=== PATIENT | female | born 1940 | race Caucasian/White ===

== ENCOUNTER 2022-01-20 14:08 | Inpatient (IN) | payer OTHER, MEDICARE ==
--- OUTSIDE RECORDS SUMMARY | 2022-01-20 14:11 | XMS REPORT | Continuity of Care Document ---
:1940 Author Organization [facility] Address [address] [place] [address] Care Team Providers Name Role Phone ALO Attending Clinician Unavailable KEYANA Attending Clinician Unavailable ADELINA Attending Clinician Unavailable ANDRES Attending Clinician Unavailable Problems This patient has no known problems. Allergies, Adverse Reactions, Alerts This patient has no known allergies or adverse reactions. Medications This patient has no known medications. Procedures This patient has no known procedures. Encounters Start End Encounter Admission Attending Care Care Encounter Source Date/Time Date/Time Type Type Clinicians Facility Department ID 2022-01-01 2022-01-01 Outpatient [facility] [id number] [place] 00:00:00 00:00:00 DENISE [address] 2021-11-21 2021-11-21 [facility] [id number] [place] 00:00:00 00:00:00 DENISE [address] 2021-10-25 2021-10-25 [facility] [id number] [place] 00:00:00 00:00:00 DENISE [address] 2021-09-06 2021-09-06 [facility] [id number] [place] 00:00:00 00:00:00 LISA [address] 2021-08-17 2021-08-17 [facility] [id number] [place] 00:00:00 00:00:00 LISA [address] 2021-08-14 2021-08-14 [facility] [id number] [place] 00:00:00 00:00:00 LISA [address] 2021-08-11 2021-08-11 [facility] [id number] [place] 00:00:00 00:00:00 LISA [address] 2021-08-09 2021-08-09 Outpatient WEINER, [facility] [id number] [place] 00:00:00 00:00:00 LISA [address] 2021-08-02 2021-08-02 Outpatient WEINER, [facility] [id number] [place] 00:00:00 00:00:00 LISA [address] 2021-07-31 2021-07-31 Outpatient WEINER, [facility] [id number] [place] 00:00:00 00:00:00 LISA [address] 2021-07-11 2021-07-11 Outpatient WEINER, [facility] [id number] [place] 00:00:00 00:00:00 LISA [address] 2021-07-06 2021-07-06 Outpatient WEINER, [facility] [id number] [place] 00:00:00 00:00:00 LISA [address] 2021-07-06 2021-07-06 Outpatient WEINER, [facility] [id number] [place] 00:00:00 00:00:00 LISA [address] 2021-07-04 2021-07-04 Outpatient WEINER, [facility] [id number] [place] 00:00:00 00:00:00 LISA [address] 2021-06-29 2021-06-29 Outpatient ALO, [facility] [id number] [place] 00:00:00 00:00:00 DENISE [address] 2021-05-24 2021-05-24 Outpatient [facility] [id number] [place] 00:00:00 00:00:[address] 2020-12-28 2020-12-28 Outpatient ALO, [facility] [id number] [place] 00:00:00 00:00:00 DENISE [address] 2020-09-09 2020-09-09 Outpatient SAHU, DIONNE [facility] [id number] [place] 00:00:00 00:00:[address] 2020-06-29 2020-06-29 Outpatient ALO, [facility] [id number] [place] 00:00:00 00:00:00 DENISE [address] 2020-06-29 2020-06-29 Outpatient ALO [facility] [id number] [place] 00:00:00 00:00:00 DENISE [address] 2019-12-15 2019-12-15 Outpatient ALO [facility] [id number] [place] 00:00:00 00:00:00 DENISE [address] 2019-11-13 2019-11-13 Outpatient ANDRES [facility] [id number] [place] 00:00:00 00:00:00 WILLEM [address] 2019-11-13 2019-11-13 Outpatient ANDRES [facility] [id number] [place] 00:00:00 00:00:00 WILLEM [address] 2019-08-20 2019-08-20 Outpatient DIONNE SAHU [facility] [id number] [place] 00:00:00 00:00:[address] 2019-08-20 2019-08-20 Outpatient DIONNE SAHU [facility] [id number] [place] 00:00:00 00:00:[address] 2019-06-11 2019-06-11 Outpatient ALO [facility] [id number] [place] 00:00:00 00:00:00 DENISE [address] Results This patient has no known results.
[2022-01-20 15:03] LABS: Absolute Lymphocytes (CBC) 1.6 K/uL (0.7-4.9); Hematocrit 38.6 % (36.0-45.0); Lymphocytes % 19.3 % (15.3-44.8); Protime INR 0.98; RBC Red Blood Cell Count 4.38 M/uL (3.86-4.86)
[2022-01-20] MEDS ORDERED: NA CHLORIDE 0.9% 1,000 ML ONE (15:18)
[2022-01-20] MEDS ORDERED: ONDANSETRON 4 MG/2 ML VIAL ONE (15:18)
[2022-01-20] MEDS ORDERED: MECLIZINE HCL 12.5 MG TAB ONE (15:18)
[2022-01-20 15:22] LABS: Albumin 4.2 g/dL (3.4-5.0); Bilirubin Direct 0.2 mg/dL (0-0.2); Bilirubin Total 0.8 mg/dL (0.2-1.0); Magnesium 1.8 mg/dL (1.8-2.4); Potassium 4.5 mmol/L (3.5-5.1); Protein, Total 7.9 g/dL (6.4-8.2); Troponin High Sensitivity 23.7 pg/mL (<58.9)
[2022-01-20 15:25] LABS: Blood Morphology Comment NOT SEEN (NOT SEEN); Platelet Estimate ADEQ; White Blood Cell Scan OK (OK)
--- NOTE | 2022-01-20 15:57 | RAD REPORT ---
EXAM DESCRIPTION: CT - Head Brain Wo Cont - 01/20/2022 3:42 pm CLINICAL HISTORY: Head trauma, minor COMPARISON: No comparisons TECHNIQUE: Axial 5 mm thick images of the head were obtained without IV contrast. All CT scans are performed using dose optimization technique as appropriate and may include automated exposure control or mA/KV adjustment according to patient size. FINDINGS: No intracranial hemorrhage, mass, edema or shift of mid-line structures. No cortical based infarction seen. No cortical edema or sulcal effacement. Mild to moderate atrophy changes are presen t with ventricles in proportion to the amount of volume loss. Chronic ischemic change in the cerebral white matter is mild for age. Arterial tree calcifications are present. No abnormal extra-axial flui d collections. Mastoid air cells and visualized portions of the paranasal sinuses are clear. No acute bony findings. IMPRESSION: Negative non-contrast CT head examination for acute finding. Mild to moderate atrophy present with ventricles in proportion. Chronic ischemic changes are mild.
--- NOTE | 2022-01-20 16:57 | RAD REPORT ---
EXAM DESCRIPTION: RAD - Pelvis - 01/20/2022 4:12 pm CLINICAL HISTORY: BLUNT TRAUMA COMPARISON: PELVIS dated 03/29/2015; Hip Left 2 View dated 01/20/2022 TECHNIQUE: AP imaging of the pelvis was obtained. FINDINGS: Lower lumbar degenerative changes are present. There are prominent L5-S1 facet joint degen erative changes. SI joint degenerative changes mild. No acute sacral ala finding. These lumbosacral f indings are stable from comparison. No fracture of the bony pelvis. No acute hip joint finding. Bony hypertrophy is seen adjacent to each greater trochanter. No AVN or focal femoral head abnormality. Arterial tree calcifications are prese nt. IMPRESSION: No fracture or acute pelvis finding.
--- NOTE | 2022-01-20 16:59 | RAD REPORT ---
EXAM DESCRIPTION: RAD - Hip Left 2 View - 01/20/2022 4:12 pm CLINICAL HISTORY: PAIN COMPARISON: Hip Left 2 View dated 03/29/2015 FINDINGS: AP and frogleg views of the left hip were obtained. There is no fracture or dislocation. No acute or destructive bony process seen. Degenerative spurrin g changes are seen at the greater trochanter similar to comparison. Arterial calcifications are prese nt. No periarticular abnormality seen. IMPRESSION: Left hip joint degenerative changes are present as detailed. No acute findings seen. Hip findings are similar to the 2015 study.
--- NOTE | 2022-01-20 16:59 | RAD REPORT ---
EXAM DESCRIPTION: RAD - Chest Single View - 01/20/2022 4:12 pm CLINICAL HISTORY: CONGESTION COMPARISON: None available TECHNIQUE: AP portable chest image was obtained 01/20/2022 4:12 pm . FINDINGS: Lung volumes are low. No peripheral mass or consolidation. Heart and vasculature are linette l. No measurable pleural effusion and no pneumothorax. No acute bony abnormality seen. No acute aorti c findings suspected. IMPRESSION: No acute cardiopulmonary process.
--- NOTE | 2022-01-20 17:06 | ER ---
Nurse's Notes [facility] Name: Darlyn Nicole Age: 81 yrs Sex: Female : 1940 Arrival Date: 01/20/2022 Time: 14:11 Bed 15 Private MD: Diagnosis: Hypo-osmolality and hyponatremia Presentation: 01/20 14:30 Chief complaint: Patient states: Dizziness, N/V that began approximately 1 week ago. Pt ss reports she fell from standing on Saturday and then today rolled out of bed. Did not injure herself, but is concerned that the dizziness may be causing her frequent falls. Coronavirus screen: Client denies travel out of the [place] in the last 14 days. Ebola Screen: Patient denies exposure to infectious person. Patient denies travel to an Ebola-affected area in the 21 days before illness onset. Initial Sepsis Screen: Does the patient meet any 2 criteria? No. Patient's initial sepsis screen is negative. Does the patient have a suspected source of infection? No. Patient's initial sepsis screen is negative. Risk Assessment: Do you want to hurt yourself or someone else? Patient reports no desire to harm self or others. Onset of symptoms was January 13, 2022. 14:30 Method Of Arrival: Wheelchair ss 14:30 Acuity: JOSEFINA 3 ss Historical: - Allergies: 14:33 Amoxicillin; ss 14:59 Macrobid; vg1 14:59 Metoprolol Tartrate; vg1 14:59 rosuvastatin; vg1 - Home Meds: 14:59 amlodipine oral [Active]; atorvastatin oral [Active]; Desmopressin Acetate Nasal vg1 [Active]; gabapentin oral [Active]; Lisinopril Oral [Active]; meloxicam oral [Active]; Myrbetriq oral [Active]; Omeprazole Oral [Active]; solifenacin oral [Active]; Triamterene-Hydrochlorothiazid Oral [Active]; - PMHx: 14:59 Restless Leg Syndrome; Syncope; CAD; Hypercholesterolemia; Depressive disorder; vg1 Osteoarthritis; Osteopenia; Sleep apnea; - PSHx: 14:59 CABG; vg1 - Immunization history:: Client reports receiving the 2nd dose of the Covid vaccine. - Social history:: Smoking status: Patient denies any tobacco usage or history of. - Family history:: not pertinent. Screenin:45 Abuse screen: Denies threats or abuse. Denies injuries from another. Nutritional awad screening: No deficits noted. Tuberculosis screening: No symptoms or risk factors identified. Fall Risk None identified. Assessment: 14:44 Pain:. awad 14:44 General: Appears in no apparent distress. Behavior is calm, cooperative. Neuro: No awad deficits noted. Level of Consciousness is awake, alert, obeys commands. Cardiovascular: Reports fatigue, nausea, syncope. GI: Reports. 14:45 GI: Reports nausea, vomiting. awad 14:57 Reassessment: Pt reports pain in Left leg; stated more towards left buttocks; reports vg1 dizziness when standing and 'feels better when laying down'. Respiratory: Airway is patent Respiratory effort is even, unlabored. : No signs and/or symptoms were reported regarding the genitourinary system. EENT: No signs and/or symptoms were reported regarding the EENT system. Derm: Skin is intact, is healthy with good turgor. Musculoskeletal: Circulation, motion, and sensation intact. 16:30 Reassessment: Patient appears in no apparent distress at this time. Patient and/or vg1 family updated on plan of care and expected duration. Pain level reassessed. Patient is alert, oriented x 3, equal unlabored respirations, skin warm/dry/pink. Patient states feeling better. 17:06 Reassessment: Purewick catheter placed on pt on high suction. vg1 17:30 Reassessment: Patient appears in no apparent distress at this time. Patient and/or vg1 family updated on plan of care and expected duration. Pain level reassessed. Patient is alert, oriented x 3, equal unlabored respirations, skin warm/dry/pink. Patient denies pain at this time. Patient states feeling better. Vital Signs: 14:30 BP 116 / 55; Pulse 80; Resp 16; Temp 97.8(TE); Pulse Ox 100% on R/A; Weight 74.84 kg; ss Height 5 ft. 5 in. (165.10 cm); Pain 0/10; 15:05 BP 117 / 65 Supine; tp1 15:05 BP 112 / 58 Sitting; tp1 15:05 BP 105 / 61 Standing; tp1 16:00 BP 123 / 58; Pulse 75; Resp 16; Pulse Ox 100% on R/A; vg1 17:00 BP 133 / 77; Pulse 85; Resp 18; Pulse Ox 100% on R/A; vg1 14:30 Body Mass Index 27.46 (74.84 kg, 165.10 cm) ED Course: 14:11 Patient arrived in ED. mr 14:33 Triage completed. ss 14:33 Arm band placed on right wrist. ss 14:37 Shani Andrew, RN is Primary Nurse. vg1 14:41 Eyal Wick MD is Attending Physician. ma2 14:45 Patient has correct armband on for positive identification. Bed in low position. awad 14:45 No provider procedures requiring assistance completed. awad 15:44 Head Brain Wo Cont In Process Unspecified. EDMS 16:14 XRAY Chest (1 view) In Process Unspecified. EDMS 16:14 XRAY Hip LEFT 2 view In Process Unspecified. EDMS 16:14 XRAY Pelvis In Process Unspecified. EDMS 17:05 Joshua Zarate is Hospitalizing Provider. ma2 Administered Medications: 15:17 Drug: NS 0.9% 1000 ml Route: IV; Rate: 1 bolus; Site: left forearm; vg1 17:57 Follow up: IV Status: Completed infusion; IV Intake: 1000ml vg1 15:18 Drug: Zofran (Ondansetron) 4 mg Route: IVP; Site: left forearm; vg1 16:31 Follow up: Response: No adverse reaction; No change in condition vg1 15:22 Drug: Meclizine 50 mg Route: PO; vg1 16:31 Follow up: Response: No adverse reaction; Marked relief of symptoms vg1 Medication: 14:45 VIS not applicable for this client. awad Intake: 17:57 IV: 1000ml; Total: 1000ml. vg1 Outcome: 17:05 Decision to Hospitalize by Provider. ma2 21:30 Admitted to ICU accompanied by nurse, via stretcher, room ICU7, with oxygen, on ll1 monitor, with chart, Report called to Claire Simmons RN 21:30 Patient left the ED. ll1 Signatures: Dispatcher [employer] [facility] Carole FletcherAudra RN RN Eyal Wick MD MD ma2 Shani Andrew RN RN 1 Jackelin Jose RN RN kings1 Morenita Mckoy tp1 Au-Stager, Joyce, RN RN awad
--- NOTE | 2022-01-20 17:06 | EDPHYS ---
Physician Documentation [facility] Name: Darlyn Nicole Age: 81 yrs Sex: Female : 1940 Arrival Date: 01/20/2022 Time: 14:11 Bed 15 Private MD: ED Physician Eyal Wick HPI: 01/20 15:14 This 81 yrs old Female presents to ER via Wheelchair with complaints of Fall Injury, ma2 Dizziness. 15:14 Onset: The symptoms/episode began/occurred gradually, 1 day(s) ago. Severity of ma2 symptoms: in the emergency department the symptoms are unchanged. 51-year-old female presents with lightheadedness and dizziness has been intermittent for the last 3 days patient stated that she felt yesterday hit the left buttock, patient said that she is lightheaded and unable to walk as she is afraid that she is going to fall patient has nausea no vomiting. Had similar symptoms in the past denies vertigo. Historical: - Allergies: 14:33 Amoxicillin; ss 14:59 Macrobid; vg1 14:59 Metoprolol Tartrate; vg1 14:59 rosuvastatin; vg1 - Home Meds: 14:59 amlodipine oral [Active]; atorvastatin oral [Active]; Desmopressin Acetate Nasal vg1 [Active]; gabapentin oral [Active]; Lisinopril Oral [Active]; meloxicam oral [Active]; Myrbetriq oral [Active]; Omeprazole Oral [Active]; solifenacin oral [Active]; Triamterene-Hydrochlorothiazid Oral [Active]; - PMHx: 14:59 Restless Leg Syndrome; Syncope; CAD; Hypercholesterolemia; Depressive disorder; vg1 Osteoarthritis; Osteopenia; Sleep apnea; - PSHx: 14:59 CABG; vg1 - Immunization history:: Client reports receiving the 2nd dose of the Covid vaccine. - Social history:: Smoking status: Patient denies any tobacco usage or history of. - Family history:: not pertinent. ROS: 15:14 Constitutional: Negative for fever, chills, and weight loss. ma2 15:14 All other systems are negative. Exam: 15:14 Constitutional: This is a well developed, well nourished patient who is awake, alert, ma2 and in no acute distress. Head/Face: Normocephalic, atraumatic. Eyes: Pupils equal round and reactive to light, extra-ocular motions intact. Lids and lashes normal. Conjunctiva and sclera are non-icteric and not injected. Cornea within normal limits. Periorbital areas with no swelling, redness, or edema. ENT: Nares patent. No nasal discharge, no septal abnormalities noted. Tympanic membranes are normal and external auditory canals are clear. Oropharynx with no redness, swelling, or masses, exudates, or evidence of obstruction, uvula midline. Mucous membranes moist. Neck: Trachea midline, no thyromegaly or masses palpated, and no cervical lymphadenopathy. Supple, full range of motion without nuchal rigidity, or vertebral point tenderness. No Meningismus. Chest/axilla: Normal chest wall appearance and motion. Nontender with no deformity. No lesions are appreciated. Cardiovascular: Regular rate and rhythm with a normal S1 and S2. No gallops, murmurs, or rubs. Normal PMI, no JVD. No pulse deficits. Respiratory: Lungs have equal breath sounds bilaterally, clear to auscultation and percussion. No rales, rhonchi or wheezes noted. No increased work of breathing, no retractions or nasal flaring. Abdomen/GI: Soft, non-tender, with normal bowel sounds. No distension or tympany. No guarding or rebound. No evidence of tenderness throughout. Back: No spinal tenderness. No costovertebral tenderness. Full range of motion. Skin: Warm, dry with normal turgor. Normal color with no rashes, no lesions, and no evidence of cellulitis. MS/ Extremity: Pulses equal, no cyanosis. Neurovascular intact. Full, normal range of motion. Neuro: Awake and alert, GCS 15, oriented to person, place, time, and situation. Cranial nerves II-XII grossly intact. Motor strength 5/5 in all extremities. Sensory grossly intact. Cerebellar exam normal. Normal gait. Vital Signs: 14:30 BP 116 / 55; Pulse 80; Resp 16; Temp 97.8(TE); Pulse Ox 100% on R/A; Weight 74.84 kg; ss Height 5 ft. 5 in. (165.10 cm); Pain 0/10; 15:05 BP 117 / 65 Supine; tp1 15:05 BP 112 / 58 Sitting; tp1 15:05 BP 105 / 61 Standing; tp1 16:00 BP 123 / 58; Pulse 75; Resp 16; Pulse Ox 100% on R/A; vg1 17:00 BP 133 / 77; Pulse 85; Resp 18; Pulse Ox 100% on R/A; vg1 14:30 Body Mass Index 27.46 (74.84 kg, 165.10 cm) ss MDM: 14:44 Patient medically screened. ri2 17:03 Differential diagnosis: abrasion, multiple trauma, sprain, strain. Data reviewed: vital ri2 signs, nurses notes. Counseling: I had a detailed discussion with the patient and/or guardian regarding: the historical points, exam findings, and any diagnostic results supporting the discharge/admit diagnosis, the presence of at least one elevated blood pressure reading (>120/80) during this emergency department visit, the need for outpatient follow up. Response to treatment: the patient's symptoms have markedly improved after treatment. 17:04 ED course: . ri2 01/20 14:44 Order name: Basic Metabolic Panel; Complete Time: 17:00 [facility] 01/20 14:44 Order name: CBC with Diff; Complete Time: 17:00 [facility] 01/20 14:44 Order name: LFT's; Complete Time: 17:00 [facility] 01/20 14:44 Order name: Magnesium; Complete Time: 17:00 [facility] 01/20 14:44 Order name: NT PRO-BNP; Complete Time: 17:00 [facility] 01/20 14:44 Order name: PT-INR; Complete Time: 17:00 [facility] 01/20 14:44 Order name: CT Head Brain wo Cont ri2 01/20 14:44 Order name: Troponin HS; Complete Time: 17:00 [facility] 01/20 14:44 Order name: XRAY Chest (1 view); Complete Time: 17:02 [facility] 01/20 14:48 Order name: Head Brain Wo Cont; Complete Time: 17:00 [facility] 01/20 15:26 Order name: CBC Smear Scan; Complete Time: 17:00 [facility] 01/20 18:03 Order name: Urine Dipstick-Ancillary; Complete Time: 18:13 [facility] 01/20 18:56 Order name: SARS-COV-2 RT PCR (Document "Date of Onset" if Symptomatic) [facility] 01/20 20:44 Order name: SARS-COV-2 RT PCR [facility] 01/20 14:44 Order name: EKG; Complete Time: 14:45 [facility] 01/20 14:44 Order name: Cardiac monitoring; Complete Time: 15:09 [facility] 01/20 14:44 Order name: EKG - Nurse/Tech; Complete Time: 15:09 [facility] 01/20 14:44 Order name: IV Saline Lock; Complete Time: 15:09 [facility] 01/20 14:44 Order name: Labs collected and sent; Complete Time: 15:09 [facility] 01/20 14:44 Order name: O2 Per Protocol; Complete Time: 15:09 [facility] 01/20 14:44 Order name: O2 Sat Monitoring; Complete Time: 15: [facility] 01/20 14:44 Order name: Urine Dipstick-Ancillary (obtain specimen); Complete Time: 18:54 [facility] 01/20 15:11 Order name: XRAY Hip LEFT 2 view; Complete Time: 17:00 [facility] 01/20 15:11 Order name: XRAY Pelvis; Complete Time: 17:00 ma2 Administered Medications: 15:17 Drug: NS 0.9% 1000 ml Route: IV; Rate: 1 bolus; Site: left forearm; vg1 17:57 Follow up: IV Status: Completed infusion; IV Intake: 1000ml vg1 15:18 Drug: Zofran (Ondansetron) 4 mg Route: IVP; Site: left forearm; vg1 16:31 Follow up: Response: No adverse reaction; No change in condition vg1 15:22 Drug: Meclizine 50 mg Route: PO; vg1 16:31 Follow up: Response: No adverse reaction; Marked relief of symptoms vg1 Disposition Summary: 01/20/22 17:05 Hospitalization Ordered Hospitalization Status: Inpatient Admission ma2 Provider: Joshua Zarate maAntonio Condition: Stable ma2 Problem: new ma2 Symptoms: are unchanged ma2 Bed/Room Type: Standard ri2 Location: Intensive Care Unit(01/20/22 20:47) ll1 Room Assignment: 7-(01/20/22 20:47) 1 Diagnosis - Hypo-osmolality and hyponatremia ma2 Forms: - Medication Reconciliation Form ma2 - SBAR form ma2 Signatures: Dispatcher [employer] [facility] Audra Sim RN RN ss Eyal Wick MD MD ma2 Shani Andrew RN RN 1 Jackelin Jose RN RN ll1 Naila Hernandez PA PA sb3 Corrections: (The following items were deleted from the chart) 20:47 17:05 Telemetry/MedSurg (Inpatient) [place] [id number] 20:47 17:05 [place] [id number]
[2022-01-20 18:03] LABS: Urine Blood Negative (Negative); Urine Glucose Negative (Negative); Urine Protein Negative (Negative); Urine Specific Gravity 1.015 (1.005-1.030)
--- NOTE | 2022-01-20 18:20 | P.HP ---
Certification for Inpatient Patient admitted to: Inpatient With expected LOS: >2 Midnights Practitioner: I am a practitioner with admitting privileges, knowledge of patient current condition, hospital course, and medical plan of care. Services: Services provided to patient in accordance with Admission requirements found in Title 42 Section 412.3 of the Code of Federal Regulations Patient History Date of Service: 01/20/22 Reason for admission: Nausea and vomiting History of Present Illness: 81-year-old woman with a history of urinary incontinence, hypertension, was brought from assisted living to the emergency department because of nausea and vomiting. Per report patient fell on her buttocks yesterday. Imaging done in emergency department showed no fracture. Patient reported vomiting a couple of times followed by dry heaving. She states that she has not been able to eat for couple of days. Blood work showed severe hyponatremia with sodium level 111. Family reports patient is confused. She is on desmopressin for polyuria. Patient diagnosed with desmopressin induced hyponatremia. She is admitted to the ICU for close monitoring and further management. Allergies amoxicillin Allergy (Unverified 03/29/15 02:58) Unknown - Past Medical/Surgical History Diabetic: No -: Hypertension -: Restless leg syndrome -: History of syncope -: Coronary artery disease -: Depression -: Urge incontinence -: Osteoarthritis -: Sleep apnea -: Vitamin D deficiency -: Hypercholesterolemia -: CABG - Family History Mother -: Stroke - Social History Smoking Status: Never smoker Alcohol use: No Place of Residence: Home Review of Systems Other: Except as documented, all other systems reviewed and negative. Physical Examination - Physical Exam General: In no apparent distress, Oriented x3 HEENT: PERRLA, Mucous membr. moist/pink, EOMI, Sclerae nonicteric Neck: Supple, JVD not distended Respiratory: Clear to auscultation bilaterally, Normal air movement Cardiovascular: No edema, Regular rate/rhythm, Normal S1 S2 Capillary refill: <2 Seconds Gastrointestinal: Normal bowel sounds, Soft and benign, Non-distended, No tenderness Musculoskeletal: No swelling, No tenderness Integumentary: No rashes, No erythema, No cyanosis Neurological: Normal speech, Normal strength at 5/5 x4 extr, Cranial nerves 3-12 intact Lymphatics: No axilla or inguinal lymphadenopathy - Studies Laboratory Data (last 24 hrs) 01/20/22 14:45: PT 10.8, INR 0.98 01/20/22 14:45: WBC 8.1, Hgb 13.1, Hct 38.6, Plt Count 138 L 01/20/22 14:45: Sodium 111 L*, Potassium 4.5, BUN 23 H, Creatinine 1.24, Glucose 119 H, Magnesium 1.8, Total Bilirubin 0.8, AST 54 H, ALT 46, Alkaline Phosphatase 82 Assessment and Plan - Problems (Diagnosis) (1) Hyponatremia Current Visit: Yes Status: Acute (2) Metabolic encephalopathy Current Visit: Yes Status: Acute (3) Dehydration Current Visit: Yes Status: Acute (4) History of depression Current Visit: Yes Status: Acute - Plan Patient has desmopressin induced hyponatremia. She is admitted to the ICU for close monitoring due to high risk of sodium overcorrection after discontinuing desmopressin. Monitor BMP every 6 hours. Patient will be given intermittent IV normal saline or D5 water depending on the rate of correction. Nephrology consulted. Discontinue desmopressin and all SSRI/NSRI. Check TSH and free T4 and lipid profile Neurochecks. Diet as tolerated. PT consult. - Advance Directives Does patient have a Living Will: No Does patient have a Durable POA for Healthcare: No
[2022-01-20 22:26] LABS: Potassium 3.8 mmol/L (3.5-5.1)
[2022-01-20] MEDS ORDERED: D5W 1,000 ML IV SCH (23:26)
[2022-01-20] MEDS ORDERED: ACETAMINOPHEN 500 MG TAB PO PRN (23:26)
[2022-01-20] MEDS ORDERED: ONDANSETRON 4 MG/2 ML VIAL IV PRN (23:26)
[2022-01-20] MEDS ORDERED: D5W 500 ML IV SCH ×2 (23:26→23:34)
[2022-01-21 04:41] LABS: Lymphocytes % 24.5 % (15.3-44.8); MPV 7.7 fL (7.6-11.3); RBC Red Blood Cell Count 3.69 M/uL (3.86-4.86)
[2022-01-21 05:09] LABS: Magnesium 1.8 mg/dL (1.8-2.4); Phosphorus 3.1 mg/dL (2.5-4.9); Potassium 3.6 mmol/L (3.5-5.1); Thyroid Stimulating Hormone 0.439 uIU/mL (0.360-3.740)
--- NOTE | 2022-01-21 10:01 | P.PN ---
Subjective Date of Service: 01/21/22 Chief Complaint: Nausea and vomiting Patient denies any complaint today. Her sodium level has improved to 115. It went up to 121 and she was given D5 water to reduce overcorrection. Physical Examination - Vital Signs Temperature: 97.2 F Blood Pressure: 120/61 Pulse: 72 Respirations: 12 Pulse Ox (%): 100 - Physical Exam General: Alert, In no apparent distress, Oriented x3 HEENT: Mucous membr. moist/pink, EOMI, Sclerae nonicteric Neck: Supple, JVD not distended Respiratory: Clear to auscultation bilaterally, Normal air movement Cardiovascular: No edema, Regular rate/rhythm, Normal S1 S2 Gastrointestinal: Normal bowel sounds, Soft and benign, Non-distended, No tenderness Musculoskeletal: No swelling, No tenderness Integumentary: No rashes Neurological: Normal strength at 5/5 x4 extr, Cranial nerves 3-12 intact - Studies Laboratory Data (last 24 hrs) 01/20/22 14:45: PT 10.8, INR 0.98 01/20/22 14:45: WBC 8.1, Hgb 13.1, Hct 38.6, Plt Count 138 L 01/20/22 14:45: Sodium 111 L*, Potassium 4.5, BUN 23 H, Creatinine 1.24, Glucose 119 H, Magnesium 1.8, Total Bilirubin 0.8, AST 54 H, ALT 46, Alkaline Phosphatase 82 Assessment And Plan - Current Problems (Diagnosis) (1) Hyponatremia Current Visit: Yes Status: Acute (2) Metabolic encephalopathy Current Visit: Yes Status: Acute (3) Dehydration Current Visit: Yes Status: Acute (4) History of depression Current Visit: Yes Status: Acute - Plan Patient has desmopressin induced hyponatremia. She is admitted to the ICU for close monitoring due to high risk of sodium overcorrection after discontinuing desmopressin. Nephrology is following and assisting with management Intermittent IV normal saline or D5 water depending on the rate of correction. Continue to monitor BMP every 6 hours. Desmopressin discontinued. All SSRI/NSRI on hold. TSH within normal limits. Neurochecks. Diet as tolerated. PT to evaluate.
[2022-01-21] MEDS: ENOXAPARIN 40 MG/0.4 ML SQ SCH (10:19)
[2022-01-21 12:09] LABS: Potassium 3.8 mmol/L (3.5-5.1)
[2022-01-21] MEDS ORDERED: D5W 1,000 ML IV SCH (13:00)
[2022-01-21] MEDS ORDERED: D5W 500 ML IV SCH (13:00)
--- NOTE | 2022-01-21 13:21 | P.CNS ---
Date of Consult: 01/21/22 Reason for Consult: hyponatremia Chief Complaint: Nausea and vomiting History of Present Illness: An 81-year-old woman with a history of urinary incontinence on Decompression, hypertension on triamterene/HCTZ , CAD S/p CABG and Depression on SSRI was brought from assisted living to the emergency department because of nausea and vomiting and dizziness . pt was feeling dizzy for the last few days , fell to the ground , denied LOC or head trauma, in ER Na 111, pt was AAOX3 , previous records from 2014 showed na 129, pt denied excessive fluid intake , she is on decompressin for urinary incontinence General: Awake, NAD HEENT: Atraumatic, Normocephalic Neck: Supple, no elevated JVD Respiratory: Other CTAB. No rales or wheezes Cardiovascular: No rubs, No murmurs Gastrointestinal: Soft and benign, Non-distended Musculoskeletal: No clubbing Integumentary: No warmth Neurological: Normal tone, Sensation intact Lymphatics: No axilla or inguinal lymphadenopathy Urinary: Other (no bladder distention) A/P # Dry to Euvolemic hyponatremia likely multifactroial due to desmopressin +/- HCTZ +/- SSRI target sodium 123 by tomorrow's noon today over corrected , will start D5W liberalize fluid intake cont to hold DDVAP, HCTZ and SSRI encourage to increase fluid and solid food intake will order Cortison , uric acid level and urine lytes #nausea vomiting and fall possibly due to hyponatremia #Hx of urinary incontinence cont molina for now for strict I/o hold desmopressin #HTN Bp borderline cont to hold BP meds Total time spent 65 minutes including documentation, reviewing labs , placing orders and discussing plan of care with medical staff and pt Allergies amoxicillin Allergy (Unverified 03/29/15 02:58) Unknown Home Medications: Amlodipine [Norvasc*] 10 mg PO DAILY 01/21/22 Atorvastatin Calcium [Lipitor] 40 mg PO DAILY 01/21/22 Desmopressin Acetate [Ddavp] 0.2 mg PO DAILY 01/21/22 Desvenlafaxine [Desvenlafaxine ER] 50 mg PO DAILY 01/21/22 Folic Acid/Vit B Complex and C [Folbee Plus Tablet] 5 mg PO DAILY 01/21/22 Gabapentin [Gralise] 600 mg PO DAILY 01/21/22 Lisinopril [Zestril] 40 mg PO BID 01/21/22 Meloxicam [Mobic*] 7.5 mg PO DAILY 01/21/22 Mirabegron [Myrbetriq] 25 mg PO DAILY 01/21/22 Omeprazole 20 mg PO DAILY 01/21/22 Rotigotine [Neupro] 6 mg TOP DAILY 01/21/22 Solifenacin [Vesicare*] 10 mg PO DAILY 01/21/22 Triamterene/Hydrochlorothiazid [Triamterene-Hctz 37.5-25 mg Tb] 37.5 mg PO DAILY 01/21/22 - Past Medical/Surgical History Diabetic: No -: Hypertension -: Restless leg syndrome -: History of syncope -: Coronary artery disease -: Depression -: Urge incontinence -: Osteoarthritis -: Sleep apnea -: Vitamin D deficiency -: Hypercholesterolemia -: CABG - Family History Mother History Unknown: Yes Medical History: Stroke - Social History Alcohol use: No CD- Drugs: No Caffeine use: Yes Place of Residence: Home Physical Examination Temp Pulse Resp BP Pulse Ox 97.2 F 72 12 120/61 100 01/21/22 10:01 01/21/22 10:01 01/21/22 10:01 01/21/22 10:01 01/21/22 10:01 Laboratory Data (last 24 hrs) 01/20/22 14:45: PT 10.8, INR 0.98 01/20/22 14:45: WBC 8.1, Hgb 13.1, Hct 38.6, Plt Count 138 L 01/20/22 14:45: Sodium 111 L*, Potassium 4.5, BUN 23 H, Creatinine 1.24, Glucose 119 H, Magnesium 1.8, Total Bilirubin 0.8, AST 54 H, ALT 46, Alkaline Phosphatase 82
[2022-01-21 17:45] LABS: UR SODIUM 32 mmol/L (27-287)
[2022-01-21 17:46] LABS: UR POTASSIUM < 6.0 mmol/L (20-40)
[2022-01-21 18:51] LABS: Potassium 4.1 mmol/L (3.5-5.1)
[2022-01-22 00:07] LABS: Potassium 4.7 mmol/L (3.5-5.1)
[2022-01-22] MEDS ORDERED: D5W 500 ML IV SCH (02:00)
[2022-01-22] MEDS: D5W 1,000 ML IV SCH ×2 (02:00→09:05)
[2022-01-22 06:24] LABS: Potassium 4.2 mmol/L (3.5-5.1)
[2022-01-22 07:46] LABS: Magnesium 1.9 mg/dL (1.8-2.4); Phosphorus 3.2 mg/dL (2.5-4.9)
[2022-01-22] MEDS ORDERED: DEXTROSE 10%-WATER 500 ML IV ONE (08:15)
[2022-01-22] MEDS: ENOXAPARIN 40 MG/0.4 ML SQ SCH (08:22)
--- NOTE | 2022-01-22 10:52 | P.PN ---
Subjective Date of Service: 01/22/22 Chief Complaint: Nausea and vomiting Patient has no new complaint and desires to go home. Sodium level has improved to 125 and patient is currently receiving IV D5 water. Physical Examination - Vital Signs Temperature: 97.2 F Blood Pressure: 131/58 Pulse: 99 Respirations: 15 Pulse Ox (%): 95 - Physical Exam General: Alert, In no apparent distress, Oriented x3 HEENT: Mucous membr. moist/pink Neck: JVD not distended Respiratory: Clear to auscultation bilaterally, Normal air movement Cardiovascular: No edema, Regular rate/rhythm, Normal S1 S2 Gastrointestinal: Normal bowel sounds, Soft and benign, Non-distended, No tenderness Musculoskeletal: No swelling, No tenderness Integumentary: No rashes, No erythema, No cyanosis Neurological: Normal strength at 5/5 x4 extr, Cranial nerves 3-12 intact Assessment And Plan - Current Problems (Diagnosis) (1) Hyponatremia Current Visit: Yes Status: Acute (2) Metabolic encephalopathy Current Visit: Yes Status: Acute (3) Dehydration Current Visit: Yes Status: Acute (4) History of depression Current Visit: Yes Status: Acute (5) Orthostatic hypotension Current Visit: Yes Status: Acute - Plan Patient has desmopressin induced hyponatremia. Acute encephalopathy resolved. Patient mental status is currently at baseline. Sodium level up to 125. Nephrology is following and assisting with management Intermittent IV normal saline or D5 water as needed depending on the rate of correction. Continue to monitor BMP every 6 hours. Desmopressin discontinued. All SSRI/NSRI on hold. TSH within normal limits. Diet as tolerated. Seen by PT, patient noted to have orthostatic hypotension. Orthostatic precautions. Continue PT.
[2022-01-22 11:26] LABS: Potassium 3.7 mmol/L (3.5-5.1)
--- NOTE | 2022-01-22 11:28 | EKG ---
Test Date: 2022-01-20 Test Time: 14:39:19 Bird Trapper: ABIMAEL MEASUREMENT RESULTS: Intervals: Rate: 80 KS: 266 QRSD: 108 QT: 376 QTc: 433 [place]: P: KS: 266 QRS: 64 T: 131 INTERPRETIVE STATEMENTS: Sinus rhythm with 1st degree AV block RSR' or QR pattern in V1 suggests right ventricular conduction delay Anterolateral infarct, age undetermined Abnormal ECG Compared to ECG 01/20/2022 14:38:54 No significant changes Electronically Signed On 01-22-22 11:23:49 CDT by Aj Marquez
--- NOTE | 2022-01-22 11:28 | EKG ---
Test Date: 2022-01-20 Test Time: 14:38:54 Driver Utility Worker: ABIMAEL MEASUREMENT RESULTS: Intervals: Rate: 81 PA: 254 QRSD: 108 QT: 386 QTc: 448 [place]: P: PA: 254 QRS: 61 T: 140 INTERPRETIVE STATEMENTS: Sinus rhythm with 1st degree AV block RSR' or QR pattern in V1 suggests right ventricular conduction delay Lateral infarct, age undetermined Abnormal ECG Compared to ECG 01/25/1995 09:36:00 First degree AV block now present RSR' in V1 or V2 now present Myocardial infarct finding now present Electronically Signed On 01-22-22 11:23:50 CDT by Aj Marquez
--- NOTE | 2022-01-22 19:35 | P.PN ---
Date of Service: 01/23/22 Subjective: Altered mentation, agitated and confused overnight. Given 1 dose of 0.5 mg Ativan with slight improvement. Required second dose this morning. Remains confused but less agitated, not trying to get out of bed anymore. Significant difference compared to yesterday. Concern for withdrawal symptoms from her psych/Parkinson medications. Need to rule out potential UTI as well, UA ordered ROS: 10 point RoS as noted above, otherwise negative Physical Exam General: confused, AOx1 HEENT: Mucous membr. moist/pink Respiratory: Clear to auscultation bilaterally, Normal air movement Cardiovascular: No edema, Regular rate/rhythm Gastrointestinal: soft, nontender, nondistended Musculoskeletal: No swelling, No tenderness Neurological: moves all extremities, no focal defecits Problem List Hyponatremia Fall Acute metabolic encephalopathy secondary to hyponatremia vs med withdrawal Orthostatic hypotension Dehydration / Euvolemia h/o depression on SSRI h/o CAD/ s/p CABG most likely desmopressin induced hyponatremia, possibly further complicated by HCTZ / SSRI - all held on admission Initial acute encephalopathy resolved. She was back to her baseline on 01/22, however evening of 01/22 - 01/23 patient became more altered / agitated possibly due to withdrawal from SSRI/neupro patch. restart 01/23 possibly due to UTI, patient unable to give accurate history at this time. UA ordered Sodium level improved, plateau'd Nephrology is following and assisting with management to avoid over-correction TSH within normal limits. Diet as tolerated. Seen by PT, patient noted to have orthostatic hypotension. Orthostatic precautions. Continue PT. VTE: lovenox Code: full Dispo: from assisted living, anticipate dc ~1-2 days
[2022-01-22] MEDS: ATORVASTATIN 40 MG TAB PO SCH (20:32)
[2022-01-22] MEDS: ENSURE ENLIVE 237 ML CAN PO SCH (20:32)
[2022-01-22] MEDS ORDERED: MELATONIN 5 MG TABLET PO PRN (21:58)
[2022-01-23 01:00] LABS: Potassium 4.3 mmol/L (3.5-5.1)
[2022-01-23] MEDS: D5W 1,000 ML IV SCH ×3 (01:34→12:36)
[2022-01-23] MEDS ORDERED: LORazepam 2 MG/ML VIAL IV ONE ×2 (04:55→08:00)
[2022-01-23] MEDS ORDERED: LORazepam 2 MG/ML VIAL ONE (05:03)
[2022-01-23 08:45] LABS: Potassium 4.2 mmol/L (3.5-5.1)
[2022-01-23] MEDS ORDERED: HOME MED 1 EA UNK (Omeprazole [Omeprazole] 20 MG Capsule.Dr) PO SCH (09:00)
[2022-01-23] MEDS: SOLIFENACIN SUCCIN 5 MG TAB PO SCH (09:00)
[2022-01-23] MEDS: GABAPENTIN 600 MG PO SCH (09:00)
[2022-01-23] MEDS: ENSURE ENLIVE 237 ML CAN PO SCH ×2 (09:00→21:00)
[2022-01-23] MEDS: FOLBIC 1 TAB PO SCH (09:00)
[2022-01-23] MEDS: DESVENLAFAXINE SUCCINATE 50 MG ER TAB PO SCH (09:00)
[2022-01-23] MEDS: PANTOPRAZOLE 40MG TABLET PO SCH (09:00)
--- NOTE | 2022-01-23 10:13 | PN ---
Thanks Date of Progress Note: 01/22/2022 Chief Complaint: Hyponatremia, hypoosmolar. Subjective: The patient was admitted to the hospital because of nausea and vomiting. She was found to have severe hyponatremia. ER workup showed sodium of 111. The patient was alert and oriented x3. Previous records from 2015 show sodium level of 129. The patient denies excessive fluid intake, although she was treated with desmopressin for urinary incontinence. She is a assisted resident. She was brought from the assisted to the hospital by ambulance and she has history of urinary incontinence, on desmopressin; hypertension, on triamterene/HCTZ. She has also history of depression and she was treated SSRI. The patient was admitted to ICU. She is on D5W to adjust treatment of hyponatremia to prevent overly rapid correction. The patient was found to have euvolemic hyponatremia likely due to desmopressin associated with HCTZ effect, sodium was 123 yesterday. The patient primarily was overcorrected and then was started on D5W. Plan is to continue to adjust Iv fluids,evaluate electrolytes and adjust treatment according to lab results, the patient was to have cortisol level checked uric acid as well as urine electrolytes. Review of Systems: Denies PND or orthopnea. Objective: Lungs: Clear to auscultation bilaterally. Heart: S1, S2. Abdomen: Soft, benign. Extremities: No edema. Impression And Plan: 1. Hyponatremia, multifactorial. Continue D5W. Monitor electrolytes. 2. Nausea, vomiting, and status post fall likely secondary to hyponatremia which was severe on admission, plan is to continue D5W to prevent overly rapid correction of hyponatremia. 3. History of urinary incontinence. Desmopressin is on hold. Plan is to continue Camacho catheter. 4. Hypertension, borderline. Continue to hold blood pressure medication and monitor blood pressure. EB/MODCassius Voice ID: [id number] Report ID: [id number]
[2022-01-23] MEDS: ENOXAPARIN 30 MG/0.3 ML SQ SCH (11:07)
[2022-01-23] MEDS ORDERED: NA CHLORIDE 0.9% 1,000 ML IV SCH (13:00)
[2022-01-23 13:38] LABS: Potassium 4.7 mmol/L (3.5-5.1)
[2022-01-23] MEDS: ROTIGOTINE TOP SCH (14:59)
[2022-01-23 15:44] LABS: UR PROTEIN 13.6 mg/dL (<11.9); Urine Protein/Creatinine Ratio 0.49 ratio (<0.15)
[2022-01-23 15:52] LABS: Urine Appearance CLOUDY (Clear); Urine Color YELLOW (Yellow); Urine Specific Gravity <=1.005 (1.005-1.030)
[2022-01-23 15:55] LABS: Urine Bilirubin NEGATIVE (Negative); Urine Blood TRACE (Negative); Urine Glucose NEGATIVE (Negative); Urine Microscopic Reflex ORDER UMIC; Urine Protein NEGATIVE (Negative); Urine Urobilinogen 0.2 mg/dL (0.2-1.0); Urine pH 5.5 (5.0-7.0)
[2022-01-23 15:56] LABS: Urine Bacteria >50 /HPF (<20); Urine RBC <5 /HPF (NONE SEEN)
--- NOTE | 2022-01-23 19:07 | PN ---
Date of Progress Note: 01/23/2022 Subjective: The patient was admitted with hyponatremia. The patient had overcorrection. For that r [place], the patient was started on D5. Currently, sodium over the last 24 hour has been plateaued. Objective: Vital Signs: Blood pressure 133/63, pulse of 100, afebrile. The patient had good urine output. Chest: Clear to auscultation. Heart: S1 and S2, regular. Abdomen: Soft, nontender. Extremities: No edema. Neuro: Alert. No focality. Laboratory Data: WBC 8, H and H of 11.2/33. Sodium 125, potassium 4.2, bicarb 24, BUN 23, creatinin e 1.2, GFR 45, calcium 9.3. Assessment And Plan: 1.Acute kidney injury, secondary to prerenal plateaued, nonoliguric, looked to me normal volume. We will continue to monitor the patient. 2.Hyponatremia, secondary to syndrome of inappropriate antidiuretic hormone, currently plateaued. I am going to go ahead and change IV fluid to normal saline, and we will continue to monitor the patie nt. We will repeat chemistry and uric acid and urine electrolyte, and we will follow up the patient. 3.Hypertension, controlled optimal. Continue current treatment. 4.Altered mental status as by primary. BEA/HERNÁN Voice ID: [id number] Report ID: [id number]
--- NOTE | 2022-01-23 19:22 | RAD REPORT ---
EXAM DESCRIPTION: US - Renal Ultrasound-Complete - 01/23/2022 7:13 pm CLINICAL HISTORY: [facility] COMPARISON: CT ABD PELVIS W CONTRAST dated 03/29/2015 FINDINGS: The right kidney measures grossly 9 x 4 x 4 cm. The left kidney measures grossly 10 x 5 x 3.5 cm. Cortical thickness is normal. Both kidneys show a slight increase in cortical echogenicity c ould be medical renal disease or body habitus artifact. Fullness of each renal pelvis is noted. Patie nt has a history of extra renal pelves. Acute obstructive hydronephrosis is not suspected. No gross bladder abnormality seen. IMPRESSION: No obstructive hydronephrosis suspected. Patient has a history of extrarenal pelves vari ant. Increased echogenicity of the cortical tissue could be medical renal disease, body habitus artifact o r a combination.
[2022-01-23 20:38] LABS: Potassium 4.1 mmol/L (3.5-5.1)
[2022-01-23] MEDS: ATORVASTATIN 40 MG TAB PO SCH (20:59)
[2022-01-23] MEDS: CEFTRIAXONE 1,000 MG in NA CHLORIDE 0.9% 50 ML IVPB SCH (23:28)
[2022-01-24 05:01] LABS: Absolute Lymphocytes (CBC) 1.7 K/uL (0.7-4.9); Hematocrit 35.7 % (36.0-45.0); Lymphocytes % 19.2 % (15.3-44.8); MPV 8.1 fL (7.6-11.3); RBC Red Blood Cell Count 4.02 M/uL (3.86-4.86)
[2022-01-24 05:21] LABS: Albumin 3.4 g/dL (3.4-5.0); Phosphorus 4.5 mg/dL (2.5-4.9); Thyroid Stimulating Hormone 0.26 uIU/mL (0.360-3.740); Uric Acid 6.3 mg/dL (2.6-6.0)
--- NOTE | 2022-01-24 07:16 | P.PN ---
Date of Service: 01/24/22 Subjective: more awake/alert this morning still with some confusion does not recall last 2-3 days denies pain, no nausea ROS: 10 point ROS as noted above, otherwise negative Physical Exam General: confused, AOx1, calm HEENT: Mucous membr. moist/pink Respiratory: Clear to auscultation bilaterally, Normal air movement Cardiovascular: No edema, Regular rate/rhythm Gastrointestinal: soft, nontender, nondistended Musculoskeletal: No swelling, No tenderness Neurological: moves all extremities, no focal defecits Problem List Hyponatremia, acute on chronic Fall Acute metabolic encephalopathy secondary to hyponatremia vs med withdrawal Orthostatic hypotension Dehydration / Euvolemia h/o depression on SSRI h/o CAD/ s/p CABG most likely desmopressin induced hyponatremia, possibly further complicated by HCTZ / SSRI - all held on admission Initial acute encephalopathy resolved. She was back to her baseline on 01/22, however evening of 01/22 - 01/23 patient became more altered / agitated suspect due to withdrawal from SSRI/neupro patch. restarted 01/23 and now improving UA on 01/23 concern for UTI, rocephin started; given timing of improvement, encephalopathy felt due to held meds and not from uti f/u cultures Sodium level improving, Nephrology is following and assisting with management TSH within normal limits. Diet as tolerated. Seen by PT, patient noted to have orthostatic hypotension. recheck tomorrow, once stable to participate / following commands Orthostatic precautions. Continue PT. VTE: lovenox Code: full Dispo: from assisted living, anticipate dc ~1-2 days
[2022-01-24] MEDS: FOLBIC 1 TAB PO SCH (08:48)
[2022-01-24] MEDS: ENSURE ENLIVE 237 ML CAN PO SCH ×2 (08:48→20:47)
[2022-01-24] MEDS: PANTOPRAZOLE 40MG TABLET PO SCH (08:49)
[2022-01-24] MEDS: SOLIFENACIN SUCCIN 5 MG TAB PO SCH (08:49)
[2022-01-24] MEDS: ENOXAPARIN 30 MG/0.3 ML SQ SCH (08:49)
[2022-01-24] MEDS: DESVENLAFAXINE SUCCINATE 50 MG ER TAB PO SCH (08:49)
[2022-01-24] MEDS: GABAPENTIN 600 MG PO SCH (08:50)
[2022-01-24] MEDS: NA CHLORIDE 0.9% 1,000 ML IV SCH (11:00)
--- NOTE | 2022-01-24 17:16 | PN ---
Date of Progress Note: 01/24/2022 Subjective: The patient was admitted with acute kidney injury. The patient has acute kidney injury on chronic kidney disease. The patient had hyponatremia. Physical Examination: Vital Signs: When I saw the patient; blood pressure 107/61, pulse of 73, afebrile. Chest: Clear to auscultation. Heart: S1, S2. Regular. Abdomen: Soft, nontender. Extremity: Radicular rash on both lower thighs. No tenderness. No edema. Neuro: Alert. No focality. Laboratory Data: Sodium 130, potassium 4, bicarb 24, BUN 24, creatinine , uric acid 6.3, c alcium 9, phosphorus 4.5, magnesium of 2. TSH less than 0.2. Cortisol is 21. Urinalysis was positi ve for infection. Urine sodium of 17. Assessment And Plan: 1.Hyponatremia secondary to depletional, continued to recover. I am going to continue normal saline and we will follow up. 2.Hypertension, controlled, optimal. 3.Acute kidney injury secondary to prerenal, dehydration on chronic kidney disease, resolved. BEA/HERNÁN Voice ID: [id number] Report ID: [id number]
[2022-01-24] MEDS: CEFTRIAXONE 1,000 MG in NA CHLORIDE 0.9% 50 ML IVPB SCH (17:33)
[2022-01-24] MEDS: ROTIGOTINE TOP SCH (17:33)
[2022-01-24] MEDS: ATORVASTATIN 40 MG TAB PO SCH (20:47)
[2022-01-25] MEDS: NA CHLORIDE 0.9% 1,000 ML IV SCH ×2 (00:20→01:40)
[2022-01-25 06:12] LABS: Hematocrit 33.5 % (36.0-45.0); MPV 8.1 fL (7.6-11.3); RBC Red Blood Cell Count 3.68 M/uL (3.86-4.86)
[2022-01-25 06:29] LABS: Albumin 3.1 g/dL (3.4-5.0); Magnesium 2.1 mg/dL (1.8-2.4)
[2022-01-25] MEDS: GABAPENTIN 600 MG PO SCH (09:00)
[2022-01-25] MEDS: ENSURE ENLIVE 237 ML CAN PO SCH ×2 (10:45→20:18)
[2022-01-25] MEDS: SOLIFENACIN SUCCIN 5 MG TAB PO SCH (10:45)
[2022-01-25] MEDS: FOLBIC 1 TAB PO SCH (10:46)
[2022-01-25] MEDS: ENOXAPARIN 30 MG/0.3 ML SQ SCH (10:46)
[2022-01-25] MEDS: DESVENLAFAXINE SUCCINATE 50 MG ER TAB PO SCH (10:46)
[2022-01-25] MEDS: PANTOPRAZOLE 40MG TABLET PO SCH (10:46)
--- NOTE | 2022-01-25 12:28 | PN ---
Date of Progress Note: 01/25/2022 Subjective: The patient was admitted with hyponatremia, UTI. The patient's hyponatremia was seconda ry to depletional. The patient was started on treatment. Sodium gradually normalized. Physical Examination: Vital Signs: When I saw the patient; blood pressure 115/53, pulse of 76, afebrile. Chest: Clear to auscultation. Heart: S1, S2. Regular. Systolic murmur. Abdomen: Soft, nontender. Extremities: No edema. Neurologic: Alert. No focality. More oriented today, not confused. Laboratory Data: Sodium 132, potassium 4, bicarb 25, BUN 39, creatinine 1.3, GFR of 38, calcium 8.8, phosphorus 4, magnesium 2.1, albumin 3.1. Corrected calcium is 9.6. Current Medications: The patient on include; 1.Ceftriaxone. 2.Lovenox. 3.Atorvastatin. 4. . 5.Normal saline 75 per hour. Assessment And Plan: 1.Acute kidney injury secondary to prerenal, on chronic kidney disease, continued to improve, curren tly plateaued. We will continue to monitor. Looked to me normal volume. I am going to go ahead and discontinue IV fluid. 2.Hyponatremia to depletional, recovered, resolved fluid. 3.Hypertension, controlled, optimal. Continue current treatment. 4.Urinary tract infection secondary to Escherichia coli, Enterococcus faecalis. The patient was started on ceftriaxone. Upon discharge, the patient can be on ampicillin. We will follow up with primary. LEONIE Voice ID: [id number] Report ID: [id number]
[2022-01-25] MEDS: ROTIGOTINE TOP SCH (16:14)
[2022-01-25] MEDS ORDERED: VANCOMYCIN 1 GM in NA CHLORIDE 0.9% 250 ML IVPB SCH (17:00)
[2022-01-25] MEDS: CEFEPIME 1 GM in NA CHLORIDE 0.9% 100 ML IV SCH (17:35)
--- NOTE | 2022-01-25 18:33 | P.PN ---
Date of Service: 01/25/22 Subjective: more awake/alert this morning improving does not recall last 2-3 days still with some confusion denies pain/dysuria ROS: 10 point ROS as noted above, otherwise negative Physical Exam General: confused, AOx1, calm HEENT: Mucous membr. moist/pink Respiratory: Clear to auscultation bilaterally, Normal air movement Cardiovascular: No edema, Regular rate/rhythm Gastrointestinal: soft, nontender, nondistended Neurological: moves all extremities, no focal defecits Problem List Hyponatremia, acute on chronic Fall Acute metabolic encephalopathy secondary to hyponatremia vs med withdrawal UTI Orthostatic hypotension Dehydration / Euvolemia h/o depression on SSRI h/o CAD/ s/p CABG most likely desmopressin induced hyponatremia, possibly further complicated by HCTZ / SSRI - all held on admission Initial acute encephalopathy resolved. She was back to her baseline on 01/22, however evening of 01/22 - 01/23 patient became more altered / agitated suspect due to withdrawal from SSRI/neupro patch. restarted 01/23 and now improving UA on 01/23 concern for UTI, rocephin started; given timing of improvement, encephalopathy felt due to held meds and not from uti culture growing e.coli and enterococcus, pt with penicillin allergy - options limited and started vanc & cefepime on 01/25; will need ~3-5 days Sodium level improving, Nephrology is following and assisting with management TSH within normal limits. Diet as tolerated. Seen by PT, patient noted to have orthostatic hypotension. now improved Orthostatic precautions. Continue PT. VTE: lovenox Code: full Dispo: from assisted living, will need IV antibiotics, ongoing PT, and monitoring. may be appropriate for rehab, anticipate dc ~1 day
[2022-01-25] MEDS: ATORVASTATIN 40 MG TAB PO SCH (20:18)
--- NOTE | 2022-01-25 20:58 | CON ---
History Of Present Illness: The patient is an 81-year-old female who was brought in with altered men kristine status and low sodium. Her urine culture is growing E coli and Enterococcus faecalis with some r esistant pattern. The patient is currently getting Rocephin. The patient is somewhat awake, but not completely alert. Most of the history was obtained through hospitalist and medical records. Past Medical History: Hypercholesterolemia, gastroesophageal reflux disease. Medications: Rocephin. See MAR for other medications. Allergies: AMOXIL. Social History: Nonsmoker, nondrinker. Family History: Noncontributory. Review of Systems: Unable to obtain at this time. Physical Examination: General: This is an 81-year-old female, lying in bed, not in any acute cardiopulmonary distress, shania ewhat confused. Vital Signs: Temperature 97, pulse 95, respirations 16, blood pressure 111/51. HEENT: Unremarkable. Neck: Supple. Lungs: Basal crackles. Heart: S1, S2. Regular. Abdomen: Soft, nontender. Bowel sounds present. Extremities: No edema. Laboratory Data: Shows sodium 132 from 09/12, potassium 4, chloride 99, bicarb 25, BUN 39, creatinin e 1.38, glucose is 97. Hematology shows WBC 10.2, hemoglobin 11.9, platelets 239. Micro shows urine cultures growing E coli and Enterococcus faecalis. Assessment And Plan: Altered mental status in an 81-year-old female, most likely secondary to hypona tremia and possible urinary tract infection and urosepsis, currently on Rocephin. We will recommend to change the patient to vancomycin and meropenem to give empiric coverage. Continue supportive care and monitor for any signs of infection. We will follow the patient closely. Thank you, Dr. See, for consult. NF/MODL Voice ID: [id number] Report ID: [id number]
[2022-01-25] MEDS ORDERED: VANCOMYCIN 1.5 GM in NA CHLORIDE 0.9% 500 ML IVPB SCH (21:00)
[2022-01-26 00:20] VITALS: BMI 23.3
[2022-01-26 01:37] VITALS: O2SAT 92
[2022-01-26 06:21] LABS: Albumin 2.7 g/dL (3.4-5.0); Magnesium 1.7 mg/dL (1.8-2.4); Phosphorus 2.7 mg/dL (2.5-4.9); Potassium 4.2 mmol/L (3.5-5.1)
--- NOTE | 2022-01-26 07:18 | P.PN ---
Date of Service: 01/26/22 Subjective: ROS: 10 point ROS as noted above, otherwise negative Physical Exam General: confused, AOx1, calm HEENT: Mucous membr. moist/pink Respiratory: Clear to auscultation bilaterally, Normal air movement Cardiovascular: No edema, Regular rate/rhythm Gastrointestinal: soft, nontender, nondistended Neurological: moves all extremities, no focal defecits Problem List Hyponatremia, acute on chronic Fall Acute metabolic encephalopathy secondary to hyponatremia vs med withdrawal UTI Orthostatic hypotension Dehydration / Euvolemia h/o depression on SSRI h/o CAD/ s/p CABG most likely desmopressin induced hyponatremia, possibly further complicated by HCTZ / SSRI - all held on admission Initial acute encephalopathy resolved. She was back to her baseline on 01/22, however evening of 01/22 - 01/23 patient became more altered / agitated suspect due to withdrawal from SSRI/neupro patch. restarted 01/23 and now improving UA on 01/23 concern for UTI, rocephin started; given timing of improvement, ence phalopathy felt due to held meds and not from uti culture growing e.coli and enterococcus, pt with penicillin allergy - options limited and started vanc & cefepime on 01/25; will need ~3-5 days Sodium level improving, Nephrology is following and assisting with management TSH within normal limits. Diet as tolerated. Seen by PT, patient noted to have orthostatic hypotension. now improved Orthostatic precautions. Continue PT. VTE: lovenox Code: full Dispo: from assisted living, will need IV antibiotics, ongoing PT, and monitoring. may be appropriate for rehab, anticipate dc ~1 day
[2022-01-26] MEDS ORDERED: MAGNESIUM SULFATE 1 gm IVPB 1 GM/100 ML BAG IV ONE (07:30)
[2022-01-26] MEDS: ENOXAPARIN 30 MG/0.3 ML SQ SCH (08:04)
[2022-01-26] MEDS: SOLIFENACIN SUCCIN 5 MG TAB PO SCH (08:04)
[2022-01-26] MEDS: PANTOPRAZOLE 40MG TABLET PO SCH (08:04)
[2022-01-26] MEDS: CEFEPIME 1 GM in NA CHLORIDE 0.9% 100 ML IV SCH (08:04)
[2022-01-26] MEDS: FOLBIC 1 TAB PO SCH (08:05)
[2022-01-26] MEDS: DESVENLAFAXINE SUCCINATE 50 MG ER TAB PO SCH (08:05)
[2022-01-26] MEDS: ENSURE ENLIVE 237 ML CAN PO SCH (08:06)
[2022-01-26] MEDS: GABAPENTIN 600 MG PO SCH (08:06)
--- NOTE | 2022-01-26 12:12 | P.CNS ---
Date of Consult: 01/26/22 Chief Complaint: Nausea and vomiting History of Present Illness: Patient is an 81 year old female with a PMH of urinary incontinence, and HTN who was brought to the ED from her assisted living facility secondary to N/V. UA positive for UTI. Urine culture polymicrobial growing e coli, enterococcus, and GBS. ID has been consulted to manage antibiotic regimen. Patient currently denies N/V/D. Allergies amoxicillin Allergy (Unverified 03/29/15 02:58) Unknown Home Medications: Amlodipine [Norvasc*] 10 mg PO DAILY 01/21/22 Atorvastatin Calcium [Lipitor] 40 mg PO DAILY 01/21/22 Desmopressin Acetate [Ddavp] 0.2 mg PO DAILY 01/21/22 Desvenlafaxine [Desvenlafaxine ER] 50 mg PO DAILY 01/21/22 Folic Acid/Vit B Complex and C [Folbee Plus Tablet] 5 mg PO DAILY 01/21/22 Gabapentin [Gralise] 600 mg PO DAILY 01/21/22 Lisinopril [Zestril] 40 mg PO BID 01/21/22 Meloxicam [Mobic*] 7.5 mg PO DAILY 01/21/22 Mirabegron [Myrbetriq] 25 mg PO DAILY 01/21/22 Omeprazole 20 mg PO DAILY 01/21/22 Rotigotine [Neupro] 6 mg TOP DAILY 01/21/22 Solifenacin [Vesicare*] 10 mg PO DAILY 01/21/22 Triamterene/Hydrochlorothiazid [Triamterene-Hctz 37.5-25 mg Tb] 37.5 mg PO DAILY 01/21/22 - Past Medical/Surgical History Diabetic: No -: Hypertension -: Restless leg syndrome -: History of syncope -: Coronary artery disease -: Depression -: Urge incontinence -: Osteoarthritis -: Sleep apnea -: Vitamin D deficiency -: Hypercholesterolemia -: CABG - Family History Mother History Unknown: Yes Medical History: Stroke - Social History Alcohol use: No CD- Drugs: No Caffeine use: Yes Place of Residence: Home Review of Systems 10-point ROS is otherwise unremarkable Physical Examination Temp Pulse Resp BP Pulse Ox 98.7 F 75 16 125/59 L 98 01/26/22 08:00 01/26/22 08:00 01/26/22 08:00 01/26/22 08:00 01/26/22 08:00 General: Alert, In no apparent distress HEENT: Atraumatic, Normocephalic Neck: JVD not distended Respiratory: Clear to auscultation bilaterally Cardiovascular: Regular rate/rhythm Gastrointestinal: Normal bowel sounds, Soft and benign, Non-distended Musculoskeletal: No clubbing, No swelling, No contractures Conclusions/Impression: Antibioitcs: cefepime: 01/24-current vancomycin: 01/25-current Assessment/Plan UTI -continue currently antibiotics -recommend 5 day course Plan of care discussed with Dr. Vee Thank you for consultation.
--- NOTE | 2022-01-26 13:31 | P.PN ---
Subjective Date of Service: 01/26/22 Chief Complaint: Nausea and vomiting Subjective: No new changes Physical Examination - Vital Signs Temperature: 98.1 F Blood Pressure: 151/69 Pulse: 75 Respirations: 16 Pulse Ox (%): 100 - Physical Exam General: In no apparent distress HEENT: Atraumatic, Normocephalic Neck: Supple Respiratory: Other (symmetric chest expansion) Cardiovascular: No rubs, No murmurs Gastrointestinal: Soft and benign, Non-distended Musculoskeletal: No clubbing Integumentary: No warmth Neurological: Normal speech, Normal tone Urinary: Other (no bladder distention) External genitalia: Deferred Rectal: Deferred Assessment And Plan - Plan 1. CODIE secondary to prerenal, on chronic kidney disease, improved. Encouraged liberal po fluid intake. 2. Hyponatremia to depletional, improved. [place] po fluid intake as above. Avoid thiazide permanently. Avoid NSAID. 3. Hypertension. BP rising. Resume amlodipine 10 mg po daily. Resume Lisinopril 40 mg po daily. Avoid thiazide. 4. Urinary tract infection secondary to Escherichia coli, Enterococcus. Abx per primary team. 5. HypoNa. Monitor/replete prn. 6. Dispo. Ok to dc to rehab.
[2022-01-26] MEDS: ROTIGOTINE TOP SCH (15:47)
--- NOTE | 2022-01-26 22:01 | P.DS ---
Admission Date: 01/20/22 Discharge Date: 01/26/22 Disposition: TRANSFER TO INPATIENT REHAB Reason for Admission: Nausea and vomiting Consultations: Nephrology Infectious Disease Procedures: Problem List Hyponatremia, acute on chronic Fall Acute metabolic encephalopathy secondary to hyponatremia vs med withdrawal UTI Orthostatic hypotension Dehydration / Euvolemia h/o depression on SSRI h/o CAD/ s/p CABG Brief History of Present Illness: 81yo F, PMH: urinary incontinence, HTN, brought to ED From assisted living facility due to nausea/vomiting. Per report, patient fell on buttocks yesterday. She was found to have no fractures and with severe hyponatremia of 111. Patient was confused and unable to give accurate history. She is on desmopressin for polyuria. She is admitted to the ICU for close monitoring and further management. Hospital Course: Patient was found to have severe hyponatremia. Suspected secondary to desmopressin and her other medications. These were discontinued on admission. Sodium improved with IV fluids and stopping desmopressin and her HCTZ She had initial improvement, but then became more confused and agitated. This was suspected to be secondary to discontinuation of her pristiq/neurpo patch and she was having some withdrawals. She was also evaluated for possible UTI, and UA was consistent with this p ossibility. Urine culture grew e coli, strep agalactiae, and enterrococcus. Patient has a penicillin allergy which limited antibiotic selection. ID was consulted, agreed with 5 days of IV vancomycin and cefepime. (started on 01/25) Blood pressure improved throughout hospitalization. Ok to restart lisinopril/norvasc on discharge. Recommend against NSAIDs, and using tylenol as needed for pain instead. NSAIDs can also contribute to low sodium. Patient was evaluated by PT and recommended inpatient rehab. She had improvement of her symptoms. Hospital course complicated by urinary retention on 01.24, required straight cath, she was able to void without issue on day of discharge. Vital Signs/Physical Exam: Temp Pulse Resp BP Pulse Ox 98.7 F 86 16 160/78 H 100 01/26/22 16:00 01/26/22 16:00 01/26/22 16:00 01/26/22 16:00 01/26/22 16:00 Physical Exam General: AAOx2, NAD, mild confusion HEENT: Mucous membr. moist/pink Respiratory: Clear to auscultation bilaterally, Normal air movement Cardiovascular: No edema, Regular rate/rhythm Gastrointestinal: soft, nontender, nondistended Neurological: moves all extremities, no focal defecits, generalized weakness Laboratory Data at Discharge: WBC 10.2 K/uL (4.3-10.9) D 01/25/22 05:50 Hgb 11.5 g/dL (12.0-15.0) L 01/25/22 05:50 Hct 33.5 % (36.0-45.0) L 01/25/22 05:50 Plt Count 239 K/uL (152-406) 01/25/22 05:50 PT 10.8 SECONDS (9.5-12.5) 01/20/22 14:45 INR 0.98 01/20/22 14:45 Sodium 135 mmol/L (136-145) L 01/26/22 05:42 Potassium 4.2 mmol/L (3.5-5.1) 01/26/22 05:42 BUN 23 mg/dL (7-18) H 01/26/22 05:42 Creatinine 0.92 mg/dL (0.55-1.3) 01/26/22 05:42 Glucose 102 mg/dL (74-106) 01/26/22 05:42 Uric Acid 6.3 mg/dL (2.6-6.0) H 01/24/22 04:26 Phosphorus 2.7 mg/dL (2.5-4.9) 01/26/22 05:42 Magnesium 1.7 mg/dL (1.8-2.4) L 01/26/22 05:42 Total Bilirubin 0.8 mg/dL (0.2-1.0) 01/20/22 14:45 AST 54 U/L (15-37) H 01/20/22 14:45 ALT 46 U/L (12-78) 01/20/22 14:45 Alkaline Phosphatase 82 U/L (45-117) 01/20/22 14:45 Triglycerides 40 mg/dL (<150) 01/21/22 04:35 Cholesterol 131 mg/dL (<200) 01/21/22 04:35 HDL Cholesterol 58 mg/dL (40-60) 01/21/22 04:35 Cholesterol/HDL Ratio 2.26 01/21/22 04:35 Home Medications: Amlodipine [Norvasc*] 10 mg PO DAILY 01/21/22 Atorvastatin Calcium [Lipitor] 40 mg PO DAILY 01/21/22 Desvenlafaxine [Desvenlafaxine ER] 50 mg PO DAILY 01/21/22 Folic Acid/Vit B Complex and C [Folbee Plus Tablet] 5 mg PO DAILY 01/21/22 Gabapentin [Gralise] 600 mg PO DAILY 01/21/22 Lisinopril [Zestril] 40 mg PO BID 01/21/22 Meloxicam [Mobic*] 7.5 mg PO DAILY 01/21/22 Mirabegron [Myrbetriq] 25 mg PO DAILY 01/21/22 Omeprazole 20 mg PO DAILY 01/21/22 Rotigotine [Neupro] 6 mg TOP DAILY 01/21/22 Solifenacin [Vesicare*] 10 mg PO DAILY 01/21/22 Followup: Unknown,U [Primary Care Provider] - Time spent managing pt's care (in minutes): 45
[2022-01-27 04:25] VITALS: BP 151/69; TEMP 98.1
== END 2022-01-26 18:40 | DRG 641 ==
LOC: ER 14:08 → ERHOLD 17:52 → 3RD-ICU 21:01 → 2ND 01-22 20:45
PROVIDERS: ADMIT Internal Medicine; ATTEND Internal Medicine
DX: E87.1 Hypo-osmolality and hyponatremia (principal); N39.0 Urinary tract infection, site not specified; N17.9 Acute kidney failure, unspecified; E86.0 Dehydration; T38.895A Adverse effect of other hormones and synthetic substitutes, initial encounter; T50.2X5A Adverse effect of carbonic-anhydrase inhibitors, benzothiadiazides and other diuretics, initial encounter; Y92.199 Unspecified place in other specified residential institution as the place of occurrence of the external cause; B96.20 Unspecified Escherichia coli [E. coli] as the cause of diseases classified elsewhere; B95.1 Streptococcus, group B, as the cause of diseases classified elsewhere; B95.2 Enterococcus as the cause of diseases classified elsewhere; R33.9 Retention of urine, unspecified; I12.9 Hypertensive chronic kidney disease with stage 1 through stage 4 chronic kidney disease, or unspecified chronic kidney disease; N18.2 Chronic kidney disease, stage 2 (mild); I25.10 Atherosclerotic heart disease of native coronary artery without angina pectoris; G25.81 Restless legs syndrome; Z95.1 Presence of aortocoronary bypass graft; Z88.0 Allergy status to penicillin; I95.1 Orthostatic hypotension; F32.A Depression, unspecified; E78.00 Pure hypercholesterolemia, unspecified; Z20.822 Contact with and (suspected) exposure to COVID-19
CPT/HCPCS: 36415; 70450; 71045; 72170; 76770; 80048; 80061; 80069; 80076; 81003; 81015; 82533; 82550; 82570; 83735; 83880; 83930; 83935; 84100; 84132; 84145; 84156; 84300; 84439; 84443; 84484; 84550; 85025; 85027; 85610; 87040; 87077; 87086; 87088; 87186; 93005; 96361; 96374; 97110; 97116; 97161; 97530; 99285; J0692; J1650; J2405; J3370; J3475; J7030; J7050; J8597; U0003

== ENCOUNTER 2022-01-26 15:09 | Inpatient (IN) | payer OTHER, MEDICARE ==
--- NOTE | 2022-01-26 17:39 | R.PREADM ---
PRE-ADMISSION SCREENING FORM SCREENING DATE AND TIME 01/26/2022 15:32 (CDT) ANTICIPATED REHAB ADMISSION DATE 01/26/2022 REFERRING FACILITY [facility] REFERRAL DATE AND TIME 01/26/2022 15:32 (CDT) REFERRAL ROOM# 225 ACUTE ADMIT DATE 01/20/2022 Previous Rehabilitation(s): No. 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 Ilir Rojas M.D. MR# [id number] NAME HOSEA RIVERA ADDRESS [address] [place] [address] PHONE [facility] [id number] DATE OF 1940 AGE 81 SSN# [id number] GENDER female MARITAL STATUS PREF. LANGUAGE (IF NON-BAHAMIAN) Syriac ADMIT FROM 02 - [facility] PRE-HOSPITAL LIVING SETTING 01 - Home (private home/apt. board/care, assisted living, [facility]cc, transitional living) HOME TYPE AND DETAILS Type of home: single family house # of levels in the residence: 1 # of steps within the residence: 0 # of steps to enter the residence: 0 PRE-HOSPITAL LIVING WITH Family/Relatives FAMILY SUPPORT Yes PRIMARY FAMILY CONTACT NAME ROSIBEL RIVERA PRIMARY FAMILY CONTACT PHONE PRIMARY FAMILY CONTACT RELATIONSHIP Spouse PHONE PRIMARY FAMILY CONTACT ON ADM.? no IS PRIMARY FAMILY CONTACT AUTH. REP.? no 1ST EMERGENCY CONTACT ROSIBEL RIVERA 1ST CONTACT PHONE 1ST CONTACT RELATIONSHIP Spouse PHONE 1ST CONTACT ON ADM. no IS 1ST CONTACT AUTH. REP.? no PHONE 2ND CONTACT ON ADM.? no PATIENT EMPLOYMENT STATUS Retired (for age) PATIENT EMPLOYER No Employer PAYOR INFORMATION: 1ST PAYOR NAME Medicare 1ST PAYOR PHONE 1ST PAYOR INJURY/ILLNESS DUE TO ACCIDENT? No ANOTHER [employer] RESPONSIBLE? No PRIMARY REHAB/ACUTE DIAGNOSIS: Multi-Organism Urinary Tract Infection with Urosepsis Escherichia Coli Enterococcus Faecalis Streptococcus Agalactiae Group B ONSET DATE 01/21/2022 REHAB IMPAIRMENT CATEGORY (GARRISON): 20 Miscellaneous (Misc) does NOT meet 60% rule PRIMARY DIAGNOSIS-RELATED SURGERIES: N/A INTERVENTIONS: - UTI Patient will need frequent adjustments in treatment and dose monitoring as per physician recommendati ons. Maxipime in sodium Chloride @ 200 mls/hr IV Daily Bag volume 100 mls over 30mins Vancomycin 1 gm in sodium chloride @ 250 mls/hr IVPB Q36H Bag volume: 250mls over 1 hour Monitoring Urinary Output and managing symptoms - HYPERTENSION Blood pressure will be regularly assessed and medications administered as per physician recommendatio ns. - Depression Monitor patient for depression and treat as neccesary Provide regular exercise, which is a proponent to fight depression - CAD Administer Medication as indicated by physician. Vitals will be regularly monitored and symptoms managed. - GERD Monitor symptoms and provide medication as indicated by physician - Hyponatremia Monitor sodium levels and administer IV fluids as inidicated Monitor signs and symptoms and treat as indicated by physician. RISK FOR COMPLICATIONS: - Weakness Regular therapeutic activity and exercise Strengthening exercises to be performed - Skin Breakdown Nursing will assess skin daily using assessment tool and will place on Skin Breakdown Precautions as Indicated per protocol - Nausea Monitoring and management of symptoms via medications as indicated by physician - Falls Educated pt on fall prevention strategies to reduce/eliminate fall risk Patient will be evaluated for Fall Precautions and will be placed on Fall Precautions as indicated pe r protocol. pt is high risk for falls and has experienced falls at home. - DVT Administer anti-coagulants as indicated by physician and monitor for effectiveness. Mobility training and regular exercise - Sepsis pt has has been receiving treatment for current multi-organism UTI. This will require medical monitor ing and medication to ensure infection does not turn systemic. SUMMARY OF ACUTE HOSPITALIZATION: Pt. is a 81 yo Right-handed female. On 01/21/2022 she was admitted to [facility] with diagnosis Multi-Organism Urinary Tract Infection with Urosepsis. Her impairment category is Medically Complex Conditions 17 - Infections (17.1). Pre-morbidly, Pt. was independent/mod-I in Locomotion, Social Cognition, Safety Awareness, Balance, a nd Transfers Control; and she had good Transfers Control, Sphincter Control, Self-Care, Endurance, an d Communication. Currently, she has deficits of Locomotion, Social Cognition, Transfers Control, Balance, Sphincter Co ntrol, Safety Awareness, Self-Care, Communication, and Endurance. Pt. is now referred to [facility] for acute in-patient rehabilitation in order to maximize patient's functional independence in activities of daily living, strength, ROM, and mobi lity. Patient has realistic goal of being discharged at assistance level 7-Ind to reside at Home with Fami ly/Relatives. PAST MEDICAL HISTORY HYPERTENSION RESTLESS LEG SYNDROME HISTORY OF SYNCOPE CORONARY ARTERY DISEASE DEPRESSION URGE INCONTINENCE OSTEOARTHRITIS Osteopenia SLEEP APNEA VITAMIN D DEFICIENCY HYPERCHOLESTEROLEMIA GERD Hypo-osmolality and hyponatremia (E87.1) PAST SURGICAL HISTORY: CABG MEDICATION ALLERGIES: No Known Drug Allergies (NKDA) ENVIRONMENTAL ALLERGIES: - Substance Allergies None Known - Other Allergies None Known CODE STATUS: Full code WEIGHT/HEIGHT/BMI: WEIGHT 132 lbs HEIGHT 5' 5" BMI 22 DIET: - Diet Type Regular - Diet - Solid Texture Regular - Diet - Liquid Texture Regular - Tube Feed N/A SKIN DIAGRAM: on Abdomen; extent - small; stage - NS(Not Stageable). Treatment - . REVIEW OF SYSTEMS: - Gen Alert and awake Lying in bed No apparent distress Oriented to: person, time, and place - Vital Signs Temperature: 98.1 F SBP/DBP: 151/69 Pulse:75 Resp: 16 Vital signs stable, afebrile - CVS RRR VITAL SIGNS Temperature: 98.1 F SBP/DBP: 151/69 Pulse: 75 Resp: 16 Vital signs stable, afebrile MEDICATIONS/TREATMENT: Other- See attached MAR (Medication Administration Record). CURRENT SPHINCTER CONTROL: Pre-hospital bladder status: unspecified # of bladder accidents in the last 7 days prior to screenin Pre-hospital bowel status: unspecified # of bowel accidents in the last 7 days prior to screenin Last Bowel Movement Date: 01/26/2022 CURRENT LOCOMOTION STATUS: distance walked 270 feet with rolling walker DETAILED CURRENT FUNCTIONAL STATUS: - Bladder accident frequency: 7-Ind - No accidents in the past 7 days - Bowel accident frequency: 7-Ind - No accidents in the past 7 days - Walking score based on distance walked: 0(N/A) score based on distance walked: 3(>=150ft) - Wheelchair score based on distance traveled: 0(N/A) QI SCORES: - Self-Care A. Eating 03-Partial/moderate assistance B. Oral hygiene 03-Partial/moderate assistance C. Toileting hygiene 03-Partial/moderate assistance E. Shower/bathe self 03-Partial/moderate assistance F. Upper body dressing 03-Partial/moderate assistance G. Lower body dressing 03-Partial/moderate assistance H. Putting on/taking off footwear 03-Partial/moderate assistance - Mobility A. Roll left and right 03-Partial/moderate assistance B. Sit to lying 03-Partial/moderate assistance C. Lying to sitting on side of bed 03-Partial/moderate assistance D. Sit to stand 02-Substantial/maximal assistance E. Chair/[id number] transfer 03-Partial/moderate assistance F. Toilet transfer 03-Partial/moderate assistance G. Car transfer 88-Not attempted due to medical condition or safety concerns I. Walk 10 feet 03-Partial/moderate assistance J. Walk 50 feet with two turns 03-Partial/moderate assistance K. Walk 150 feet 03-Partial/moderate assistance L. Walking 10 feet on uneven surfaces 88-Not attempted due to medical condition or safety concerns M. 1 step (curb) 88-Not attempted due to medical condition or safety concerns N. 4 steps 88-Not attempted due to medical condition or safety concerns O. 12 steps 88-Not attempted due to medical condition or safety concerns P. Picking up object 88-Not attempted due to medical condition or safety concerns R. Wheel 50 feet with two turns 88-Not attempted due to medical condition or safety concerns S. Wheel 150 feet 88-Not attempted due to medical condition or safety concerns - Bladder and Bowel Bladder continence Bowel continence - Endurance Good - Balance Good - Safety Awareness Good CURRENT FUNC. DEFICITS: Self-Care and Mobility CURRENT / PREVIOUS ASSISTIVE DEVICES: Rolling Walker HISTORY OF FALLS. HAS THE PATIENT HAD TWO OR MORE FALLS IN THE PAST YEAR OR ANY FALL WITH INJURY IN T HE PAST YEAR?: Yes PRIOR SURGERY. DID THE PATIENT HAVE MAJOR SURGERY DURING THE 100 DAYS PRIOR TO ADMISSION?: No THERAPY NOTES FROM ACUTE CARE: Attached. SPECIAL NEEDS: - Safety Concerns Skin breakdown precautions needed due to skin breakdown risk PATIENT NEEDS ACTIVE AND ONGOING THERAPEUTIC INTERVENTION OF MULTIPLE THERAPY DISCIPLINES, INCLUDING: - Dietary and Nutrition Adequate Nutrition. Nutritional Education. Nutritional Supplements. Evaluate and Treat. - Occupational Therapy Cognitive Retraining. Patient needs Occupational Therapy for a daily minimum of 1.5 hours at least 5 out of 7 days, to improve Activities of Daily Living, including: Eating, Grooming, Bathing, Dressing, Toileting, Toilet Transfers, Community Reintegration, Higher functional activities, Adaptive Equipme nt, Splinting, Household Tasks, and Other activities as determined. Visual Perceptual Training. Evalu ate and Treat. ADL Training. Household Tasks. Patient/Family Education. Safety Awareness. - Speech Therapy Cognitive Training. Expressive Language Skills. Memory Strategies. Patient needs Speech Therapy for a daily minimum of 1.5 hours at least 5 out of 7 days, to improve: Swallowing, Cognition, Language Ski lls, and Compensatory Strategies. Receptive Language Skills. Speech Intelligibility Training. Evaluat e and Treat. - Physical Therapy Patient needs Physical Therapy for a daily minimum of 1.5 hours at least 5 out of 7 days, to improve: Mobility, Strengthening, Transfers, Stretching, ROM, Endurance, Ability to manage stairs, Gait, and Balance. Balance Training. Evaluate and Treat. Gait Training. LE Strengthening. Transfer Training. Sa fety Awareness. PATIENT NEEDS CLOSE MEDICAL SUPERVISION BY A REHABILITATION PHYSICIAN FOR: Coordination of Treatment Team Wound Care Medical and Co-Morbidity Management Pain Management DVT Management Bowel and Bladder Management PATIENT REQUIRES 24X7 REHAB NURSING FOR MEDICAL AND FUNCTIONAL MGT. OF THE FOLLOWING DEFICITS: Disease Management Medication Management Patient requires 24x7 Rehabilitation Nursing for: Pain Issues, Identifying and preventing risk factor s, Monitoring and reporting current medical conditions, Assisting with ambulation and transfer, [place] ting with all ADL-s, Teaching patients about disease process and medications, Family teaching, Provid ing safe environment, Bowel and Bladder Issues, Skin Integrity, and Medication Management Patient/Family Education Providing Safe Environment Skin Integrity PATIENT REQUIRES INTENSIVE, COORDINATED INTERDISCIPLINARY APPROACH TO REHAB: Arranging Home Equipment/Services Discharge Planning Family Intervention/Training Patient needs Dietary and Nutrition Services for: Adequate Nutrition, Nutritional Supplements, and Nu tritional Education Patient needs Copyright Expert and/or Case Management for: Discharge Planning, Arranging Home Equipmen t or Services, and Family Interventions Copyright Expert/Case Management PATIENT REHAB POTENTIAL: Yoan RIVERA is able and expected to receive 3 hours of individualized therapy daily on at least 5 of kelli ry 7 days Yoan RIVERA's prognosis for significant practical improvement within a reasonable period of time appears Good Expected level of measurable improvement will be of a practical value to Yoan RIVERA's functional capaci ty or adaptations to impairments Has a viable Discharge Plan Medically appropriate; condition is sufficiently stable to participate in intensive rehab program DISCHARGE PLAN: - Estimated Length of Stay (days) 13. - Consensus on plan Discharge plan has been discussed with primary caregiver. Patient/Family is in agreement with the danika n. Primary caregiver is in agreement with the plan. - Patient/Family Goals Return home independently. - Planned Living Setting Upon Discharge Home, to live with Family/Relatives. Transitional Living. RECOMMENDED CARE LEVEL: IRF RECOMMENDATION DETAILS: Recommended Admission to Comprehensive Rehabilitation Program to Increase Functional [place] SCREENER'S COMPLETENESS CONFIRMATION: - Screening Confirmation The patient data collection on this preadmission screening form is finished PHYSICIANS REVIEW AND ADMISSION DETERMINATION Admit - Based on my review of the Pre-Admission Screening results, in my medical judgment and experie nce, I concur with the findings and recommend admission to [facility], as this patient requires an IRF level of care. SIGNATURE PANEL: Outreach And Education Social Worker - [electronically] signed by Kathy Trent on 01/26/2022 at 16:28 (CDT) Outreach And Education Social Worker - [electronically] signed by Darren Kingston PT on 01/26/2022 at 17:35 (CDT) Physician Reviewer - [electronically] signed by Dr. Ilir Rojas M.D. on 01/26/2022 at 17:38 (CDT )
--- OUTSIDE RECORDS SUMMARY | 2022-01-26 18:52 | XMS REPORT | Continuity of Care Document ---
:1940 Author Organization [facility] Address [address] [place] [address] Care Team Providers Name Role Phone ALO [...] Clinicians Facility Department ID 2022-01-01 2022-01-01 Outpatient [facility] [id number] [place] 00:00:00 00:00:00 DENISE [address] 2021-11-21 2021-11-21 [facility] [id number] [place] 00:00:00 00:00:00 DENISE [address] 2021-10-25 2021-10-25 [facility] [id number] [place] 00:00:00 00:00:00 DENISE [address] 2021-09-06 2021-09-06 [facility] [id number] [place] 00:00:00 00:00:00 LISA [address] 2021-08-17 2021-08-17 [facility] [id number] [place] 00:00:00 00:00:00 LISA [address] 2021-08-14 2021-08-14 [facility] [id number] [place] 00:00:00 00:00:00 LISA [address] 2021-08-11 2021-08-11 [facility] [id number] [place] 00:00:00 00:00:00 LISA [address] 2021-08-09 2021-08-09 Outpatient WEINER, [facility] [id number] [place] 00:00:00 00:00:00 LISA [address] 2021-08-02 2021-08-02 Outpatient WEINER, [facility] [id number] [place] 00:00:00 00:00:00 LISA [address] 2021-07-31 2021-07-31 Outpatient WEINER, [facility] [id number] [place] 00:00:00 00:00:00 LISA [address] 2021-07-11 2021-07-11 Outpatient WEINER, [facility] [id number] [place] 00:00:00 00:00:00 LISA [address] 2021-07-06 2021-07-06 Outpatient WEINER, [facility] [id number] [place] 00:00:00 00:00:00 LISA [address] 2021-07-06 2021-07-06 Outpatient WEINER, [facility] [id number] [place] 00:00:00 00:00:00 LISA [address] 2021-07-04 2021-07-04 Outpatient WEINER, [facility] [id number] [place] 00:00:00 00:00:00 LISA [address] 2021-06-29 2021-06-29 Outpatient ALO, [facility] [id number] [place] 00:00:00 00:00:00 DENISE [address] 2021-05-24 2021-05-24 Outpatient [facility] [id number] [place] 00:00:00 00:00:[address] 2020-12-28 2020-12-28 Outpatient ALO, [facility] [id number] [place] 00:00:00 00:00:00 DENISE [address] 2020-09-09 2020-09-09 Outpatient SAHU, DIONNE [facility] [id number] [place] 00:00:00 00:00:[address] 2020-06-29 2020-06-29 Outpatient LAO, [facility] [id number] [place] 00:00:00 00:00:00 DENISE [address] 2020-06-29 2020-06-29 Outpatient ALO [facility] [id number] [place] 00:00:00 00:00:00 DENISE [address] 2019-12-15 2019-12-15 Outpatient ALO [facility] [id number] [place] 00:00:00 00:00:00 DENISE [address] 2019-11-13 2019-11-13 Outpatient ANDRES [facility] [id number] [place] 00:00:00 00:00:00 WILLEM [address] 2019-11-13 2019-11-13 Outpatient ANDRES [facility] [id number] [place] 00:00:00 00:00:00 WILLEM [address] 2019-08-20 2019-08-20 Outpatient DIONNE SAHU [facility] [id number] [place] 00:00:00 00:00:[address] 2019-08-20 2019-08-20 Outpatient DIONNE SAHU [facility] [id number] [place] 00:00:00 00:00:[address] 2019-06-11 2019-06-11 Outpatient ALO [facility] [id number] [place] 00:00:00 00:00:00 DENISE [address] Results This patient has no known results.
[2022-01-26] MEDS: ATORVASTATIN 40 MG TAB PO SCH (21:52)
[2022-01-26] MEDS: GABAPENTIN 300 MG CAP PO SCH (21:53)
[2022-01-26] MEDS: lisinopriL 20 MG TAB PO SCH (21:53)
[2022-01-27 05:15] VITALS: BMI 28.6
[2022-01-27 05:54] LABS: Absolute Lymphocytes (CBC) 2.3 K/uL (0.7-4.9); Hematocrit 29.7 % (36.0-45.0); MPV 7.5 fL (7.6-11.3); RBC Red Blood Cell Count 3.28 M/uL (3.86-4.86)
[2022-01-27] MEDS: PANTOPRAZOLE 40MG TABLET PO SCH (05:55)
[2022-01-27 06:05] LABS: Urine Appearance Clear (Clear); Urine Bilirubin Negative (Negative); Urine Blood Negative (Negative); Urine Color Yellow (Yellow); Urine Glucose Negative (Negative); Urine Protein Negative (Negative); Urine Urobilinogen 0.2 mg/dL (0.2-1.0); Urine pH 5.5 (5.0-7.0)
[2022-01-27 06:08] LABS: Urine Microscopic Reflex ORDER UMIC
[2022-01-27 06:18] LABS: Albumin 2.8 g/dL (3.4-5.0); Potassium 4.1 mmol/L (3.5-5.1); Prealbumin 10.1 mg/dL (20-40)
[2022-01-27 06:26] LABS: Urine Bacteria 20-50 /HPF (<20); Urine Mucus 2+ /HPF (NONE SEEN); Urine RBC <5 /HPF (NONE SEEN)
[2022-01-27] MEDS: APIXABAN 2.5 MG TABLET PO SCH ×2 (07:22→19:27)
[2022-01-27] MEDS: NEUPRO 6 MG TOP SCH ×2 (08:00→19:50)
[2022-01-27] MEDS: lisinopriL 20 MG TAB PO SCH ×3 (08:00→19:27)
[2022-01-27] MEDS ORDERED: FOLBIC 1 TAB PO SCH (08:00)
[2022-01-27] MEDS: CRANBERRY FRUIT EXTRACT 400 MG CAP PO SCH ×2 (09:11→19:27)
[2022-01-27] MEDS: SOLIFENACIN SUCCIN 5 MG TAB PO SCH (09:12)
[2022-01-27] MEDS: AMLODIPINE 10 MG TAB PO SCH (09:13)
[2022-01-27] MEDS: DESVENLAFAXINE SUCCINATE 50 MG ER TAB PO SCH (10:32)
[2022-01-27] MEDS: MELOXICAM 7.5 MG TAB PO SCH (10:32)
[2022-01-27] MEDS: GABAPENTIN 300 MG CAP PO SCH (19:27)
[2022-01-27] MEDS: ATORVASTATIN 40 MG TAB PO SCH (19:27)
--- NOTE | 2022-01-27 21:54 | R.HP ---
HISTORY AND PHYSICAL FACILITY: [facility] ENCOUNTER DATE AND TIME: 01/26/2022 19:46 (CDT) MR#: [id number] NAME HOSEA RIVERA ADDRESS: [address] [place] [address] CITY: [place] [address]IP [phone] PHONE: DATE OF : 1940 AGE: 81 SSN# [id number] GENDER: Female MARITAL STATUS PRE-HOSPITAL LIVING SETTING 01 - Home (private home/apt. board/care, assisted living, long-term, transitional living) PRE-HOSPITAL LIVING WITH Family/Relatives ENCOUNTER PHYSICIAN: Dr. Ilir Rojas M.D. REFERRING DOCTOR: MIRIAM JOHNSTON MD DATE OF ADMISSION: 01/26/2022 18:49 (CDT) REFERRING FACILITY [facility] HOME TYPE AND DETAILS: Type of home: single family house # of levels in the residence: 1 # of steps within the residence: 0 # of steps to enter the residence: 0 ONSET DATE: 01/21/2022 PRIMARY DIAGNOSIS-RELATED SURGERIES: N/A HISTORY OF PRESENT ILLNESS (HPI): Pt. is a 81 yo Right-handed female. On 01/21/2022 she was admitted to [facility] with diagnosis Multi-Organism Urinary Tract Infection with Urosepsis. Her impairment category is Medically Complex Conditions 17 - Infections (17.1). Pre-morbidly, Pt. was independent/mod-I in Locomotion, Social Cognition, Safety Awareness, Balance, a nd Transfers Control; and she had good Transfers Control, Sphincter Control, Self-Care, Endurance, an d Communication. Currently, she has deficits of Locomotion, Social Cognition, Transfers Control, Balance, Sphincter Co ntrol, Safety Awareness, Self-Care, Communication, and Endurance. Pt. is now referred to [facility] for acute in-patient rehabilitation in order to maximize patient's functional independence in activities of daily living, strength, ROM, and mobi lity. Patient has realistic goal of being discharged at assistance level 7-Ind to reside at Home with Fami ly/Relatives. MEDICATION ALLERGIES: No Known Drug Allergies (NKDA) ENVIRONMENTAL ALLERGIES: - Substance Allergies None Known - Other Allergies None Known PAST MEDICAL HISTORY: HYPERTENSION RESTLESS LEG SYNDROME HISTORY OF SYNCOPE CORONARY ARTERY DISEASE DEPRESSION URGE INCONTINENCE OSTEOARTHRITIS Osteopenia SLEEP APNEA VITAMIN D DEFICIENCY HYPERCHOLESTEROLEMIA GERD Hypo-osmolality and hyponatremia (E87.1) PAST SURGICAL HISTORY: CABG SOCIAL HISTORY: - Home Living Family/Relatives REVIEW OF SYSTEMS: - Gen No Chills Fatigue No Fever - Eyes No Double Vision No itchiness - ENMT No Difficulty Swallowing - CVS No Chest Discomfort No Chest Pain Fatigue No Weight Gain - Resp No Cough No Shortness of Breath - GI Continent No Abdominal Pain No Constipation No Diarrhea - Continent No Kidney Pain No Painful Urination No Urinary Urgency - MSK No Joint Pain Muscle Cramps Stiffness - Skin No Itching No Rash No Suspicious Lesions - Neuro Coordination Difficulty Difficulty with Concentration No Memory Loss No Seizures Weakness - Psych No Anxiety No Depression No HIV Exposure No Persistent Infections No Seasonal Allergies - Endo No Cold/Heat Intolerance No Excessive Hunger No Excessive Thirst No Excessive Urination PHYSICAL EXAM - Gen Alert and awake Lying in bed No apparent distress Oriented to: person, time, and place - Skin No breakdown Normacephalic - Eyes No abnormalities - ENMT No abnormalities - Neck No abnormalities - CVS RRR - Chest No abnormalities - Resp No wheezing - Abd Soft - GI Non distended Deferred - No abnormalities - Ext No significant edema - MSK 4/5 weakness in both lower extremities. - Neuro No focal deficits - Psych No abnormalities VITAL SIGNS Temperature: 98.1 F SBP/DBP: 151/69 Pulse: 72 Resp: 16 NURSING: - Shower allowing shower ACTIVITIES OOB only with supervision QI SCORES: - Self-Care A. Eating 03-Partial/moderate assistance B. Oral hygiene 03-Partial/moderate assistance C. Toileting hygiene 03-Partial/moderate assistance E. Shower/bathe self 03-Partial/moderate assistance F. Upper body dressing 03-Partial/moderate assistance G. Lower body dressing 03-Partial/moderate assistance H. Putting on/taking off footwear 03-Partial/moderate assistance - Mobility A. Roll left and right 03-Partial/moderate assistance B. Sit to lying 03-Partial/moderate assistance C. Lying to sitting on side of bed 03-Partial/moderate assistance D. Sit to stand 02-Substantial/maximal assistance E. Chair/qtw-ul-yhirz transfer 03-Partial/moderate assistance F. Toilet transfer 03-Partial/moderate assistance G. Car transfer 88-Not attempted due to medical condition or safety concerns I. Walk 10 feet 03-Partial/moderate assistance J. Walk 50 feet with two turns 03-Partial/moderate assistance K. Walk 150 feet 03-Partial/moderate assistance L. Walking 10 feet on uneven surfaces 88-Not attempted due to medical condition or safety concerns M. 1 step (curb) 88-Not attempted due to medical condition or safety concerns N. 4 steps 88-Not attempted due to medical condition or safety concerns O. 12 steps 88-Not attempted due to medical condition or safety concerns P. Picking up object 88-Not attempted due to medical condition or safety concerns R. Wheel 50 feet with two turns 88-Not attempted due to medical condition or safety concerns S. Wheel 150 feet 88-Not attempted due to medical condition or safety concerns - Bladder and Bowel Bladder continence Bowel continence - Endurance Good - Balance Good - Safety Awareness Good CURRENT FUNC. DEFICITS: Self-Care and Mobility MEDICATIONS: - Other See attached MAR (Medication Administration Record) ASSESSMENT: Pt. is a 81 yo Right-handed female.On 01/21/2022 she was admitted to [facility] with mara gnosis Multi-Organism Urinary Tract Infection with Urosepsis.Her impairment category is Medically Com plex Conditions 17 - Infections (17.1).Pre-morbidly, Pt. was independent/mod-I in Locomotion, Social Cognition, Safety Awareness, Balance, and Transfers Control; and she had good Transfers Control, Sph incter Control, Self-Care, Endurance, and Communication.Currently, she has deficits of Locomotion, So cial Cognition, Transfers Control, Balance, Sphincter Control, Safety Awareness, Self-Care, Communica tion, and Endurance.Pt. is now referred to [facility] for acute in-patient feng abilitation in order to maximize patient's functional independence in activities of daily living, str ength, ROM, and mobility.- Rehab Goal Patient has realistic goal of being discharged at assistance level 7-Ind to reside at Home with Fami ly/Relatives. - Physical Therapy Inability to transfer - to improve, our physical therapists will perform initial evaluation of pt's s tatus upon admission and devise an individualized program for Bed mobility Need for home safety evaluation - to improve, our physical therapists will perform initial evaluation of pt's status upon admission and devise an individualized program for Home Evaluation Need in caregiver upon discharge - to improve, our physical therapists will perform initial evaluatio n of pt's status upon admission and devise an individualized program for Caregiver Training New precaution - to improve, our physical therapists will perform initial evaluation of pt's status u hernán admission and devise an individualized program for Patient precaution education Edema - to improve, our physical therapists will perform initial evaluation of pt's status upon admi ssion and devise an individualized program for Elevation Training, and Lymphedema Therapy Poor balance - to improve, our physical therapists will perform initial evaluation of pt's status upo n admission and devise an individualized program for Balance Training Poor endurance - to improve, our physical therapists will perform initial evaluation of pt's status u hernán admission and devise an individualized program for Endurance Training Achieving independence - to improve, our physical therapists will perform initial evaluation of pt's status upon admission and devise an individualized program for Community Reintegration Activities - Occupational Therapy ADL deficits - to improve, our occupation therapists will perform initial evaluation of pt's status u hernán admission and devise an individualized program for Bathing, Bed mobility, Community Reintegration , Cooking, Dressing, Eating, Fine Motor Skills, Grooming, Homemaking, Kitchen Mobility, Laundry, Brenda ent Education, Safety Awareness, Splinting - Positioning, Transfers(Toilet, Tub, Shower), and Wheel C hair Management Cognitive deficits - to improve, our occupation therapists will perform initial evaluation of pt's st atus upon admission and devise an individualized program for Cognition - orientation Need for ocular care aide - to improve, our occupation therapists will perform initial evaluation of pt's s tatus upon admission and devise an individualized program for Caregiver Training MEDICAL PLAN: - Diet Type Start Regular - Diet - Liquid Texture Start Regular - Tube Feed Start N/A - Other See attached MAR (Medication Administration Record) - Diet - Solid Texture Regular - Shower shower DISCHARGE PLAN: - Estimated Length of Stay (days) 13. - Consensus on plan Discharge plan has been discussed with primary caregiver. Patient/Family is in agreement with the danika n. Primary caregiver is in agreement with the plan. - Patient/Family Goals Return home independently. - Planned Living Setting Upon Discharge Home, to live with Family/Relatives. Transitional Living. SIGNATURE PANEL: (CDT)
--- NOTE | 2022-01-27 21:56 | PAPE ---
POST ADMISSION PHYSICIAN EVALUATION PATIENT: [facility] MR# [id number] REFERRING DOCTOR MIRIAM JOHNSTON MD EVALUATION DATE AND TIME 01/27/2022 21:54 (CDT) NAME HOSEA RIVERA DATE OF 1940 AGE 81 PHONE N# [id number] GENDER female EVALUATING PHYSICIAN Dr. Ilir Rojas M.D. ADMISSION DIAGNOSIS: Multi-Organism Urinary Tract Infection with Urosepsis Escherichia Coli Enterococcus Faecalis Streptococcus Agalactiae Group B ONSET DATE 01/21/2022 POST-ADMISSION FUNCTIONAL/MEDICAL STATUS: - Bladder Same accident frequency: 7-Ind - No accidents in the past 7 days - Bowel Same accident frequency: 7-Ind - No accidents in the past 7 days - Walking Same score based on distance walked: 0(N/A) Same score based on distance walked: 3(>=150ft) - Wheelchair Same score based on distance traveled: 0(N/A) STATUS CHANGE EVALUATION: No change in Functional or Medical Status is identified compared with Pre-Admission screening. PATIENT NEEDS CLOSE MEDICAL SUPERVISION BY A REHABILITATION PHYSICIAN FOR: Coordination of Treatment Team Wound Care Medical and Co-Morbidity Management Pain Management DVT Management Bowel and Bladder Management PATIENT REQUIRES 24X7 REHAB NURSING FOR MEDICAL AND FUNCTIONAL MGT. OF THE FOLLOWING DEFICITS: Disease Management Medication Management Patient requires 24x7 Rehabilitation Nursing for: Pain Issues, Identifying and preventing risk factor s, Monitoring and reporting current medical conditions, Assisting with ambulation and transfer, [place] ting with all ADL-s, Teaching patients about disease process and medications, Family teaching, Provid ing safe environment, Bowel and Bladder Issues, Skin Integrity, and Medication Management Patient/Family Education Providing Safe Environment Skin Integrity PATIENT REQUIRES INTENSIVE, COORDINATED INTERDISCIPLINARY APPROACH TO REHAB: Arranging Home Equipment/Services Discharge Planning Family Intervention/Training Patient needs Dietary and Nutrition Services for: Adequate Nutrition, Nutritional Supplements, and Nu tritional Education Patient needs Ceramic Design Engineer and/or Case Management for: Discharge Planning, Arranging Home Equipmen t or Services, and Family Interventions Ceramic Design Engineer/Case Management LIST OF IDENTIFIED AND POTENTIAL PROBLEMS: Alteration in leisure activities Bladder, Incontinence Bowel, Incontinence Infection, Actual or Potential Mobility Impaired Pain, Alteration in Comfort Self Care Deficit Skin Integrity, Actual or Potential Urinary Tract Infection (UTI), Actual or Potential RISK FOR COMPLICATIONS - Weakness Regular therapeutic activity and exercise. Strengthening exercises to be performed. - Skin Breakdown Nursing will assess skin daily using assessment tool and will place on Skin Breakdown Precautions as Indicated per protocol. - Nausea Monitoring and management of symptoms via medications as indicated by physician. - Falls Educated pt on fall prevention strategies to reduce/eliminate fall risk. Patient will be evaluated fo r Fall Precautions and will be placed on Fall Precautions as indicated per protocol. pt is high risk for falls and has experienced falls at home. - DVT Administer anti-coagulants as indicated by physician and monitor for effectiveness. Mobility training and regular exercise. - Sepsis pt has has been receiving treatment for current multi-organism UTI. This will require medical monitor ing and medication to ensure infection does not turn systemic. INTERVENTIONS - UTI Patient will need frequent adjustments in treatment and dose monitoring as per physician recommendati ons. Maxipime in sodium Chloride @ 200 mls/hr IV Daily Bag volume 100 mls over 30mins. Vancomycin 1 g m in sodium chloride @ 250 mls/hr IVPB Q36H Bag volume: 250mls over 1 hour. Monitoring Urinary Output and managing symptoms. - HYPERTENSION Blood pressure will be regularly assessed and medications administered as per physician recommendatio ns. - Depression Monitor patient for depression and treat as neccesary. Provide regular exercise, which is a proponent to fight depression. - CAD Administer Medication as indicated by physician. Vitals will be regularly monitored and symptoms alma ged. - GERD Monitor symptoms and provide medication as indicated by physician. - Hyponatremia Monitor sodium levels and administer IV fluids as inidicated. Monitor signs and symptoms and treat as indicated by physician. PATIENT COULD BE AT RISK FOR COMPLICATIONS FROM ADVERSE MEDICAL CONDITIONS DUE TO HIS/HER COMORBIDITI ES AND THE RIGORS OF THE INTENSIVE REHABILLITATION PROGRAM. METHODS OR INTERVENTIONS TO AVOID COMPLIC ATIONS INCLUDE: - Deep Vein Thrombosis (DVT) Prophylaxis therapy for prevention . Sequential Compression Device (SCD). BETHANY Dunn. - Bleeding Assess lab values and manage abnormalities. Nursing to teach precautions for anti-coagulation therapy . Wound to be assessed every shift. - Infection Clinical staff to assess and manage the signs and symptoms of infection including fever, redness, war mth, etc. - Urinary Tract Infection - Falls Patient will be evaluated for Fall Precautions and will be placed on Fall Precautions as indicated pe r protocol. - Skin Breakdown Nursing will assess skin daily using assessment tool and will place on Skin Breakdown Precautions as indicated per protocol. - Pain Clinical staff may employ non-medication methods such as massage, distraction, decrease stimulus, etc . as needed. Clinical staff will assess patient's pain level every shift per protocol to assess and e nsure pain management effectiveness. Medications will be given and the pain level re-assessed. PRELIMINARY PLAN OF CARE: - Physical Therapy Patient needs Physical Therapy for a daily minimum of 1.5 hours at least 5 out of 7 days, to improve: Mobility, Strengthening, Transfers, Stretching, ROM, Endurance, Ability to manage stairs, Gait, and Balance. - Speech Therapy Patient needs Speech Therapy for a daily minimum of 0.5 hours at least 5 out of 7 days, to improve: S wallowing, Cognition, Language Skills, and Compensatory Strategies. - Rehabilitation Nursing Patient requires 24x7 Rehabilitation Nursing for: Pain Issues, Identifying and preventing risk factor s, Monitoring and reporting current medical conditions, Assisting with ambulation and transfer, [place] ting with all ADL-s, Teaching patients about disease process and medications, Family teaching, Provid ing safe environment, Bowel and Bladder Issues, Skin Integrity, and Medication Management. Patient needs Ceramic Design Engineer and/or Case Management for: Discharge Planning, Arranging Home Equipmen t or Services, and Family Interventions. - Dietary and Nutrition Services Patient needs Dietary and Nutrition Services for: Adequate Nutrition, Nutritional Supplements, and Nu tritional Education. - Occupational Therapy Patient needs Occupational Therapy for a daily minimum of 1.5 hours at least 5 out of 7 days, to impr ove Activities of Daily Living, including: Eating, Grooming, Bathing, Dressing, Toileting, Toilet Tra nsfers, Community Reintegration, Higher functional activities, Adaptive Equipment, Splinting, Househo ld Tasks, and Other activities as determined. QI SCORES: - Self-Care A. Eating 03-Partial/moderate assistance B. Oral hygiene 03-Partial/moderate assistance C. Toileting hygiene 03-Partial/moderate assistance E. Shower/bathe self 03-Partial/moderate assistance F. Upper body dressing 03-Partial/moderate assistance G. Lower body dressing 03-Partial/moderate assistance H. Putting on/taking off footwear 03-Partial/moderate assistance - Mobility A. Roll left and right 03-Partial/moderate assistance B. Sit to lying 03-Partial/moderate assistance C. Lying to sitting on side of bed 03-Partial/moderate assistance D. Sit to stand 02-Substantial/maximal assistance E. Chair/mep-nc-ecswa transfer 03-Partial/moderate assistance F. Toilet transfer 03-Partial/moderate assistance G. Car transfer 88-Not attempted due to medical condition or safety concerns I. Walk 10 feet 03-Partial/moderate assistance J. Walk 50 feet with two turns 03-Partial/moderate assistance K. Walk 150 feet 03-Partial/moderate assistance L. Walking 10 feet on uneven surfaces 88-Not attempted due to medical condition or safety concerns M. 1 step (curb) 88-Not attempted due to medical condition or safety concerns N. 4 steps 88-Not attempted due to medical condition or safety concerns O. 12 steps 88-Not attempted due to medical condition or safety concerns P. Picking up object 88-Not attempted due to medical condition or safety concerns R. Wheel 50 feet with two turns 88-Not attempted due to medical condition or safety concerns S. Wheel 150 feet 88-Not attempted due to medical condition or safety concerns - Bladder and Bowel Bladder continence Bowel continence - Endurance Good - Balance Good - Safety Awareness Good POTENTIAL FUNCTIONAL GOALS FOR PATIENT TO ACHIEVE BY DISCHARGE: - Safety Precaution Patient will remain free from falls or injury at time of discharge. - Bed Mobility Patient will perform bed mobility at 4-Yanira level of assistance. - Transfers Patient will complete transfers from bed to chair at 4-Yanira level of assistance. - Mobility Patient will ambulate 150 ft with 4-Yanira level of assistance with RW. PATIENT REHAB POTENTIAL Yoan RIVERA is able and expected to receive 3 hours of individualized therapy daily on at least 5 of kelli ry 7 days Yoan RIVERA's prognosis for significant practical improvement within a reasonable period of time appears Good Expected level of measurable improvement will be of a practical value to Yoan RIVERA's functional capaci ty or adaptations to impairments Has a viable Discharge Plan Medically appropriate; condition is sufficiently stable to participate in intensive rehab program DISCHARGE PLAN: - Estimated Length of Stay (days) 13. - Consensus on plan Discharge plan has been discussed with primary caregiver. Patient/Family is in agreement with the danika n. Primary caregiver is in agreement with the plan. - Patient/Family Goals Return home independently. - Planned Living Setting Upon Discharge Home, to live with Family/Relatives. Transitional Living. CONCLUSION ON REHABILITATION NECESSITY: I have evaluated patient's pre-admission functional status and, comparing it to the patient's post-ad mission functional status now, I conclude that the pre-admission assessment was accurate. Patient's c ondition on admission supports the medical necessity of admission to IR[facility]. It is safe to proceed with patient's therapy program. SIGNATURE PANEL: (CDT)
[2022-01-28] MEDS: PANTOPRAZOLE 40MG TABLET PO SCH (05:24)
[2022-01-28] MEDS: DOCUSATE NA/SENNA CONC 1 TAB PO PRN (05:24)
[2022-01-28] MEDS: CRANBERRY FRUIT EXTRACT 400 MG CAP PO SCH ×2 (07:33→19:38)
[2022-01-28] MEDS: MELOXICAM 7.5 MG TAB PO SCH (07:33)
[2022-01-28] MEDS: DESVENLAFAXINE SUCCINATE 50 MG ER TAB PO SCH (07:33)
[2022-01-28] MEDS: SOLIFENACIN SUCCIN 5 MG TAB PO SCH (07:33)
[2022-01-28] MEDS: APIXABAN 2.5 MG TABLET PO SCH ×2 (07:33→19:39)
[2022-01-28] MEDS: AMLODIPINE 10 MG TAB PO SCH (07:33)
[2022-01-28] MEDS: lisinopriL 20 MG TAB PO SCH ×2 (07:34→19:39)
[2022-01-28] MEDS: NEUPRO 6 MG TOP SCH (09:27)
[2022-01-28] MEDS: FOLBIC 1 TAB PO SCH (09:49)
[2022-01-28] MEDS: MAGNESIUM HYDROXIDE 8% 30 ML PO PRN (16:15)
[2022-01-28] MEDS ORDERED: BISACODYL 10 MG RECTAL SUPP PR ONE (19:19)
[2022-01-28] MEDS: GABAPENTIN 300 MG CAP PO SCH (19:38)
[2022-01-28] MEDS: ATORVASTATIN 40 MG TAB PO SCH (19:38)
[2022-01-29] MEDS: PANTOPRAZOLE 40MG TABLET PO SCH (05:35)
[2022-01-29] MEDS: APIXABAN 2.5 MG TABLET PO SCH ×2 (07:21→21:00)
[2022-01-29] MEDS: SOLIFENACIN SUCCIN 5 MG TAB PO SCH (07:29)
[2022-01-29] MEDS: lisinopriL 20 MG TAB PO SCH ×2 (07:30→21:01)
[2022-01-29] MEDS: MELOXICAM 7.5 MG TAB PO SCH (07:31)
[2022-01-29] MEDS: FOLBIC 1 TAB PO SCH (07:31)
[2022-01-29] MEDS: DESVENLAFAXINE SUCCINATE 50 MG ER TAB PO SCH (07:32)
[2022-01-29] MEDS: AMLODIPINE 10 MG TAB PO SCH (08:00)
[2022-01-29] MEDS: CRANBERRY FRUIT EXTRACT 400 MG CAP PO SCH ×2 (10:09→21:00)
[2022-01-29] MEDS: NEUPRO 6 MG TOP SCH (10:09)
[2022-01-29] MEDS: AMLODIPINE 5 MG TAB PO SCH (10:09)
[2022-01-29] MEDS: GABAPENTIN 300 MG CAP PO SCH (21:01)
[2022-01-29] MEDS: ATORVASTATIN 40 MG TAB PO SCH (21:01)
[2022-01-30] MEDS: PANTOPRAZOLE 40MG TABLET PO SCH (05:25)
[2022-01-30] MEDS: MELOXICAM 7.5 MG TAB PO SCH (07:30)
[2022-01-30] MEDS: CRANBERRY FRUIT EXTRACT 400 MG CAP PO SCH ×2 (07:31→20:07)
[2022-01-30] MEDS: SOLIFENACIN SUCCIN 5 MG TAB PO SCH (07:31)
[2022-01-30] MEDS: FOLBIC 1 TAB PO SCH (07:32)
[2022-01-30] MEDS: DESVENLAFAXINE SUCCINATE 50 MG ER TAB PO SCH (07:32)
[2022-01-30] MEDS: lisinopriL 20 MG TAB PO SCH ×2 (07:32→20:06)
[2022-01-30] MEDS: NEUPRO 6 MG TOP SCH (07:33)
[2022-01-30] MEDS: APIXABAN 2.5 MG TABLET PO SCH ×2 (07:34→20:06)
[2022-01-30] MEDS: AMLODIPINE 5 MG TAB PO SCH (12:29)
--- NOTE | 2022-01-30 18:02 | R.PN ---
PROGRESS NOTES ENCOUNTER DATE AND TIME: 01/30/2022 17:53 (CDT) NAME HOSEA RIVERA DATE OF : 1940 DATE OF ADMISSION: 01/26/2022 18:49 (CDT) Multi-Organism Urinary Tract Infection with UrosepsisEscherichia ColiEnterococcus FaecalisStreptococc us Agalactiae Group BCHIEF COMPLAINT: Debility and multi-organism UTI. SUBJECTIVE: Pt denied any depression. Pt denied any Shortness of Breath. WBC 6.1, Hgb 10.1, prealbumin 10.1, covid -19 test is negative. Ambulated 750' with supervision and a rolling walker. Up and down 15 steps with contact guard assista nce. VITAL SIGNS Temperature: 97.6 F SBP/DBP: 134/64 Pulse: 70 Resp: 16 MEDICATION ALLERGIES: No Known Drug Allergies (NKDA) ENVIRONMENTAL ALLERGIES: - Substance Allergies None Known - Other Allergies None Known NURSING: - Shower allowing shower ACTIVITIES OOB only with supervision THERAPIES: - Dietary and Nutrition Adequate Nutrition. Nutritional Education. Nutritional Supplements. Evaluate and Treat. - Occupational Therapy Cognitive Retraining. Patient needs Occupational Therapy for a daily minimum of 1.5 hours at least 5 out of 7 days, to improve Activities of Daily Living, including: Eating, Grooming, Bathing, Dressing, Toileting, Toilet Transfers, Community Reintegration, Higher functional activities, Adaptive Equipme nt, Splinting, Household Tasks, and Other activities as determined. Visual Perceptual Training. Evalu ate and Treat. ADL Training. Household Tasks. Patient/Family Education. Safety Awareness. - Speech Therapy Cognitive Training. Expressive Language Skills. Memory Strategies. Patient needs Speech Therapy for a daily minimum of 1.5 hours at least 5 out of 7 days, to improve: Swallowing, Cognition, Language Ski lls, and Compensatory Strategies. Receptive Language Skills. Speech Intelligibility Training. Evaluat e and Treat. - Physical Therapy Patient needs Physical Therapy for a daily minimum of 1.5 hours at least 5 out of 7 days, to improve: Mobility, Strengthening, Transfers, Stretching, ROM, Endurance, Ability to manage stairs, Gait, and Balance. Balance Training. Evaluate and Treat. Gait Training. LE Strengthening. Transfer Training. Sa fety Awareness. PHYSICAL EXAM - Gen Alert and awake Lying in bed No apparent distress Oriented to: person, time, and place - Skin No breakdown Normacephalic - Eyes No abnormalities - ENMT No abnormalities - Neck No abnormalities - CVS RRR - Chest No abnormalities - Resp No wheezing - Abd Soft - GI Non distended Deferred - No abnormalities - Ext No significant edema - MSK 4/5 weakness in both lower extremities. - Neuro No focal deficits - Psych No abnormalities ASSESSMENT: Pt. is a 81 yo Right-handed female.On 01/21/2022 she was admitted to [facility] with mara gnosis Multi-Organism Urinary Tract Infection with Urosepsis.Her impairment category is Medically Com plex Conditions 17 - Infections (17.1).Pre-morbidly, Pt. was independent/mod-I in Locomotion, Social Cognition, Safety Awareness, Balance, and Transfers Control; and she had good Transfers Control, Sph incter Control, Self-Care, Endurance, and Communication.Currently, she has deficits of Locomotion, So cial Cognition, Transfers Control, Balance, Sphincter Control, Safety Awareness, Self-Care, Communica tion, and Endurance.Pt. is now referred to [facility] for acute in-patient feng abilitation in order to maximize patient's functional independence in activities of daily living, str ength, ROM, and mobility.- Rehab Goal Patient has realistic goal of being discharged at assistance level 7-Ind to reside at Home with Fami ly/Relatives. MDM/PLAN: - Physical Therapy Inability to transfer - to improve, our physical therapists will perform initial evaluation of pt's status upon admission and devise an individualized program for Bed mobility Need for home safety evaluation - to improve, our physical therapists will perform initial evaluatio n of pt's status upon admission and devise an individualized program for Home Evaluation Need in caregiver upon discharge - to improve, our physical therapists will perform initial evaluati on of pt's status upon admission and devise an individualized program for Caregiver Training New precaution - to improve, our physical therapists will perform initial evaluation of pt's status upon admission and devise an individualized program for Patient precaution education Edema - to improve, our physical therapists will perform initial evaluation of pt's status upon admis ralf and devise an individualized program for Elevation Training, and Lymphedema Therapy Poor balance - to improve, our physical therapists will perform initial evaluation of pt's status up on admission and devise an individualized program for Balance Training Poor endurance - to improve, our physical therapists will perform initial evaluation of pt's status upon admission and devise an individualized program for Endurance Training Achieving independence - to improve, our physical therapists will perform initial evaluation of pt's status upon admission and devise an individualized program for Community Reintegration Activities - Occupational Therapy ADL deficits - to improve, our occupation therapists will perform initial evaluation of pt's status upon admission and devise an individualized program for Bathing, Bed mobility, Community Reintegratio n, Cooking, Dressing, Eating, Fine Motor Skills, Grooming, Homemaking, Kitchen Mobility, Laundry, Pat ient Education, Safety Awareness, Splinting - Positioning, Transfers(Toilet, Tub, Shower), and Wheel Chair Management Cognitive deficits - to improve, our occupation therapists will perform initial evaluation of pt's s tatus upon admission and devise an individualized program for Cognition - orientation Need for pharmacist critical care - to improve, our occupation therapists will perform initial evaluation of pt's status upon admission and devise an individualized program for Caregiver Training - Other See attached MAR (Medication Administration Record) - Diet Type Continue Regular - Diet - Liquid Texture Continue Regular - Tube Feed Continue N/A - Diet - Solid Texture Continue Regular - Shower allowing shower FUNCTIONAL STATUS: UPDATED AT WEEKLY TEAM CONFERENCE - Bladder Same accident frequency: 7-Ind - No accidents in the past 7 days - Bowel Same accident frequency: 7-Ind - No accidents in the past 7 days - Walking Same score based on distance walked: 0(N/A) Same score based on distance walked: 3(>=150ft) - Wheelchair Same score based on distance traveled: 0(N/A) FUNCTIONAL STATUS: - Self-Care A. Eating Duran B. Grooming Duran C. Bathing sup D. Dressing - Upper Duran E. Dressing - Lower Duran F. Toileting Duran - Sphincter Control G. Bladder control sup H. Bowel control Duran - Transfers Control I. Bed/Chair/Wheelchair sup J. Toilet sup K. Tub/Shower Ind - Locomotion L. Walk/Wheelchair (B) Yanira M. Stairs Yanira - Communication N. Comprehension (B) Duran O. Expression (B) Duran - Social Cognition P. Social Interaction Duran Q. Problem Solving Duran R. Memory Ind - Endurance Good - Balance Good - Safety Awareness Good QI SCORES: - Self-Care A. Eating 03-Partial/moderate assistance B. Oral hygiene 03-Partial/moderate assistance C. Toileting hygiene 03-Partial/moderate assistance E. Shower/bathe self 03-Partial/moderate assistance F. Upper body dressing 03-Partial/moderate assistance G. Lower body dressing 03-Partial/moderate assistance H. Putting on/taking off footwear 03-Partial/moderate assistance - Mobility A. Roll left and right 03-Partial/moderate assistance B. Sit to lying 03-Partial/moderate assistance C. Lying to sitting on side of bed 03-Partial/moderate assistance D. Sit to stand 02-Substantial/maximal assistance E. Chair/arz-vo-ehyuc transfer 03-Partial/moderate assistance F. Toilet transfer 03-Partial/moderate assistance G. Car transfer 88-Not attempted due to medical condition or safety concerns I. Walk 10 feet 03-Partial/moderate assistance J. Walk 50 feet with two turns 03-Partial/moderate assistance K. Walk 150 feet 03-Partial/moderate assistance L. Walking 10 feet on uneven surfaces 88-Not attempted due to medical condition or safety concerns M. 1 step (curb) 88-Not attempted due to medical condition or safety concerns N. 4 steps 88-Not attempted due to medical condition or safety concerns O. 12 steps 88-Not attempted due to medical condition or safety concerns P. Picking up object 88-Not attempted due to medical condition or safety concerns R. Wheel 50 feet with two turns 88-Not attempted due to medical condition or safety concerns S. Wheel 150 feet 88-Not attempted due to medical condition or safety concerns - Bladder and Bowel Bladder continence Bowel continence - Endurance Good - Balance Good - Safety Awareness Good CURRENT FUNC. DEFICITS: Self-Care and Mobility SIGNATURE PANEL: (CDT)
[2022-01-30] MEDS: ATORVASTATIN 40 MG TAB PO SCH (20:06)
[2022-01-30] MEDS: GABAPENTIN 300 MG CAP PO SCH (20:06)
[2022-01-31] MEDS: PANTOPRAZOLE 40MG TABLET PO SCH (06:31)
[2022-01-31] MEDS: DESVENLAFAXINE SUCCINATE 50 MG ER TAB PO SCH (07:32)
[2022-01-31] MEDS: FOLBIC 1 TAB PO SCH (07:32)
[2022-01-31] MEDS: MELOXICAM 7.5 MG TAB PO SCH (07:33)
[2022-01-31] MEDS: lisinopriL 20 MG TAB PO SCH ×2 (07:33→19:41)
[2022-01-31] MEDS: APIXABAN 2.5 MG TABLET PO SCH ×2 (07:33→19:41)
[2022-01-31] MEDS: CRANBERRY FRUIT EXTRACT 400 MG CAP PO SCH ×2 (07:33→19:41)
[2022-01-31] MEDS: AMLODIPINE 5 MG TAB PO SCH (07:33)
[2022-01-31] MEDS: SOLIFENACIN SUCCIN 5 MG TAB PO SCH (07:33)
[2022-01-31] MEDS: NEUPRO 6 MG TOP SCH (10:16)
--- NOTE | 2022-01-31 16:45 | R.PN ---
PROGRESS NOTES ENCOUNTER DATE AND TIME: 01/31/2022 16:40 (CDT) NAME HOSEA RIVERA DATE OF : 1940 DATE OF ADMISSION: 01/26/2022 18:49 (CDT) Multi-Organism Urinary Tract Infection with UrosepsisEscherichia ColiEnterococcus FaecalisStreptococc us Agalactiae Group BCHIEF COMPLAINT: Debility and multi-organism UTI. SUBJECTIVE: Pt denied any depression. Pt denied any Shortness of Breath. WBC 6.1, Hgb 10.1, prealbumin 10.1, covid -19 test is negative. Ambulated 1500' with modified independence using a rolling walker. Up and down 15 steps with contact guard assistance. Self-propelled wheelchair 500' with modified independence VITAL SIGNS Temperature: 97.8 F SBP/DBP: 161/66 Pulse: 70 Resp: 16 MEDICATION ALLERGIES: No Known Drug Allergies (NKDA) ENVIRONMENTAL ALLERGIES: - Substance Allergies None Known - Other Allergies None Known NURSING: - Shower allowing shower ACTIVITIES OOB only with supervision THERAPIES: - Dietary and Nutrition Adequate Nutrition. Nutritional Education. Nutritional Supplements. Evaluate and Treat. - Occupational Therapy Cognitive Retraining. Patient needs Occupational Therapy for a daily minimum of 1.5 hours at least 5 out of 7 days, to improve Activities of Daily Living, including: Eating, Grooming, Bathing, Dressing, Toileting, Toilet Transfers, Community Reintegration, Higher functional activities, Adaptive Equipme nt, Splinting, Household Tasks, and Other activities as determined. Visual Perceptual Training. Evalu ate and Treat. ADL Training. Household Tasks. Patient/Family Education. Safety Awareness. - Speech Therapy Cognitive Training. Expressive Language Skills. Memory Strategies. Patient needs Speech Therapy for a daily minimum of 1.5 hours at least 5 out of 7 days, to improve: Swallowing, Cognition, Language Ski lls, and Compensatory Strategies. Receptive Language Skills. Speech Intelligibility Training. Evaluat e and Treat. - Physical Therapy Patient needs Physical Therapy for a daily minimum of 1.5 hours at least 5 out of 7 days, to improve: Mobility, Strengthening, Transfers, Stretching, ROM, Endurance, Ability to manage stairs, Gait, and Balance. Balance Training. Evaluate and Treat. Gait Training. LE Strengthening. Transfer Training. Sa fety Awareness. PHYSICAL EXAM - Gen Alert and awake Lying in bed No apparent distress Oriented to: person, time, and place - Skin No breakdown Normacephalic - Eyes No abnormalities - ENMT No abnormalities - Neck No abnormalities - CVS RRR - Chest No abnormalities - Resp No wheezing - Abd Soft - GI Non distended Deferred - No abnormalities - Ext No significant edema - MSK 4/5 weakness in both lower extremities. - Neuro No focal deficits - Psych No abnormalities ASSESSMENT: Pt. is a 81 yo Right-handed female.On 01/21/2022 she was admitted to [facility] with mara gnosis Multi-Organism Urinary Tract Infection with Urosepsis.Her impairment category is Medically Com plex Conditions 17 - Infections (17.1).Pre-morbidly, Pt. was independent/mod-I in Locomotion, Social Cognition, Safety Awareness, Balance, and Transfers Control; and she had good Transfers Control, Sph incter Control, Self-Care, Endurance, and Communication.Currently, she has deficits of Locomotion, So cial Cognition, Transfers Control, Balance, Sphincter Control, Safety Awareness, Self-Care, Communica tion, and Endurance.Pt. is now referred to [facility] for acute in-patient feng abilitation in order to maximize patient's functional independence in activities of daily living, str ength, ROM, and mobility.- Rehab Goal Patient has realistic goal of being discharged at assistance level 7-Ind to reside at Home with Fami ly/Relatives. MDM/PLAN: - Physical Therapy Inability to transfer - to improve, our physical therapists will perform initial evaluation of pt's status upon admission and devise an individualized program for Bed mobility Need for home safety evaluation - to improve, our physical therapists will perform initial evaluatio n of pt's status upon admission and devise an individualized program for Home Evaluation Need in caregiver upon discharge - to improve, our physical therapists will perform initial evaluati on of pt's status upon admission and devise an individualized program for Caregiver Training New precaution - to improve, our physical therapists will perform initial evaluation of pt's status upon admission and devise an individualized program for Patient precaution education Edema - to improve, our physical therapists will perform initial evaluation of pt's status upon admi ssion and devise an individualized program for Elevation Training, and Lymphedema Therapy Poor balance - to improve, our physical therapists will perform initial evaluation of pt's status up on admission and devise an individualized program for Balance Training Poor endurance - to improve, our physical therapists will perform initial evaluation of pt's status upon admission and devise an individualized program for Endurance Training Achieving independence - to improve, our physical therapists will perform initial evaluation of pt's status upon admission and devise an individualized program for Community Reintegration Activities - Occupational Therapy ADL deficits - to improve, our occupation therapists will perform initial evaluation of pt's status upon admission and devise an individualized program for Bathing, Bed mobility, Community Reintegratio n, Cooking, Dressing, Eating, Fine Motor Skills, Grooming, Homemaking, Kitchen Mobility, Laundry, Pat ient Education, Safety Awareness, Splinting - Positioning, Transfers(Toilet, Tub, Shower), and Wheel Chair Management Cognitive deficits - to improve, our occupation therapists will perform initial evaluation of pt's s tatus upon admission and devise an individualized program for Cognition - orientation Need for customer care specialist - to improve, our occupation therapists will perform initial evaluation of pt's status upon admission and devise an individualized program for Caregiver Training - Other See attached MAR (Medication Administration Record) - Diet Type Continue Regular - Diet - Liquid Texture Continue Regular - Tube Feed Continue N/A - Diet - Solid Texture Continue Regular - Shower allowing shower FUNCTIONAL STATUS: UPDATED AT WEEKLY TEAM CONFERENCE - Bladder Same accident frequency: 7-Ind - No accidents in the past 7 days - Bowel Same accident frequency: 7-Ind - No accidents in the past 7 days - Walking Same score based on distance walked: 0(N/A) Same score based on distance walked: 3(>=150ft) - Wheelchair Same score based on distance traveled: 0(N/A) FUNCTIONAL STATUS: - Self-Care A. Eating Duran B. Grooming Duran C. Bathing sup D. Dressing - Upper Duran E. Dressing - Lower Duran F. Toileting Duran - Sphincter Control G. Bladder control sup H. Bowel control Duran - Transfers Control I. Bed/Chair/Wheelchair sup J. Toilet sup K. Tub/Shower Ind - Locomotion L. Walk/Wheelchair (B) Yanira M. Stairs Yanira - Communication N. Comprehension (B) Duran O. Expression (B) Duran - Social Cognition P. Social Interaction Duran Q. Problem Solving Duran R. Memory Ind - Endurance Good - Balance Good - Safety Awareness Good QI SCORES: - Self-Care A. Eating 03-Partial/moderate assistance B. Oral hygiene 03-Partial/moderate assistance C. Toileting hygiene 03-Partial/moderate assistance E. Shower/bathe self 03-Partial/moderate assistance F. Upper body dressing 03-Partial/moderate assistance G. Lower body dressing 03-Partial/moderate assistance H. Putting on/taking off footwear 03-Partial/moderate assistance - Mobility A. Roll left and right 03-Partial/moderate assistance B. Sit to lying 03-Partial/moderate assistance C. Lying to sitting on side of bed 03-Partial/moderate assistance D. Sit to stand 02-Substantial/maximal assistance E. Chair/[id number]-[id number] transfer 03-Partial/moderate assistance F. Toilet transfer 03-Partial/moderate assistance G. Car transfer 88-Not attempted due to medical condition or safety concerns I. Walk 10 feet 03-Partial/moderate assistance J. Walk 50 feet with two turns 03-Partial/moderate assistance K. Walk 150 feet 03-Partial/moderate assistance L. Walking 10 feet on uneven surfaces 88-Not attempted due to medical condition or safety concerns M. 1 step (curb) 88-Not attempted due to medical condition or safety concerns N. 4 steps 88-Not attempted due to medical condition or safety concerns O. 12 steps 88-Not attempted due to medical condition or safety concerns P. Picking up object 88-Not attempted due to medical condition or safety concerns R. Wheel 50 feet with two turns 88-Not attempted due to medical condition or safety concerns S. Wheel 150 feet 88-Not attempted due to medical condition or safety concerns - Bladder and Bowel Bladder continence Bowel continence - Endurance Good - Balance Good - Safety Awareness Good CURRENT FUNC. DEFICITS: Self-Care and Mobility SIGNATURE PANEL: (CDT)
[2022-01-31] MEDS: GABAPENTIN 300 MG CAP PO SCH (19:40)
[2022-01-31] MEDS: DOCUSATE NA/SENNA CONC 1 TAB PO PRN (19:41)
[2022-01-31] MEDS: ATORVASTATIN 40 MG TAB PO SCH (19:41)
[2022-01-31] MEDS: ENSURE HIGH PROTEIN 237 ML CAN PO SCH (19:41)
[2022-02-01 04:48] LABS: Absolute Lymphocytes (CBC) 2.6 K/uL (0.7-4.9); Hematocrit 30.3 % (36.0-45.0); Lymphocytes % 45.1 % (15.3-44.8); MPV 7.3 fL (7.6-11.3); RBC Red Blood Cell Count 3.33 M/uL (3.86-4.86)
[2022-02-01 05:10] LABS: Albumin 2.9 g/dL (3.4-5.0); Potassium 4.1 mmol/L (3.5-5.1); Prealbumin 14.9 mg/dL (20-40)
[2022-02-01 05:33] LABS: Blood Morphology Comment NOT SEEN (NOT SEEN); Platelet Estimate ADEQ
[2022-02-01] MEDS: PANTOPRAZOLE 40MG TABLET PO SCH (07:00)
[2022-02-01] MEDS: FOLBIC 1 TAB PO SCH (07:22)
[2022-02-01] MEDS: SOLIFENACIN SUCCIN 5 MG TAB PO SCH (07:22)
[2022-02-01] MEDS: DESVENLAFAXINE SUCCINATE 50 MG ER TAB PO SCH (07:22)
[2022-02-01] MEDS: MELOXICAM 7.5 MG TAB PO SCH (07:22)
[2022-02-01] MEDS: NEUPRO 6 MG TOP SCH (07:22)
[2022-02-01] MEDS: FERROUS SULFATE 325 MG TAB PO SCH (07:23)
[2022-02-01] MEDS: CRANBERRY FRUIT EXTRACT 400 MG CAP PO SCH ×2 (07:23→19:44)
[2022-02-01] MEDS: APIXABAN 2.5 MG TABLET PO SCH ×2 (07:23→20:00)
[2022-02-01] MEDS: lisinopriL 20 MG TAB PO SCH ×2 (07:23→19:44)
[2022-02-01] MEDS: ENSURE HIGH PROTEIN 237 ML CAN PO SCH ×2 (07:24→19:45)
[2022-02-01] MEDS: AMLODIPINE 5 MG TAB PO SCH (07:25)
[2022-02-01] MEDS ORDERED: FORMULATION-R RECTAL 57GM PR PRN (16:37)
--- NOTE | 2022-02-01 18:30 | R.PN ---
PROGRESS NOTES ENCOUNTER DATE AND TIME: 02/01/2022 18:26 (CDT) NAME HOSEA RIVERA DATE OF : 1940 DATE OF ADMISSION: 01/26/2022 18:49 (CDT) Multi-Organism Urinary Tract Infection with UrosepsisEscherichia ColiEnterococcus FaecalisStreptococc us Agalactiae Group BCHIEF COMPLAINT: Debility and multi-organism UTI. SUBJECTIVE: Pt denied any depression. Pt denied any Shortness of Breath. WBC 5.8, Hgb 10.1, prealbumin 14.9, covid -19 test is negative. Ambulated 1500' with modified independence using a rolling walker. Up and down 15 steps with contact guard assistance. Self-propelled wheelchair 500' with modified independence VITAL SIGNS Temperature: 98.3 F SBP/DBP: 146/67 Pulse: 67 Resp: 16 MEDICATION ALLERGIES: No Known Drug Allergies (NKDA) ENVIRONMENTAL ALLERGIES: - Substance Allergies None Known - Other Allergies None Known NURSING: - Shower allowing shower ACTIVITIES OOB only with supervision THERAPIES: - Dietary and Nutrition Adequate Nutrition. Nutritional Education. Nutritional Supplements. Evaluate and Treat. - Occupational Therapy Cognitive Retraining. Patient needs Occupational Therapy for a daily minimum of 1.5 hours at least 5 out of 7 days, to improve Activities of Daily Living, including: Eating, Grooming, Bathing, Dressing, Toileting, Toilet Transfers, Community Reintegration, Higher functional activities, Adaptive Equipme nt, Splinting, Household Tasks, and Other activities as determined. Visual Perceptual Training. Evalu ate and Treat. ADL Training. Household Tasks. Patient/Family Education. Safety Awareness. - Speech Therapy Cognitive Training. Expressive Language Skills. Memory Strategies. Patient needs Speech Therapy for a daily minimum of 1.5 hours at least 5 out of 7 days, to improve: Swallowing, Cognition, Language Ski lls, and Compensatory Strategies. Receptive Language Skills. Speech Intelligibility Training. Evaluat e and Treat. - Physical Therapy Patient needs Physical Therapy for a daily minimum of 1.5 hours at least 5 out of 7 days, to improve: Mobility, Strengthening, Transfers, Stretching, ROM, Endurance, Ability to manage stairs, Gait, and Balance. Balance Training. Evaluate and Treat. Gait Training. LE Strengthening. Transfer Training. Sa fety Awareness. PHYSICAL EXAM - Gen Alert and awake Lying in bed No apparent distress Oriented to: person, time, and place - Skin No breakdown Normacephalic - Eyes No abnormalities - ENMT No abnormalities - Neck No abnormalities - CVS RRR - Chest No abnormalities - Resp No wheezing - Abd Soft - GI Non distended Deferred - No abnormalities - Ext No significant edema - MSK 4/5 weakness in both lower extremities. - Neuro No focal deficits - Psych No abnormalities ASSESSMENT: Pt. is a 81 yo Right-handed female.On 01/21/2022 she was admitted to [facility] with mara gnosis Multi-Organism Urinary Tract Infection with Urosepsis.Her impairment category is Medically Com plex Conditions 17 - Infections (17.1).Pre-morbidly, Pt. was independent/mod-I in Locomotion, Social Cognition, Safety Awareness, Balance, and Transfers Control; and she had good Transfers Control, Sph incter Control, Self-Care, Endurance, and Communication.Currently, she has deficits of Locomotion, So cial Cognition, Transfers Control, Balance, Sphincter Control, Safety Awareness, Self-Care, Communica tion, and Endurance.Pt. is now referred to [facility] for acute in-patient feng abilitation in order to maximize patient's functional independence in activities of daily living, str ength, ROM, and mobility.- Rehab Goal Patient has realistic goal of being discharged at assistance level 7-Ind to reside at Home with Fami ly/Relatives. MDM/PLAN: - Physical Therapy Inability to transfer - to improve, our physical therapists will perform initial evaluation of pt's status upon admission and devise an individualized program for Bed mobility Need for home safety evaluation - to improve, our physical therapists will perform initial evaluatio n of pt's status upon admission and devise an individualized program for Home Evaluation Need in caregiver upon discharge - to improve, our physical therapists will perform initial evaluati on of pt's status upon admission and devise an individualized program for Caregiver Training New precaution - to improve, our physical therapists will perform initial evaluation of pt's status upon admission and devise an individualized program for Patient precaution education Edema - to improve, our physical therapists will perform initial evaluation of pt's status upon admi ssion and devise an individualized program for Elevation Training, and Lymphedema Therapy Poor balance - to improve, our physical therapists will perform initial evaluation of pt's status up on admission and devise an individualized program for Balance Training Poor endurance - to improve, our physical therapists will perform initial evaluation of pt's status upon admission and devise an individualized program for Endurance Training Achieving independence - to improve, our physical therapists will perform initial evaluation of pt's status upon admission and devise an individualized program for Community Reintegration Activities - Occupational Therapy ADL deficits - to improve, our occupation therapists will perform initial evaluation of pt's status upon admission and devise an individualized program for Bathing, Bed mobility, Community Reintegratio n, Cooking, Dressing, Eating, Fine Motor Skills, Grooming, Homemaking, Kitchen Mobility, Laundry, Pat ient Education, Safety Awareness, Splinting - Positioning, Transfers(Toilet, Tub, Shower), and Wheel Chair Management Cognitive deficits - to improve, our occupation therapists will perform initial evaluation of pt's s tatus upon admission and devise an individualized program for Cognition - orientation Need for director career - to improve, our occupation therapists will perform initial evaluation of pt's status upon admission and devise an individualized program for Caregiver Training - Other See attached MAR (Medication Administration Record) - Diet Type Continue Regular - Diet - Liquid Texture Continue Regular - Tube Feed Continue N/A - Diet - Solid Texture Continue Regular - Shower allowing shower FUNCTIONAL STATUS: UPDATED AT WEEKLY TEAM CONFERENCE - Bladder Same accident frequency: 7-Ind - No accidents in the past 7 days - Bowel Same accident frequency: 7-Ind - No accidents in the past 7 days - Walking Same score based on distance walked: 0(N/A) Same score based on distance walked: 3(>=150ft) - Wheelchair Same score based on distance traveled: 0(N/A) FUNCTIONAL STATUS: - Self-Care A. Eating Duran B. Grooming Duran C. Bathing sup D. Dressing - Upper Duran E. Dressing - Lower Duran F. Toileting Duran - Sphincter Control G. Bladder control sup H. Bowel control Duran - Transfers Control I. Bed/Chair/Wheelchair sup J. Toilet sup K. Tub/Shower Ind - Locomotion L. Walk/Wheelchair (B) Yanira M. Stairs Yanira - Communication N. Comprehension (B) Duran O. Expression (B) Duran - Social Cognition P. Social Interaction Duran Q. Problem Solving Duran R. Memory Ind - Endurance Good - Balance Good - Safety Awareness Good QI SCORES: - Self-Care A. Eating 03-Partial/moderate assistance B. Oral hygiene 03-Partial/moderate assistance C. Toileting hygiene 03-Partial/moderate assistance E. Shower/bathe self 03-Partial/moderate assistance F. Upper body dressing 03-Partial/moderate assistance G. Lower body dressing 03-Partial/moderate assistance H. Putting on/taking off footwear 03-Partial/moderate assistance - Mobility A. Roll left and right 03-Partial/moderate assistance B. Sit to lying 03-Partial/moderate assistance C. Lying to sitting on side of bed 03-Partial/moderate assistance D. Sit to stand 02-Substantial/maximal assistance E. Chair/[id number] transfer 03-Partial/moderate assistance F. Toilet transfer 03-Partial/moderate assistance G. Car transfer 88-Not attempted due to medical condition or safety concerns I. Walk 10 feet 03-Partial/moderate assistance J. Walk 50 feet with two turns 03-Partial/moderate assistance K. Walk 150 feet 03-Partial/moderate assistance L. Walking 10 feet on uneven surfaces 88-Not attempted due to medical condition or safety concerns M. 1 step (curb) 88-Not attempted due to medical condition or safety concerns N. 4 steps 88-Not attempted due to medical condition or safety concerns O. 12 steps 88-Not attempted due to medical condition or safety concerns P. Picking up object 88-Not attempted due to medical condition or safety concerns R. Wheel 50 feet with two turns 88-Not attempted due to medical condition or safety concerns S. Wheel 150 feet 88-Not attempted due to medical condition or safety concerns - Bladder and Bowel Bladder continence Bowel continence - Endurance Good - Balance Good - Safety Awareness Good CURRENT FUNC. DEFICITS: Self-Care and Mobility SIGNATURE PANEL: (CDT)
[2022-02-01] MEDS: ATORVASTATIN 40 MG TAB PO SCH (19:44)
[2022-02-01] MEDS: GABAPENTIN 300 MG CAP PO SCH (19:44)
[2022-02-01] MEDS: DOCUSATE NA/SENNA CONC 1 TAB PO PRN (19:44)
[2022-02-02] MEDS: PANTOPRAZOLE 40MG TABLET PO SCH (06:32)
[2022-02-02] MEDS: FERROUS SULFATE 325 MG TAB PO SCH (07:50)
[2022-02-02] MEDS: SOLIFENACIN SUCCIN 5 MG TAB PO SCH (07:50)
[2022-02-02] MEDS: FOLBIC 1 TAB PO SCH (07:50)
[2022-02-02] MEDS: DESVENLAFAXINE SUCCINATE 50 MG ER TAB PO SCH (07:50)
[2022-02-02] MEDS: ENSURE HIGH PROTEIN 237 ML CAN PO SCH ×2 (07:50→20:46)
[2022-02-02] MEDS: MELOXICAM 7.5 MG TAB PO SCH (07:50)
[2022-02-02] MEDS: AMLODIPINE 5 MG TAB PO SCH (07:51)
[2022-02-02] MEDS: lisinopriL 20 MG TAB PO SCH ×2 (07:51→20:46)
[2022-02-02] MEDS: CRANBERRY FRUIT EXTRACT 400 MG CAP PO SCH ×2 (07:51→20:46)
[2022-02-02] MEDS: APIXABAN 2.5 MG TABLET PO SCH ×2 (07:51→20:46)
[2022-02-02] MEDS: NEUPRO 6 MG TOP SCH (07:53)
--- NOTE | 2022-02-02 09:39 | P.RH.PN ---
Estimated Length of Stay: 9 Expected Discharge Date: 02/04/22 Discharge Disposition Plan: Home Family Support: Yes Machine Helper Goal: Mobility, Transfers, Self Care Vital Signs: Last Vital Signs Temp 97.3 F 02/02/22 07:51 Pulse 74 02/02/22 07:51 Resp 17 02/02/22 07:51 BP 124/57 L 02/02/22 07:51 Pulse Ox 97 02/02/22 07:51 Laboratory: Laboratory Last Values WBC 5.8 K/uL (4.3-10.9) 02/01/22 04:06 RBC 3.33 M/uL (3.86-4.86) L 02/01/22 04:06 Hgb 10.1 g/dL (12.0-15.0) L 02/01/22 04:06 Hct 30.3 % (36.0-45.0) L 02/01/22 04:06 MCV 91.1 fL (80-100) 02/01/22 04:06 MCH 30.4 pg (27.0-35.0) 02/01/22 04:06 MCHC 33.4 g/dL (32.0-36.0) 02/01/22 04:06 RDW 13.4 % (12.1-15.2) 02/01/22 04:06 Plt Count 293 K/uL (152-406) D 02/01/22 04:06 MPV 7.3 fL (7.6-11.3) L 02/01/22 04:06 Neutrophils % 34.5 % (41.7-73.7) L 02/01/22 04:06 Lymphocytes % 45.1 % (15.3-44.8) H 02/01/22 04:06 Monocytes % 12.0 % (3.3-12.3) 02/01/22 04:06 Eosinophils % 7.5 % (0-4.4) H 02/01/22 04:06 Basophils % 0.9 % (0-1.3) 02/01/22 04:06 Absolute Neutrophils 2.0 K/uL (1.8-8.0) 02/01/22 04:06 Segmented Neutrophils 22 % (40-80) L 02/01/22 04:06 Absolute Lymphocytes 2.6 K/uL (0.7-4.9) 02/01/22 04:06 Lymphocytes 65 % (15-42) H 02/01/22 04:06 Monocytes 6 % (0-10) 02/01/22 04:06 Absolute Monocytes 0.7 K/uL (0.1-1.3) 02/01/22 04:06 Eosinophils 4 % (0-3) H 02/01/22 04:06 Absolute Eosinophils 0.4 K/uL (0-0.5) 02/01/22 04:06 Basophils 1 % (0-1) 02/01/22 04:06 Absolute Basophils 0.1 K/uL (0-0.5) 02/01/22 04:06 Reactive Lymphocytes 2 % 02/01/22 04:06 Platelet Estimate Adeq 02/01/22 04:06 Morphology Comment Not seen (NOT SEEN) 02/01/22 04:06 Sodium 139 mmol/L (136-145) 02/01/22 04:06 Potassium 4.1 mmol/L (3.5-5.1) 02/01/22 04:06 Chloride 109 mmol/L (98-107) H 02/01/22 04:06 Carbon Dioxide 28 mmol/L (21-32) 02/01/22 04:06 Anion Gap 6.1 mEq/L (5.0-15.0) 02/01/22 04:06 BUN 21 mg/dL (7-18) H 02/01/22 04:06 Creatinine 0.97 mg/dL (0.55-1.3) 02/01/22 04:06 Est GFR (CKD-EPI) 58 ml/min (=/>90) L 02/01/22 04:06 Glucose 98 mg/dL (74-106) 02/01/22 04:06 Calcium 8.9 mg/dL (8.5-10.1) 02/01/22 04:06 Magnesium 2.0 mg/dL (1.8-2.4) 02/01/22 04:06 Albumin 2.9 g/dL (3.4-5.0) L 02/01/22 04:06 Prealbumin 14.9 mg/dL (20-40) L 02/01/22 04:06 Urine Color Yellow (Yellow) 01/27/22 06:02 Urine Appearance Clear (Clear) 01/27/22 06:02 Urine pH 5.5 (5.0-7.0) 01/27/22 06:02 Ur Specific Dennis 1.010 (1.005-1.030) 01/27/22 06:02 Glucose (UA)(Auto) Negative (Negative) 01/27/22 06:02 Urine Ketones Negative (Negative) 01/27/22 06:02 Urine Blood Negative (Negative) 01/27/22 06:02 Urine Nitrite Negative (Negative) 01/27/22 06:02 Urine Bilirubin Negative (Negative) 01/27/22 06:02 Urine Urobilinogen 0.2 mg/dL (0.2-1.0) 01/27/22 06:02 Ur Leukocyte Esterase Negative (Negative) 01/27/22 06:02 Urine RBC <5 /HPF (NONE SEEN) 01/27/22 06:02 Urine WBC <5 /HPF (<5) 01/27/22 06:02 Ur Squamous Epith Cells 5-10 /HPF (NONE SEEN) H 01/27/22 06:02 Ur Urothelial Cells Cancelled 01/27/22 05:05 Calcium Oxalate Crystal Cancelled 01/27/22 05:05 Uric Acid Crystals Cancelled 01/27/22 05:05 Triple Phos Crystals Cancelled 01/27/22 05:05 Other Crystals Cancelled 01/27/22 05:05 Amorphous Sediment Cancelled 01/27/22 05:05 Glitter Cells Cancelled 01/27/22 05:05 Urine Bacteria 20-50 /HPF (<20) H 01/27/22 06:02 Hyaline Casts Cancelled 01/27/22 05:05 Fine Granular Casts Cancelled 01/27/22 05:05 Coarse Granular Casts Cancelled 01/27/22 05:05 Waxy Casts Cancelled 01/27/22 05:05 RBC Casts Cancelled 01/27/22 05:05 WBC Casts Cancelled 01/27/22 05:05 Urine Mucus 2+ /HPF (NONE SEEN) 01/27/22 06:02 Urine Other Cancelled 01/27/22 05:05 Urine Trichomonas Cancelled 01/27/22 05:05 Urine Yeast Cancelled 01/27/22 05:05 Ur Yeast w Hyphae Cancelled 01/27/22 05:05 Urine Yeast (Budding) Cancelled 01/27/22 05:05 Urine Sperm Cancelled 01/27/22 05:05 Urine Culture Reflexed Not needed 01/27/22 06:02 Urine Total Volume Cancelled 01/27/22 05:05 Urine Total Protein Negative (Negative) 01/27/22 06:02 SARS-CoV-2 Rap RNA(RT-PCR) Negative (NEGATIVE) 01/27/22 05:10 Weight: 172 lb Wound Present: No Closed Surgical Incision Present: No Negative Pressure Wound Therapy Present: No Physician Update: Labs were reviewed. Bed mobility is Mod I. Transfers mod I. 750' walking with Mod I. Up and down 15 steps with contact guard required. Independent with most of ADLs. Transfers are standby assistance. Summary: Patient's care plan and retirement goals have been reviewed and revised as necessary. Please see the Rehabilitation Signature page for all necessary signatures.
[2022-02-02] MEDS: MAGNESIUM HYDROXIDE 8% 30 ML PO PRN (15:31)
[2022-02-02] MEDS: GABAPENTIN 300 MG CAP PO SCH (20:46)
[2022-02-02] MEDS: ATORVASTATIN 40 MG TAB PO SCH (20:46)
[2022-02-02] MEDS: DOCUSATE NA/SENNA CONC 1 TAB PO PRN (20:47)
[2022-02-02] MEDS ORDERED: MELATONIN 3 MG TABLET PO PRN (22:25)
[2022-02-03] MEDS: PANTOPRAZOLE 40MG TABLET PO SCH (07:25)
[2022-02-03] MEDS: FOLBIC 1 TAB PO SCH (08:12)
[2022-02-03] MEDS: CRANBERRY FRUIT EXTRACT 400 MG CAP PO SCH ×2 (08:12→19:35)
[2022-02-03] MEDS: ENSURE HIGH PROTEIN 237 ML CAN PO SCH ×2 (08:12→19:36)
[2022-02-03] MEDS: lisinopriL 20 MG TAB PO SCH ×2 (08:14→19:36)
[2022-02-03] MEDS: SOLIFENACIN SUCCIN 5 MG TAB PO SCH (08:14)
[2022-02-03] MEDS: FERROUS SULFATE 325 MG TAB PO SCH (08:15)
[2022-02-03] MEDS: AMLODIPINE 5 MG TAB PO SCH (08:15)
[2022-02-03] MEDS: DESVENLAFAXINE SUCCINATE 50 MG ER TAB PO SCH (08:16)
[2022-02-03] MEDS: APIXABAN 2.5 MG TABLET PO SCH ×2 (08:17→19:35)
[2022-02-03] MEDS: MELOXICAM 7.5 MG TAB PO SCH (08:18)
[2022-02-03] MEDS: NEUPRO 6 MG TOP SCH (08:18)
[2022-02-03] MEDS: ATORVASTATIN 40 MG TAB PO SCH (19:36)
[2022-02-03] MEDS: GABAPENTIN 300 MG CAP PO SCH (19:37)
[2022-02-04] MEDS: PANTOPRAZOLE 40MG TABLET PO SCH (07:04)
[2022-02-04 07:28] VITALS: BP 146/70; TEMP 98.6
[2022-02-04] MEDS: APIXABAN 2.5 MG TABLET PO SCH (08:31)
[2022-02-04] MEDS: lisinopriL 20 MG TAB PO SCH (08:32)
[2022-02-04] MEDS: AMLODIPINE 5 MG TAB PO SCH (08:32)
[2022-02-04] MEDS: MELOXICAM 7.5 MG TAB PO SCH (08:33)
[2022-02-04] MEDS: DESVENLAFAXINE SUCCINATE 50 MG ER TAB PO SCH (08:33)
[2022-02-04] MEDS: FERROUS SULFATE 325 MG TAB PO SCH (08:33)
[2022-02-04] MEDS: FOLBIC 1 TAB PO SCH (08:34)
[2022-02-04] MEDS: NEUPRO 6 MG TOP SCH (08:34)
[2022-02-04] MEDS: ENSURE HIGH PROTEIN 237 ML CAN PO SCH (08:34)
[2022-02-04] MEDS: CRANBERRY FRUIT EXTRACT 400 MG CAP PO SCH (08:34)
[2022-02-04] MEDS: SOLIFENACIN SUCCIN 5 MG TAB PO SCH (08:34)
== END 2022-02-04 14:00 | disposition home or self-care (01) | DRG 948 ==
LOC: 5TH 18:49
PROVIDERS: ADMIT Psychiatry & Neurology Neurology with Special Qualifications in Child Neurology; ATTEND Psychiatry & Neurology Neurology with Special Qualifications in Child Neurology
DX: R53.81 Other malaise (principal); Z87.440 Personal history of urinary (tract) infections; I10 Essential (primary) hypertension; G25.81 Restless legs syndrome; I25.10 Atherosclerotic heart disease of native coronary artery without angina pectoris; F32.A Depression, unspecified; M19.90 Unspecified osteoarthritis, unspecified site; G47.30 Sleep apnea, unspecified; K21.9 Gastro-esophageal reflux disease without esophagitis; Z95.1 Presence of aortocoronary bypass graft; Z20.822 Contact with and (suspected) exposure to COVID-19
CPT/HCPCS: 36415; 80048; 81003; 81015; 82040; 83735; 84134; 85025; 87086; 87088; 97110; 97112; 97116; 97161; 97530; U0003

== ENCOUNTER 2022-03-01 13:14 | Emergency (ER) | payer OTHER, MEDICARE ==
--- NOTE | 2022-03-01 14:09 | RAD REPORT ---
EXAM DESCRIPTION: CT - [id number] - 03/01/2022 1:54 pm CLINICAL HISTORY: Trauma, head and neck injury. head injury COMPARISON: Chest Single View dated 01/20/2022; Pelvis dated 01/20/2022; Head Brain Wo Cont dated 01/20 TECHNIQUE: Axial 5 mm thick images of the head were obtained. Axial 2 mm thick images of the cervical spine were obtained with sagittal and coronal reconstruction images generated and reviewed. All CT scans are performed using dose optimization technique as appropriate and may include automated exposure control or mA/KV adjustment according to patient size. FINDINGS: CT HEAD WITHOUT CONTRAST: No acute hemorrhage, hydrocephalus or extra-axial collection is identified.Moderate generalized brain atrophy is present with mild periventricular and deep white matter chronic microvascular ischemic ch anges.No areas of brain edema or midline shift. Mild fluid is seen in the sphenoid sinus. The paranasal sinuses and mastoids otherwise clear.The calv arium is intact. CT CERVICAL SPINE WITHOUT CONTRAST: There is discontinuity of the C1 ring along the anterior arch as well as right posterior arch which l ikely represent fractures.Moderate spondylosis is present throughout the cervical spine.No prevertebr al soft tissues swelling is identified. Mild atherosclerosis of both carotid arteries. IMPRESSION: No acute intracranial findings. Fracture the C1 arch is noted anteriorly and along the right as detailed. The findings were discussed with Dr Salazar on 03/01/2022 at 2:05 p.m. by telephone.
[2022-03-01 14:43] LABS: Absolute Lymphocytes (CBC) 2.6 K/uL (0.7-4.9); Hematocrit 34.3 % (36.0-45.0); Lymphocytes % 33.7 % (15.3-44.8); MPV 8.6 fL (7.6-11.3); RBC Red Blood Cell Count 3.77 M/uL (3.86-4.86)
[2022-03-01 15:00] LABS: Potassium 4.3 mmol/L (3.5-5.1)
--- NOTE | 2022-03-01 15:15 | ER ---
Nurse's Notes [facility] Name: Darlyn Nicole Age: 82 yrs Sex: Female : 1940 Arrival Date: 03/01/2022 Time: 13:39 Bed 13 Private MD: Diagnosis: Fall on same level from slipping, tripping and stumbling without subsequent striking against object;Unspecified injury of head, initial encounter;Fracture of C1 arch Presentation: 03/01 13:48 Chief complaint: Patient states: Walking out of the back door in the garage and tripped ww and fell. Small laceration on frontal regional of the scalp and small abrasion on left eye. Patient denies any LOC. Admits to soreness on left side where she fell. Able to perform passive ROM. Coronavirus screen: Client denies travel out of the [place] in the last 14 days. Ebola Screen: Patient denies travel to an Ebola-affected area in the 21 days before illness onset. Initial Sepsis Screen: Does the patient meet any 2 criteria? No. Patient's initial sepsis screen is negative. Does the patient have a suspected source of infection? No. Patient's initial sepsis screen is negative. Risk Assessment: Do you want to hurt yourself or someone else? Patient reports no desire to harm self or others. Onset of symptoms was March 01, 2022. 13:48 Method Of Arrival: EMS: [facility] 13:48 Acuity: JOSEFINA 3 ww Triage Assessment: 13:53 General: Appears in no apparent distress. Behavior is cooperative. Pain: Complains of ww pain in face, left arm and left leg. EENT: Neuro: Mccullough Agitation-Sedation Scale (RASS): 0 - Alert and Calm Level of Consciousness is awake, alert, obeys commands, Oriented to person, place, time, situation, Placement Officer are equal bilaterally Moves all extremities. Speech is normal, Pupils are PERRLA. Cardiovascular: Capillary refill < 3 seconds Patient's skin is warm and dry. Chest pain is denied. Respiratory: Airway is patent Respiratory effort is even, unlabored, Respiratory pattern is regular, symmetrical. GI: No signs and/or symptoms were reported involving the gastrointestinal system. : No signs and/or symptoms were reported regarding the genitourinary system. Derm: Skin is fragile, is thin, small laceration to top of the forehead/scalp and small abrasion on left eyebrow and small abrasion on left george. Musculoskeletal: Circulation, motion, and sensation intact. Range of motion: intact in all extremities. Historical: - Allergies: 13:53 Amoxicillin; ww 13:53 Macrobid; ww 13:53 Metoprolol Tartrate; ww 13:53 rosuvastatin; ww - PMHx: 13:53 CAD; syncope; restless leg syndrome; Osteopenia; osteoarthritis; Hypercholesterolemia; ww depressive disorder; Sleep Apnea; - PSHx: 13:53 CABG; ww - Social history:: Smoking status: Patient denies any tobacco usage or history of. Screenin:56 Abuse screen: Denies threats or abuse. Denies injuries from another. Nutritional ww screening: No deficits noted. Tuberculosis screening: No symptoms or risk factors identified. Fall Risk Fall in past 12 months (25 points). No secondary diagnosis (0 pts). No IV (0 pts). Ambulatory Aid- None/Bed Rest/Nurse Assist (0 pts). Gait- Normal/Bed Rest/Wheelchair (0 pts) Mental Status- Oriented to own ability (0 pts). Total Forrester Fall Scale indicates Low Risk Score (25-44 pts). Fall prevention measures have been instituted. Side Rails Up X 2 Placed close to Nursing Station 1:1 attendant Assigned to Pt. Frequent Obs/Assesments occuring Family Present and informed to notify staff if they need to leave bedside As available Patient and Family Educated on Fall Prevention Program and strategies. Assessment: 13:56 Reassessment: Patient appears in no apparent distress at this time. No changes from ww previously documented assessment. Patient and/or family updated on plan of care and expected duration. Pain level reassessed. Patient is alert, oriented x 3, equal unlabored respirations, skin warm/dry/pink. see triage assessment. 14:20 Reassessment: Patient appears in no apparent distress at this time. No changes from ww previously documented assessment. Patient and/or family updated on plan of care and expected duration. Pain level reassessed. C-Collar applied. Family at bedside. 15:35 Reassessment: Patient appears in no apparent distress at this time. No changes from ww previously documented assessment. Patient and/or family updated on plan of care and expected duration. Pain level reassessed. Patient is alert, oriented x 3, equal unlabored respirations, skin warm/dry/pink. 15:58 Neuro: Level of Consciousness is awake, alert, obeys commands, Oriented to person, ww place, time, situation, Placement Officer are equal bilaterally Moves all extremities. Speech is normal, Intact. 16:08 Reassessment: Report given to [facility]. ww Vital Signs: 13:48 BP 163 / 65; Pulse 74; Resp 16; Temp 97.8; Pulse Ox 100% ; Weight 61.23 kg; Height 5 ww ft. 5 in. (165.10 cm); Pain 4/10; 14:00 BP 164 / 60; Pulse 67; Resp 18; Pulse Ox 100% on R/A; ww 13:48 Body Mass Index 22.46 (61.23 kg, 165.10 cm) ww ED Course: 13:39 Patient arrived in ED. ww 13:42 [facility]. kb 13:42 Rinku Salazar MD is Attending Physician. kb 13:48 Nimisha Rushing RN is Primary Nurse. ww 13:53 Triage completed. ww 13:56 CT Head C Spine In Process Unspecified. EDMS 13:56 Arm band placed on. ww 13:56 Patient has correct armband on for positive identification. Bed in low position. Call ww light in reach. Side rails up X2. 14:21 initiated a transfer with Suzanne Andrews Rn from the [facility]. 14:30 Inserted saline lock: 20 gauge in left antecubital area, using aseptic technique. Blood zm collected. 14:31 Basic Metabolic Panel Sent. zm 14:31 CBC with Diff Sent. zm 14:31 COVID-19 SARS RT PCR (Document "Date of Onset" if Symptomatic) Sent. zm 15:01 administrative approval given by Suzanne Andrews Rn/ patient has been accepted to [facility] ER. Dr. Hal Lozoya has accepted the patient in transfer without conference with provider/ report to be called to [phone]/. 16:20 No provider procedures requiring assistance completed. Patient transferred, IV remains ww in place. Administered Medications: 15:25 Drug: morphine 2 mg Route: IVP; Infused Over: 4 mins; Site: left antecubital; ww 15:33 Drug: Zofran (Ondansetron) 4 mg Route: IVP; Site: left antecubital; ww Outcome: 15:14 ER care complete, transfer ordered by MD. gonzalez 16:20 Transferred by ground EMS to [facility]. ww 16:20 Condition: stable 16:20 Instructed on the need for transfer. 16:21 Patient left the ED. ww Signatures: Dispatcher [employer] EDJess Pierson, Libby Uribe Whitney, RN RN Aminata Blankenship
--- NOTE | 2022-03-01 15:15 | EDPHYS ---
Physician Documentation [facility] Name: Darlyn Nicole Age: 82 yrs Sex: Female : 1940 Arrival Date: 03/01/2022 Time: 13:39 Bed 13 Private MD: ED Physician Rinku Salazar HPI: 03/01 15:20 This 82 yrs old Female presents to ER via EMS with complaints of fall, laceration to kb head. 15:20 Details of fall: The patient fell from an upright position, while walking. Onset: The kb symptoms/episode began/occurred just prior to arrival. Associated injuries: The patient sustained injury to the head, laceration, neck injury, pain, "very little", left george, abrasion. Severity of symptoms: At their worst the symptoms were mild, in the emergency department the symptoms are unchanged. The patient has not experienced similar symptoms in the past. The patient has not recently seen a physician. 15:21 Pt tripped and fell when walking in the garage. Hit head causing laceration to top of kb head. Denies loc, dizziness, headache. . Historical: - Allergies: 13:53 Amoxicillin; ww 13:53 Macrobid; ww 13:53 Metoprolol Tartrate; ww 13:53 rosuvastatin; ww - PMHx: 13:53 CAD; syncope; restless leg syndrome; Osteopenia; osteoarthritis; Hypercholesterolemia; ww depressive disorder; Sleep Apnea; - PSHx: 13:53 CABG; ww - Social history:: Smoking status: Patient denies any tobacco usage or history of. ROS: 15:17 Constitutional: Negative for fever, chills, and weight loss. kb 15:17 Neck: Positive for pain at rest. 15:17 Skin: Positive for laceration(s), of the top of head. 15:17 All other systems are negative. Exam: 15:19 Constitutional: This is a well developed, well nourished patient who is awake, alert, kb and in no acute distress. Head/Face: Normocephalic, atraumatic. ENT: Moist Mucous membranes Chest/axilla: Normal chest wall appearance and motion. Cardiovascular: Regular rate and rhythm with a normal S1 and S2. No gallops, murmurs, or rubs. No pulse deficits. Respiratory: Respirations even and unlabored. No increased work of breathing. Talking in full sentences Abdomen/GI: Soft, non-tender. No distention Back: No spinal tenderness. No costovertebral tenderness. Full range of motion. MS/ Extremity: Pulses equal, no cyanosis. Neurovascular intact. Full, normal range of motion. Neuro: Awake and alert, GCS 15, oriented to person, place, time, and situation. Moves all extremities. Normal gait. Psych: Awake, alert, with orientation to person, place and time. Behavior, mood, and affect are within normal limits. 15:19 Neck: External neck: is normal, C-spine: C-collar placed in ED, vertebral tenderness, that is mild, diffusely. 15:19 Skin: injury, abrasion(s), small abrasion noted, of the left george, laceration(s), the wound is approximately 0.25 cm(s), of the top of head, that can be described as clean, no foreign body, linear, without bleeding. Vital Signs: 13:48 BP 163 / 65; Pulse 74; Resp 16; Temp 97.8; Pulse Ox 100% ; Weight 61.23 kg; Height 5 ww ft. 5 in. (165.10 cm); Pain 4/10; 14:00 BP 164 / 60; Pulse 67; Resp 18; Pulse Ox 100% on R/A; ww 13:48 Body Mass Index 22.46 (61.23 kg, 165.10 cm) ww MDM: 13:43 Patient medically screened. kb 15:17 Data reviewed: vital signs, nurses notes. Data interpreted: Pulse oximetry: on room air kb is 100 %. Interpretation: normal. Counseling: I had a detailed discussion with the patient and/or guardian regarding: the historical points, exam findings, and any diagnostic results supporting the discharge/admit diagnosis, radiology results, the need to transfer to another facility, for higher level of care, [facility] does not immediately have the required specialist. ED course: Pt accepted to [facility] without conference. . 03/01 14:11 Order name: COVID-19 SARS RT PCR (Document "Date of Onset" if Symptomatic); Complete kb Time: 16:08 03/01 14:11 Order name: Basic Metabolic Panel; Complete Time: 15:01 kb 03/01 13:46 Order name: CT Head C Spine; Complete Time: 14:13 kb 03/01 14:11 Order name: CBC with Diff; Complete Time: 14:50 kb 03/01 14:11 Order name: Labs collected and sent; Complete Time: 14:31 kb 03/01 14:15 Order name: C-Collar; Complete Time: 14:15 iw Administered Medications: 15:25 Drug: morphine 2 mg Route: IVP; Infused Over: 4 mins; Site: left antecubital; ww 15:33 Drug: Zofran (Ondansetron) 4 mg Route: IVP; Site: left antecubital; ww Disposition Summary: 03/01/22 15:14 Transfer Ordered Transfer Location: [facility] kb Reason: Higher level of care kb Condition: Stable kb Problem: new kb Symptoms: are unchanged kb Accepting Physician: Dr Lozoya(03/01/22 16:21) ww Diagnosis - Fall on same level from slipping, tripping and stumbling without subsequent kb striking against object - Unspecified injury of head, initial encounter kb - Fracture of C1 arch kb Forms: - Medication Reconciliation Form kb - SBAR form kb Signatures: Dispatcher [employer] EDMS Jess Corona, TWILL CUTTER-C TWILL CUTTER-Valeria Rodríguez, RN RN iw Nimisha Rushing, RN RN ww Corrections: (The following items were deleted from the chart) 15:15 15:14 Dr Devora gonzalez kb 16:21 15:15 Dr Devora gonzalez ww
[2022-03-01] MEDS ORDERED: MORPHINE 2 MG/ML SYR ONE (15:30)
[2022-03-01] MEDS ORDERED: ONDANSETRON 4 MG/2 ML VIAL ONE (15:30)
[2022-03-01 17:00] VITALS: TEMP 97.8; O2SAT 100
[2022-03-01 17:02] VITALS: BP 164/60
== END 2022-03-01 16:21 | disposition short-term general hospital (02) ==
LOC: ER 13:14
DX: S01.81XA Laceration without foreign body of other part of head, initial encounter (principal); S12.030A Displaced posterior arch fracture of first cervical vertebra, initial encounter for closed fracture; W01.0XXA Fall on same level from slipping, tripping and stumbling without subsequent striking against object, initial encounter; Z20.822 Contact with and (suspected) exposure to COVID-19; Z88.1 Allergy status to other antibiotic agents; Z88.8 Allergy status to other drugs, medicaments and biological substances; Z95.1 Presence of aortocoronary bypass graft
CPT/HCPCS: 85025; 80048; 36415; 70450; 72125; 96375; 96374; 99285; U0003; J2270; J2405

== ENCOUNTER 2022-03-09 20:53 | Emergency (ER) | payer OTHER, MEDICARE ==
[2022-03-09] MEDS ORDERED: BISACODYL 10 MG RECTAL SUPP ONE (22:39)
[2022-03-09] MEDS ORDERED: NA CHLORIDE 0.9% 1,000 ML ONE (22:39)
[2022-03-09] MEDS ORDERED: LACTULOSE 20 GM/30 ML UCUP ONE (22:39)
[2022-03-09 22:45] LABS: Urine Blood Trace-intact (Negative); Urine Glucose Negative (Negative); Urine Protein Negative (Negative); Urine Specific Gravity 1.015 (1.005-1.030); Urine pH 7.5 (5.0-7.0)
[2022-03-09] MEDS ORDERED: CEFTRIAXONE 1000 MG/VIAL ONE (23:17)
[2022-03-09] MEDS ORDERED: CIPROFLOXACIN HCL 500 MG TAB ONE (23:17)
[2022-03-09 23:30] LABS: Absolute Lymphocytes (CBC) 2.7 K/uL (0.7-4.9); Hematocrit 37.3 % (36.0-45.0); Lymphocytes % 23.6 % (15.3-44.8); MCV 92.2 fL (80-100); MPV 8.3 fL (7.6-11.3); RBC Red Blood Cell Count 4.04 M/uL (3.86-4.86)
[2022-03-10] LABS: Albumin 3.5 g/dL (3.4-5.0); Bilirubin Total 0.3 mg/dL (0.2-1.0); Potassium 4.4 mmol/L (3.5-5.1)
--- NOTE | 2022-03-10 00:33 | ER ---
Nurse's Notes [facility] Name: Darlyn Nicole Age: 82 yrs Sex: Female : 1940 Arrival Date: 03/09/2022 Time: 20:57 Bed 6 Private MD: Diagnosis: Constipation;Abdominal tenderness;UTI/ Urinary tract infection, site not specified;Unspecified kidney failure Presentation: 03/09 21:15 Chief complaint: Patient states: "I am severely constipated. We have tried all the home tw5 remedies. We used apple juice and we used suppository and nothing has worked.". Coronavirus screen: Vaccine status: Patient reports receiving the 2nd dose of the covid vaccine. Moderna. Ebola Screen: Patient negative for fever greater than or equal to 101.5 degrees Fahrenheit, and additional compatible Ebola Virus Disease symptoms Patient denies exposure to infectious person. Patient denies travel to an Ebola-affected area in the 21 days before illness onset. Initial Sepsis Screen: Does the patient meet any 2 criteria? No. Patient's initial sepsis screen is negative. Does the patient have a suspected source of infection? No. Patient's initial sepsis screen is negative. Risk Assessment: Do you want to hurt yourself or someone else? Patient reports no desire to harm self or others. Onset of symptoms was March 07, 2022. 21:15 Method Of Arrival: Ambulatory tw5 21:15 Acuity: JOSEFINA 3 tw5 Triage Assessment: 21:17 General: Appears uncomfortable, Behavior is calm, cooperative, appropriate for age. tw5 Pain: Pain currently is 4 out of 10 on a pain scale. GI: Reports constipation. Historical: - Allergies: 21:17 Amoxicillin; tw 21:17 Macrobid; tw 21:17 Metoprolol Tartrate; tw 21:17 rosuvastatin; tw5 - Home Meds: 03/10 00:17 Triamterene-Hydrochlorothiazid Oral [Active]; solifenacin Oral [Active]; Myrbetriq Oral kd3 [Active]; Omeprazole Oral [Active]; meloxicam Oral [Active]; gabapentin Oral [Active]; lisinopril Oral [Active]; atorvastatin Oral [Active]; Desmopressin Acetate Nasal [Active]; amlodipine oral [Active]; - PMHx: 03/09 21:17 CAD; Hypercholesterolemia; Osteopenia; osteoarthritis; depressive disorder; restless tw5 leg syndrome; Sleep Apnea; syncope; - PSHx: 21:17 CABG; tw5 - Immunization history:: Flu vaccine is not up to date. - Social history:: Smoking status: Patient denies any tobacco usage or history of. - Family history:: not pertinent. Screenin:46 Abuse screen: Denies threats or abuse. Denies injuries from another. Nutritional kd3 screening: No deficits noted. Tuberculosis screening: No symptoms or risk factors identified. Fall Risk IV access (20 points). Assessment: 03/10 00:16 General: Appears in no apparent distress. Behavior is calm, cooperative. Neuro: Level kd3 of Consciousness is awake, alert, obeys commands, Oriented to person, place, time, situation. Respiratory: Airway is patent Trachea midline Respiratory effort is even, unlabored, Respiratory pattern is regular, symmetrical. GI: Bowel sounds present X 4 quads. Abd is soft Abdomen is tender to palpation in suprapubic area, right lower quadrant and left lower quadrant Reports constipation. Vital Signs: 03/09 21:15 BP 133 / 90; Pulse 90; Resp 18; Temp 98.2; Pulse Ox 97% on R/A; Weight 60.33 kg; Height tw5 5 ft. 5 in. (165.10 cm); Pain 4/10; 03/10 00:41 BP 132 / 81; Pulse 84; Resp 19; Pulse Ox 100% on R/A; kd3 03/09 21:15 Body Mass Index 22.13 (60.33 kg, 165.10 cm) tw5 ED Course: 03/09 20:57 Patient arrived in ED. bp1 21:17 Triage completed. tw5 21:17 Arm band placed on. tw5 21:32 Stephanie Leonardo, SEDRICK is Primary Nurse. kd3 21:38 Rinku Salazar MD is Attending Physician. yue 23:10 Urine Culture Sent. kd3 03/10 00:19 Patient has correct armband on for positive identification. kd3 00:33 Irina Corona MD is Referral Physician. yue 00:33 Ayesha Alexander MD is Referral Physician. yue 00:38 Abdomen In Process Unspecified. EDMS 00:40 No provider procedures requiring assistance completed. IV discontinued, intact, kd3 bleeding controlled, No redness/swelling at site. Pressure dressing applied. Administered Medications: 03/09 22:40 Drug: NS 0.9% 1000 ml Route: IV; Rate: 1 bolus; Site: left antecubital; kd3 03/10 00:41 Follow up: Response: No adverse reaction; IV Status: Completed infusion kd3 03/09 22:40 Drug: Lactulose 60 grams Volume: 45 ml; Route: PO; kd3 03/10 00:41 Follow up: Response: No adverse reaction kd3 03/09 22:40 Drug: Dulcolax (bisacodyl) Suppository 10 mg Route: AR; kd3 03/10 00:41 Follow up: Response: No adverse reaction kd3 03/09 23:21 Drug: Rocephin (cefTRIAXone) 1 grams Route: IV; Rate: per protocol; Site: left kd3 antecubital; 03/10 00:41 Follow up: Response: No adverse reaction; IV Status: Completed infusion kd3 03/09 23:21 Drug: Cipro (ciprofloxacin) 500 mg Route: PO; kd3 03/10 00:41 Follow up: Response: No adverse reaction kd3 Medication: 00:17 VIS not applicable for this client. kd3 Outcome: 00:33 Discharge ordered by MD. turner 00:40 Discharged to home ambulatory, with friend. kd3 00:40 Condition: stable 00:40 Discharge instructions given to patient, friend, Instructed on discharge instructions, follow up and referral plans. medication usage, Demonstrated understanding of instructions, follow-up care, medications, Prescriptions given X 4. 00:42 Patient left the ED. kd3 Signatures: Dispatcher [employer] EDHI Rinku Salazar MD MD cha Paniauga, Brittany bp1 Wood, Tiffany tw5 Stephanie Leonardo RN RN kd3 Corrections: (The following items were deleted from the chart) 03/09 21:26 21:15 BP 133 / 90; Pulse 90bpm; Resp 98bpm; Pulse Ox 97% RA; Temp 98.2F; 60.33 kg; tw5 Height 5 ft. 5 in.; BMI: 22.1; Pain 4/10; tw5
--- NOTE | 2022-03-10 00:34 | EDPHYS ---
Physician Documentation [facility] Name: Darlyn Nicole Age: 82 yrs Sex: Female : 1940 Arrival Date: 03/09/2022 Time: 20:57 Bed 6 Private MD: ED Physician Rinku Salazar HPI: 03/09 22:51 This 82 yrs old Female presents to ER via Ambulatory with complaints of yue Constipation. 22:51 The patient presents with abdominal pain in the lower abdomen, abdominal distention in yue the lower abdomen. Onset: The symptoms/episode began/occurred 2 day(s) ago. The symptoms do not radiate. Associated signs and symptoms: none. The symptoms are described as crampy. Modifying factors: The symptoms are alleviated by nothing, the symptoms are aggravated by no bm. Severity of pain: At its worst the pain was mild moderate in the emergency department the pain is unchanged. The patient has not experienced similar symptoms in the past. Historical: - Allergies: 21:17 Amoxicillin; tw5 21:17 Macrobid; tw5 21:17 Metoprolol Tartrate; tw 21:17 rosuvastatin; tw5 - Home Meds: 03/10 00:17 Triamterene-Hydrochlorothiazid Oral [Active]; solifenacin Oral [Active]; Myrbetriq Oral kd3 [Active]; Omeprazole Oral [Active]; meloxicam Oral [Active]; gabapentin Oral [Active]; lisinopril Oral [Active]; atorvastatin Oral [Active]; Desmopressin Acetate Nasal [Active]; amlodipine oral [Active]; - PMHx: 03/09 21:17 CAD; Hypercholesterolemia; Osteopenia; osteoarthritis; depressive disorder; restless tw5 leg syndrome; Sleep Apnea; syncope; - PSHx: 21:17 CABG; tw5 - Immunization history:: Flu vaccine is not up to date. - Social history:: Smoking status: Patient denies any tobacco usage or history of. - Family history:: not pertinent. ROS: 22:51 Constitutional: Negative for fever, chills, and weight loss, Eyes: Negative for injury, yue pain, redness, and discharge, ENT: Negative for injury, pain, and discharge, Neck: Negative for injury, pain, and swelling, Cardiovascular: Negative for chest pain, palpitations, and edema, Respiratory: Negative for shortness of breath, cough, wheezing, and pleuritic chest pain, Back: Negative for injury and pain, : Negative for injury, bleeding, discharge, and swelling, MS/Extremity: Negative for injury and deformity, Skin: Negative for injury, rash, and discoloration, Neuro: Negative for headache, weakness, numbness, tingling, and seizure, Psych: Negative for depression, anxiety, suicide ideation, homicidal ideation, and hallucinations, Allergy/Immunology: Negative for hives, rash, and allergies, Endocrine: Negative for neck swelling, polydipsia, polyuria, polyphagia, and marked weight changes, Hematologic/Lymphatic: Negative for swollen nodes, abnormal bleeding, and unusual bruising. 22:51 Abdomen/GI: Positive for abdominal pain, constipation, abdominal cramps, of the right lower quadrant and left lower quadrant. Exam: 22:51 Constitutional: This is a well developed, well nourished patient who is awake, alert, yue and in no acute distress. Head/Face: Normocephalic, atraumatic. Eyes: Pupils equal round and reactive to light, extra-ocular motions intact. Lids and lashes normal. Conjunctiva and sclera are non-icteric and not injected. Cornea within normal limits. Periorbital areas with no swelling, redness, or edema. ENT: Nares patent. No nasal discharge, no septal abnormalities noted. Tympanic membranes are normal and external auditory canals are clear. Oropharynx with no redness, swelling, or masses, exudates, or evidence of obstruction, uvula midline. Mucous membranes moist. Neck: Trachea midline, no thyromegaly or masses palpated, and no cervical lymphadenopathy. Supple, full range of motion without nuchal rigidity, or vertebral point tenderness. No Meningismus. Chest/axilla: Normal chest wall appearance and motion. Nontender with no deformity. No lesions are appreciated. Cardiovascular: Regular rate and rhythm with a normal S1 and S2. No gallops, murmurs, or rubs. Normal PMI, no JVD. No pulse deficits. Respiratory: Lungs have equal breath sounds bilaterally, clear to auscultation and percussion. No rales, rhonchi or wheezes noted. No increased work of breathing, no retractions or nasal flaring. Back: No spinal tenderness. No costovertebral tenderness. Full range of motion. Female : Normal external genitalia. Skin: Warm, dry with normal turgor. Normal color with no rashes, no lesions, and no evidence of cellulitis. MS/ Extremity: Pulses equal, no cyanosis. Neurovascular intact. Full, normal range of motion. Neuro: Awake and alert, GCS 15, oriented to person, place, time, and situation. Cranial nerves II-XII grossly intact. Motor strength 5/5 in all extremities. Sensory grossly intact. Cerebellar exam normal. Normal gait. Psych: Awake, alert, with orientation to person, place and time. Behavior, mood, and affect are within normal limits. 22:51 Abdomen/GI: Inspection: abdomen appears normal, Bowel sounds: normal, Palpation: mild abdominal tenderness, in the right lower quadrant and left lower quadrant, Liver: no appreciated palpable abnormalities, Hernia: not appreciated. Vital Signs: 21:15 BP 133 / 90; Pulse 90; Resp 18; Temp 98.2; Pulse Ox 97% on R/A; Weight 60.33 kg; Height tw5 5 ft. 5 in. (165.10 cm); Pain 4/10; 03/10 00:41 BP 132 / 81; Pulse 84; Resp 19; Pulse Ox 100% on R/A; kd3 03/09 21:15 Body Mass Index 22.13 (60.33 kg, 165.10 cm) tw5 MDM: 03/09 21:38 Patient medically screened. yue 22:55 Differential diagnosis: Cholelithiasis, diverticulitis, non-specific abd pain, yue pancreatitis, urinary tract infection. Data reviewed: vital signs, nurses notes, lab test result(s), radiologic studies, CT scan. Data interpreted: lunchroom monitor: rate is 90 beats/min, rhythm is regular, Pulse oximetry: on room air is 97 %. Test interpretation: by ED physician or midlevel provider: ECG, plain radiologic studies. Counseling: I had a detailed discussion with the patient and/or guardian regarding: the historical points, exam findings, and any diagnostic results supporting the discharge/admit diagnosis, lab results, radiology results, the need for outpatient follow up, for definitive care, a family practitioner, a cargo worker. 03/09 21:43 Order name: CBC with Diff; Complete Time: 23:35 [facility] 03/09 21:43 Order name: CMP; Complete Time: 00:01 yue 03/09 21:43 Order name: Lipase; Complete Time: 00:01 [facility] 03/09 22:45 Order name: Urine Dipstick-Ancillary; Complete Time: 22:49 [facility] 03/09 22:50 Order name: Urine Culture [facility] 03/09 21:43 Order name: IV Saline Lock; Complete Time: 22:40 [facility] 03/09 21:43 Order name: Labs collected and sent; Complete Time: 22:40 [facility] 03/09 23:22 Order name: Abdomen [facility] 03/09 21:43 Order name: Urine Dipstick-Ancillary (obtain specimen); Complete Time: 22:40 [facility] Administered Medications: 22:40 Drug: NS 0.9% 1000 ml Route: IV; Rate: 1 bolus; Site: left antecubital; [facility] 03/10 00:41 Follow up: Response: No adverse reaction; IV Status: Completed infusion [facility] 03/09 22:40 Drug: Lactulose 60 grams Volume: 45 ml; Route: PO; 3 03/10 00:41 Follow up: Response: No adverse reaction [facility] 03/09 22:40 Drug: Dulcolax (bisacodyl) Suppository 10 mg Route: CA; 3 03/10 00:41 Follow up: Response: No adverse reaction [facility] 03/09 23:21 Drug: Rocephin (cefTRIAXone) 1 grams Route: IV; Rate: per protocol; Site: left [facility] antecubital; 03/10 00:41 Follow up: Response: No adverse reaction; IV Status: Completed infusion [facility] 03/09 23:21 Drug: Cipro (ciprofloxacin) 500 mg Route: PO; 3 03/10 00:41 Follow up: Response: No adverse reaction [facility] Disposition Summary: 03/10/22 00:33 Discharge Ordered Location: Home yue Problem: new yue Symptoms: have improved yue Condition: Stable yue Diagnosis - Constipation yue - Abdominal tenderness yue - UTI/ Urinary tract infection, site not specified yue - Unspecified kidney failure yue Followup: yue - With: Private Physician - When: 2 - 3 days - Reason: Recheck today's complaints, Continuance of care, Re-evaluation by your physician Followup: yue - With: - When: 2 - 3 days - Reason: Recheck today's complaints, Re-evaluation by your physician Followup: yue - With: - When: 2 - 3 days - Reason: Recheck today's complaints, Continuance of care, Re-evaluation by your physician Discharge Instructions: - Discharge Summary Sheet yue - Abdominal Pain, Adult yue - Constipation, Adult yue - Constipation, Adult, [id number] yue - Urinary Tract Infection, Adult yue - Urinary Tract Infection, Adult, [id number] yue - Abdominal Pain, Adult, [id number] yue - Chronic Kidney Disease, Adult, [id number] yue Forms: - Medication Reconciliation Form [facility] - Thank You Letter yue - Antibiotic Education [facility] - Prescription Opioid Use [facility] Prescriptions: - Lactulose 10 gram/15 mL Oral Solution - take 30 milliliters by ORAL route once daily; 300 milliliter; Refills: 0, [facility] Product Selection Permitted - dicyclomine 20 mg Oral Tablet - take 1 tablet by ORAL route 4 times per day; 28 tablet; Refills: 0, Product yue Selection Permitted - Dulcolax (bisacodyl) 10 mg Rectal suppository - insert 1 suppository by RECTAL route every 12 hours; 14 suppository; Refills: yue 0, Product Selection Permitted - Cipro 250 mg Oral Tablet - take 1 tablet by ORAL route every 12 hours; 14 tablet; Refills: 0, Product yue Selection Permitted Signatures: Dispatcher [employer] Rinku Hernandez MD MD cha Wood, Tiffany tw5 Stephanie Leonardo RN RN kd3 Corrections: (The following items were deleted from the chart) 03/09 23:22 21:47 Abdomen Pelvis W [id number] ordered. EDMS EDMS
[2022-03-10 01:37] VITALS: TEMP 98.2
[2022-03-10 01:42] VITALS: BP 132/81; O2SAT 100
--- NOTE | 2022-03-10 12:44 | RAD REPORT ---
EXAM DESCRIPTION: CT - Abdomen Pelvis Wo Contrast - 03/10/2022 6:30 am CLINICAL HISTORY: 82 years, Female, Abdominal pain, acute, nonlocalized COMPARISON: None. TECHNIQUE: Multiple transaxial tomograms of the abdomen and pelvis were performed from the lung base s to the symphysis pubis 5 mm slice thickness at 5 mm interval reconstruction, without administration of IV contrast. On the oral contrast was given Multiplanar reformats in the sagittal and coronal plane were generated and reviewed. This exam was performed according to our departmental dose-optimization protocol, which includes auto mated exposure control, adjustment of the mA and/or kV according to patient size and/or use of iterat brianne reconstruction technique. FINDINGS: The lack of IV contrast limits evaluation of solid organs, subtle lesions cannot be exclud ed. The lung bases demonstrate very minimal dependent atelectatic changes posterior CP angles. Sternotomy wires suggest previous CABG. There are coronary artery calcification. Moderate size at the hernia wi th the contrast along the distal esophagus related to gastroesophageal reflux disease. Grossly the unopacified liver, gallbladder, pancreas, spleen and adrenal glands demonstrate to be wit hin normal limits, no significant focal lesions were identified. The kidneys demonstrate grossly unremarkable. There is no evidence for nephrolithiasis and/or hydro nephrosis. No focal masses were demonstrated. There is mild calyectasis related to distended urinar y bladder. The opacified stomach, small bowel and large bowel demonstrate to be within normal limits. There is n o evidence for bowel dilatation/or free air. There is fecal residue throughout the large bowel corres ponding to constipation. The urinary bladder demonstrate to be distended with no gross abnormalities. The uterus is absent. Th ere are no adnexal masses. The aorta demonstrate atherosclerotic disease extending into the aortic bi furcation. There is no retroperitoneal lymphadenopathy. There is no evidence for ascites. The res t of the soft tissue demonstrate to be grossly unremarkable. IMPRESSION: No evidence for nephrolithiasis and/or hydronephrosis. Moderate size at the hernia with the contrast along the distal esophagus related to gastroesophageal reflux disease. Constipation. Status post hysterectomy. Atherosclerotic disease of the aorta. Electronically signed by: Ok Martinez MD 03/10/2022 1:16 AM CDT Due to temporary technical issues with the PACS/Fluency reporting system, reports are being signed by the in house radiologists without review as a courtesy to insure prompt reporting. The interpreting radiologist is fully responsible for the content of the report.
== END 2022-03-10 00:42 | disposition home or self-care (01) ==
LOC: ER 20:53
DX: K59.00 Constipation, unspecified (principal); N39.0 Urinary tract infection, site not specified; N19 Unspecified kidney failure; E78.00 Pure hypercholesterolemia, unspecified; Z95.1 Presence of aortocoronary bypass graft; Z88.1 Allergy status to other antibiotic agents; Z88.8 Allergy status to other drugs, medicaments and biological substances
CPT/HCPCS: 87088; 85025; 87086; 36415; 81003; 83690; 80053; 74176; J7030; 96361; 96365; 99284

== ENCOUNTER 2022-08-30 10:15 | Emergency (ER) | payer OTHER, MEDICARE ==
--- OUTSIDE RECORDS SUMMARY | 2022-08-30 10:21 | XMS REPORT | Continuity of Care Document ---
:1940 Author Organization [facility] t Address [address] [place] [place] [address] Care Team Providers Name Role Phone Alo JOHNSON, Korin Qureshi Primary Care Physician [phone] Alo JOHNSON, Korin Desir Attending Clinician Joanna Espinosa MA Attending Clinician Unavailable Guillermo JOHNSON, Augustine Ochoa Attending Clinician [phone] Roberta CHRISTY, George Miranda Attending Clinician Dionne Sahu MD Attending Clinician Lisa Kim MD Attending Clinician Lenore Peter RN Attending Clinician Unavailable Drake JOHNSON, Yvonne Burrell Attending Clinician [phone] Robin Dove MA Attending Clinician Unavailable Nora Baez Attending Clinician Unavailable Alea Mack PT Attending Clinician Unavailable WILLEM CAMPOS Attending Clinician Unavailable Payers Payer Name Policy Type Policy Number Effective Date Expiration Date Luis Alberto smith [employer] [id number] 2017 SUPPLEMENT 00:00:00 Problems Condition Condition Condition Status Onset Resolution Last Treating Co mments Source Name Details Category Date Date Treatment Clinician Date History of History of Disease Active Overview : Methodi cervical cervical 04-[address] fracture fracture 00:00: g of this Hos lars 00 note l might be different from the original. c1 S/P CABG x S/P CABG x Disease Active M ethodi 2 2 6-21 st 00:00: Hospita 00 l Coronary Coronary Disease Active Metho di artery artery 3-13 st disease disease 00:00: Hospita 00 l Disease of Disease of Disease Active Overview : Methodi cardiovasc cardiovasc 3-[address] ular ular 00:00: g of this Hospita system system 00 note l might be different from the original. Added automatic ally from request for surgery Coronary Coronary Disease Active Overview: Me thodi artery artery 2-[address] disease disease 00:00: g of this Hospi ta involving involving 00 note l egegik egegik might be coronary coronary different artery of artery of from the egegik egegik original. heart heart Added without without automatic angina angina ally from pectoris pectoris request for surgery [id number] monisha Lopez Assessmen t & Plan: Formattin g of this note might be different from the original. Chest pain Chest pain Disease Active Overview : Methodi 2-[address] 00:00: g of this Hospita 00 note l might be different from the original. Added automatic ally from request for surgery [id number] SOB SOB Disease Active Overview: Method i (shortness (shortness -[address] of breath) of breath) 00:00: g of this Hospita 00 note l might be different from the original. Added automatic ally from request for surgery [id number] Benign Benign Disease Active 2016-09 Methodi essential essential 0-24 st tremor tremor 00:00: Hospita 00 l Pleural Pleural Disease Active Overview: Meth bob effusion effusion 05-[address] 00:00: g of this Hospita 00 note l might be different from the original. 05/2017 ct scan chest wnl Visit for Visit for Disease Active Overview: Methodi screening screening 05-30 Formattin s t mammogram mammogram 00:00: g of this H ospita 00 note l might be different from the original. 05/2016 wnl/2018 wnl10/201 9 wnl10/202 0 wnl Osteopenia Osteopenia Disease Active Overview : Methodi 6-[address] 00:00: g of this Hospita 00 note l might be different from the original. Overview: 04/2015 spine +4.4 hip -1.5 (left increased and right decreased )L -1.5 R-1.59/20 18 spine +5.8 hips -0.1 frax 19.4 11.4 RLS RLS Disease Active Overview: Method i (restless (restless 630 Formattin s t legs legs 00:00: g of this Hospita syndrome) syndrome) 00 note l might be different from the original. 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 Overview: 10/2014 TSH 0.4 and free t4 wnl Syncope Syncope Disease Active Overview: Meth bob 3-[address] 00:00: g of this Hospita 00 note l might be different from the original. Overview: Dr. Riddle (PET) normal stress, denst coronary calcFor tilt table and holterHas fu every 6 monthsHad a sleep test the results are pending Vitamin D Vitamin D Disease Active [facility] deficiency deficiency [facility] Allergies, Adverse Reactions, Alerts Allergy Allergy Status Severity Reaction(s) Onset Inactive Treating Comm ents Source Name Type Date Date Clinician Juan Miguel Trejoensi Active 2016-09 Side Method i antoin ty to 0-[address] Monohyd/ adverse 00:00: Hospita M-Cryst reaction 00 l s to drug Amoxicil Propensi Active hives Method i ericka ty to 6-30 st adverse 00:00: Hospita reaction 00 l s to drug Metoprol Propensi Active dizziness Met hodi ol ty to 6-30 st Succinat adverse 00:00: Hospita e reaction 00 l s to drug Rosuvast Propensi Active Elevated Meth bob atin ty to 6-[address] adverse 00:00: Hospita reaction 00 l s to drug Metoprol Propensi Active dizziness [facility] adverse [facility]: Medical e reaction 00 Center s Rosuvast Propensi Active Elevated [facility] at[facility] ty to 6-[facility] adverse 00:00: Medical reaction 00 Center s Amoxicil Propensi Active Converted [facility] ericka ty to from [facility]; [facility] adverse Medical reaction Center s Family History Family Member Diagnosis Comments Start Date Stop Date Source Natural mother Arthritis [facility] Natural mother Hypertension [facility] Natural mother Arthritis [facility] Natural mother Hypertension [facility] Natural father Hypertension [facility] Natural father Stroke [facility] Natural father Hypertension [facility] Natural father Stroke [facility] Natural brother Heart attack [facility] Social History Social Habit Start Date Stop Date Quantity Comments Source Alcohol intake 2022-07-24 2022-07-24 Current [facility] 00:00:00 00:00:00 non-drinker of Hospital alcohol (finding) Tobacco use and 2022-04-19 2022-04-19 Smokeless tobacco [facility] exposure 00:00:00 00:00:00 non-user Hospital Sex Assigned At [birth year] [facility] 00:00:00 [facility]00 [facility] Smoking Status Start Date Stop Date Source Never smoked tobacco [facility] Medications Ordered Filled Start Stop Current Ordering Indication Dosage Frequency Signature Comments Components Source Medication Medication Date Date Medication? Clinician (SIG) Name Name Margaretrabiaclark 2021-09 Yes TAKE ONE Methodi 2.5-25-1 mg 2-02 (1) st tablet 00:00: TABLET(S) Hospit a 00 BY MOUTH l ONCE A DAY. mirabegron 2021-09 Yes 50mg QD Take 1 Metho di (Myrbetriq) 29 tablet (50 st 50 mg 00:00: mg total) Hospita tablet 00 by mouth l extended daily. release 24 hr atorvastati 2021-09 Yes 40mg QD Take 1 Meth bob n (LIPITOR) 09-29 tablet (40 st 40 mg 00:00: mg total) Hospita tablet 00 by mouth l daily. amLODIPine 2021-09- Yes 2.5mg QD Take 1 Met hodi (NORVASC) 09-[address] 2.5 mg 00:00: 05:59 (2.5 mg Hospita tablet 00 :00 total) by l mouth daily. cholecalcif 2021-09 Yes 2000U QD Take 1 Met hodi jamee, -[address] vitamin D3, 12:04: (2,000 Hosp tova 50 mcg 18 Units l (2,000 total) by unit) mouth capsule daily. capsule MAGNESIUM 2021-09 Yes 500mg QD Take 500 Met hodi ORAL 1-[address] 11:47: mouth Hospita 07 nightly. l omeprazole 2021-09 Yes TAKE ONE Met hodi (PriLOSEC) 1-20 (1) st 20 MG 00:00: CAPSULE(S) Hospit a capsule 00 BY MOUTH l ONCE A DAY. desvenlafax 2021-09 Yes TAKE ONE Me thodi ine -16 (1) st (PRISTIQ) 00:00: TABLET(S) Hos lars 50 MG 24 hr 00 BY MOUTH l tablet ONCE A DAY. propranoloL 2021-09 Yes 20mg Q.[id number] Take 1 Methodi (INDERAL) -16 [id number] tablet (20 st 20 MG 00:00: 3D mg total) Hospita tablet 00 by mouth 3 l (three) times a day. meloxicam 2021-09- No TAKE ONE Met hodi (MOBIC) 7.5 09-02 11-22 (1) st mg tablet 00:00: 00:00 TABLET(S) Ho spita 00 :00 BY MOUTH l ONCE A DAY. amLODIPine 2021-09- No 2.5mg QD Take 1 Met hodi (NORVASC) 0-13 -[address] 2.5 mg 00:00: 00:00 (2.5 mg Hospita tablet 00 :00 total) by l mouth daily. lisinopriL 2021-09 Yes TAKE ONE Met hodi (PRINIVIL) 0-11 (1) st 40 mg 00:00: TABLET(S) Hospita tablet 00 BY MOUTH l TWICE A DAY. clonIDINE Yes .1mg Q8H Take 1 Method i (Catapres) 05-[address] 0.1 MG 00:00: (0.1 mg Hospita tablet 00 total) by l mouth every 8 (eight) hours as needed for high blood pressure (sBP >160). propranoloL 2021- No Week 1: Me thodi (INDERAL) 05-21-16 1/[address] 20 MG 00:00: 00:00 (10 mg) Hospita tablet 00 :00 twice a l day, Week 2: 1 tablet (20 mg) twice a day, Week 3: 1 tablet (20 mg) three times a day and continue at this dose. gabapentin Yes TAKE ONE Met hodi (NEURONTIN) 04-30 (1) st 600 mg 00:00: TABLET(S) Hospit a tablet 00 BY MOUTH l THREE TIMES A DAY. busPIRone Yes [id number] 10mg Q.5D Take 1 Me thodi (BUSPAR) 10 8-18 tablet (10 st MG tablet 00:00: mg total) Hos lars 00 by mouth 2 l (two) times a day as needed (anxiety). rotigotine 2022- No [id number] 1{patch QD Place 1 Methodi (Neupro) 8 8-18 04-20 } patch on st mg/24 hour 00:00: 04:59 the skin Ho spita 00 :00 daily. l Myrbetriq 2021- No TAKE ONE Met hodi 50 mg 7-20 11-29 (1) st tablet 00:00: 00:00 TABLET(S) Hospi ta extended 00 :00 BY MOUTH l release 24 ONCE A hr DAY. meloxicam 2021- No TAKE ONE Met hodi (MOBIC) 7.5 03-20 (1) st mg tablet 00:00: 00:00 TABLET(S) Ho spita 00 :00 BY MOUTH l ONCE A DAY. amLODIPine 2021- No 5mg QD Take 1 Meth bob (Norvasc) 5 03-20 tablet (5 st mg tablet 00:00: 00:00 mg total) Ho spita 00 :00 by mouth l daily. atorvastati 2021- No TAKE ONE M ethodi n (LIPITOR) 03-13 (1) st 40 mg 00:00: 00:00 TABLET(S) Hospit a tablet 00 :00 BY MOUTH l ONCE A DAY. amoxicillin 2021- No 1{tbl} Q.5D Take 1 M ethodi -pot 02-[address] clavulanate 00:00: 04:59 mouth 2 Ho spita (AUGMENTIN) 00 :00 (two) l 875-125 mg times a per tablet day for 7 days. Neupro 6 2021- No APPLY ONE Met hodi mg/24 hour 02-20 (1) st 00:00: 00:00 PATCH(ES) Hospita 00 :00 TO THE l SKIN ONCE A DAY. ciprofloxac 2021- No 250mg Q.5D Take 1 Me thodi in HCl 11-26 03-[address] (Cipro) 250 00:00: 04:59 (250 mg Ho spita MG tablet 00 :00 total) by l mouth 2 (two) times a day for 3 days. rotigotine 2021- No 1{patch QD Place 1 Methodi (NEUPRO) 6 11-22 06-21 } patch on st mg/24 hour 00:00: 00:00 the skin Ho spita 00 :00 daily. l Folbee 2021- No TAKE ONE Method i 2.5-25-1 mg 11-03 (1) st tablet 00:00: 00:00 TABLET(S) Hospi ta 00 :00 BY MOUTH l ONCE A DAY. amLODIPine 2021- No TAKE ONE Me thodi (NORVASC) 3-12 07-19 (1) st 10 mg 00:00: 00:00 TABLET(S) Hospit a tablet 00 :00 BY MOUTH l ONCE A DAY. desvenlafax 2021- No 50mg QD Take 1 Met hodi ine 10-30-16 tablet (50 st (Pristiq) 00:00: 00:00 mg total) Ho spita 50 MG 24 hr 00 :00 by mouth l tablet daily. rotigotine 2021- No [id number] APPLY ONE Methodi (Neupro) 8 10-29-23 (1) st mg/24 hour 00:00: 00:00 PATCH(ES) H ospita patch 24 00 :00 TO THE l hour SKIN ONCE DAILY. rotigotine 2021- No [id number] RLS Me thodi (Neupro) 8 10-25-27 st mg/24 hour 00:00: 00:00 Hospit a patch 24 00 :00 l hour meloxicam 2021- No TAKE ONE Met hodi (MOBIC) 7.5 10-09 (1) st mg tablet 00:00: 00:00 TABLET(S) Ho spita 00 :00 BY MOUTH l ONCE A DAY. FLUoxetine 2020-09- No TAKE ONE Me thodi (PROzac) 20 10-30-28 (1) st MG capsule 00:00: 00:00 CAPSULE(S) Hospita 00 :00 BY MOUTH l DAILY. meloxicam 2020-09 No 7.5mg QD Take 1 Meth bob (Mobic) 7.5 09-10- tablet st mg tablet 00:00: 00:00 (7.5 mg Hosp tova 00 :00 total) by l mouth daily for 90 days. solifenacin 2020-09 No 10mg QD Take 1 Met hodi (Vesicare) 09-05-05 tablet (10 st 10 MG 00:00: 04:59 mg total) Hospit a tablet 00 :00 by mouth l daily. tiZANidine 2020-09- No TAKE ONE M ethodi (ZANAFLEX) 0-17 03-22 (1) st 2 MG tablet 00:00: 00:00 TABLET(S) Hospita 00 :00 BY MOUTH l EVERY NIGHT NEEDED FOR MUSCLE SPASMS. lisinopriL 2021- No TAKE ONE M ethodi (PRINIVIL) 8-20 10-11 (1) st 40 mg 00:00: 00:00 TABLET(S) Hospit a tablet 00 :00 BY MOUTH l TWICE A DAY. gabapentin 2021- No 600mg QD Take 1 Met hodi (NEURONTIN) 6-23 08-[address] 600 mg 00:00: 00:00 (600 mg Hospita tablet 00 :00 total) by l mouth daily. desmopressi Yes TAKE ONE Me thodi n (DDAVP) 5-06 (1) st 0.2 MG 00:00: TABLET(S) Hospit a tablet 00 BY MOUTH l ONCE A DAY. atorvastati 2021- No 40mg QD Take 1 Met hodi n (Lipitor) 4-30 05- tablet (40 s t 40 mg 00:00: 04:59 mg total) Hospit a tablet 00 :00 by mouth l daily. amLODIPine 2021- No TAKE ONE Me thodi (NORVASC) 3-28 03-04 (1) st 10 mg 00:00: 00:00 TABLET(S) Hospit a tablet 00 :00 BY MOUTH l ONCE A DAY. folic 2021- No 1{tbl} QD Take 1 Methodi acid-vit 09-09 03-[address] B6-vit B12 00:00: 00:00 mouth Hospi ta (Folbee) 00 :00 daily. l 2.5-25-1 mg tablet rotigotine 2021- No RLS Method i (Neupro) 8 09-09 02-23 st mg/24 hour 00:00: 00:00 Hospit a patch 24 00 :00 l hour propranolol 2021- No 120mg QD Take 1 Me thodi [place] (Inderal 09-09 01-[address] [place]) 120 MG 00:00: 05:59 (120 mg Hos lars 24 hr 00 :00 total) by l capsule mouth daily. aspirin 81 Yes 81mg QD Take [address] MG EC 2-16 by mouth [facility] tablet 11:24: daily. [address] Vitamin D Yes 4000U QD Take 4,[address] 2,000 unit 2-16 Units by [facility] Cap 11:24: mouth Medical 43 daily . [place] CALCIUM Yes 600mg QD Take 600 [facility] CITRATE/VIT 2-16 mg by [facility] FLOOD D3 11:24: mouth Medical (CITRACAL + 43 daily . Cente r D ORAL) lisinopril 2016 Yes 40mg QD Take [address] (PRINIVIL,Z 2-16 by mouth Luke s ESTRIL) 40 11:24: daily. Medic al MG tablet 43 [place] pitavastati Yes 2mg QD Take [address] n (LIVALO) 2-16 by mouth [facility] 1 mg tablet 11:24: daily. Medi paul 43 [place] rotigotine 2015- Yes QD Place onto [facility] (NEUPRO) 8 2-16 the skin [facility] mg/24 hour 11:24: daily. Medic al PT24 43 [place] MAGNESIUM Yes 500mg QD Take [address] ORAL 2-16 mg by [facility] 11:24: mouth Medical 43 daily. [place] PHOSPSERIN/ Yes 300mg QD Take [address] OMEGA-3/DHA 2-16 mg by [facility] /EPA 11:24: mouth Medical (VAYACOG 43 daily. [place] ORAL) gabapentin 2015- Yes QD Take by [facility] 600 mg Tb24 2-16 mouth [facility] 11:24: daily. [facility] 43 [place] azelastine Yes Other [address] 0.15 % 2-16 seasonal nasally [facility] (205.5 mcg) 00:00: allergic daily. Medical [place] 00 rhinitis Center desmopressi Yes Overactive .2mg QD Take [address] n (DDAVP) 2-16 bladder tablet [facility] 0.2 MG 00:00: (0.2 mg Medical tablet 00 total) by Center mouth daily. fLUoxetine Yes Anxiety 10mg QD Take [address] (PROZAC) 10 2-16 capsule [facility] MG capsule 00:00: (10 mg Medic al 00 total) by Center mouth daily. omeprazole Yes Gastroesoph 20mg QD Take [address] (PRILOSEC) 2-16 ageal capsule [facility] 20 MG 00:00: reflux (20 mg Medical capsule 00 disease total) by [facility] er without mouth esophagitis daily. trospium 60 Yes Overactive 60mg QD Take [address] mg Cp24 2-16 bladder capsule [facility] 00:00: (60 mg Medical 00 total) by Center mouth nightly. omeprazole 20mg QD Take 20 mg Methodi (PriLOSEC) 2-16 11-[address] 20 MG 00:00: 00:00 daily. Hospita capsule 00 :00 l spironolact Yes 1/[address] one-hydroch 2-20 daily [facility] lorothiazid 00:00: Medica l e 00 Center (ALDACTAZID E) 25-25 mg per tablet Immunizations Ordered Immunization Filled Immunization Date Status Commen ts Source Name Name FLUZONE HIGH-DOSE PF 2022-05-17 Completed Meth odist 00:00:00 [facility] PFIZER >12 YR 2022-05-17 Completed [facility] COVID-19 MRNA 00:00:00 [facility] BIVALENT VACCINATION [facility] COVID-19 MRNA 2022-01-01 Completed Met hodist VACCINATION 00:00:00 [facility] FLUZONE HIGH-DOSE PF 2021-05-24 Completed Meth odist 00:00:00 [facility] MODERNA COVID-19 MRNA 2021-04-24 Completed Met hodist VACCINATION 00:00:00 [facility] MODERNA COVID-19 MRNA 2020-10-04 Completed Met hodist VACCINATION 00:00:00 [facility] MODERNA COVID-19 MRNA 2020-09-06 Completed Met hodist VACCINATION 00:00:00 [facility] FLUZONE HIGH-DOSE PF 2020-06-29 Completed Meth odist 00:00:00 [facility] FLUZONE HIGH-DOSE PF 2019-06-11 Completed Meth odist 00:00:00 Hospital Zoster Vaccine 2019-01-14 Completed [facility] Recombinant 00:00:00 Hospital Zoster Vaccine 2018-10-03 Completed [facility] Recombinant 00:00:00 Hospital Influenza, 2018-06-20 Completed [facility] Unspecified 00:00:00 Hospital Influenza Whole 2017-06-15 Completed [facility] 00:00:00 Hospital Influenza Whole 2016-07-29 Completed [facility] 00:00:00 Hospital Pneumococcal 2016-05-26 Completed [facility] Polysaccharide 00:00:00 Hospital Influenza Whole 2015-06-[address] [facility] k[facility] 00:00:00 [facility] Influenza Whole 2015-06-17 Completed [facility] 00:00:00 Hospital Pneumococcal 2014-11-[address] [facility] Conjugate (Prevnar) 00:00:00 [facility]-Valent Pneumococcal 2014-11-08 Completed [facility] Conjugate [facility]ent 00:00:00 [facility] Influenza Whole 2014-06-[address] [facility] 00:00:00 [facility] Influenza Whole 2014-06-14 Completed [facility] 00:00:00 Hospital Influenza Whole 2013-06-[address] [facility] 00:00:00 [facility] Influenza Whole 2013-06-14 Completed [facility] 00:00:00 Hospital Influenza Whole 2012-07-[address] [facility] 00:00:00 [facility] Influenza Whole 2012-07-02 Completed [facility] 00:00:00 [facility] Tdap 2012-04-[address] [facility] 00:00:00 [facility] Tdap 2012-04-26 Completed [facility] 00:00:00 [facility] Hepatitis B 2012-03-[address] [facility] 00:00:00 [facility] Typhoid Inactivated 2012-03-28 [facility] 00:[facility]00 [facility] Hepatitis B 2012-03-28 Completed [facility] 00:00:00 Hospital Typhoid Inactivated 2012-03-28 Completed [facility] dist 00:00:00 [facility] Influenza TIV (IM) 2011-06-[address] [facility] 00:00:00 [facility] Influenza Trivalent 2011-06-01 Completed Metho dist 00:00:00 [facility] SHINGLES VARICELLA 2007-09-[address] [facility] (ZOSTAVAX) ZOSTER 00:00:00 [facility] Zoster 2007-09-26 Completed [facility] 00:00:00 [facility] Pneumococcal 2006-06-[address] [facility] Polysaccharide 00:00:00 Medical nter (Pneumovax) Pneumococcal 2006-06-13 Completed [facility] Polysaccharide 00:00:00 Hospital Vital Signs Vital Name Observation Time Observation Value Comments Source Systolic blood 2022-07-24 18:14:00 132 mm[Hg] [facility] Hospital pressure Diastolic blood 2022-07-24 18:14:00 60 mm[Hg] [facility] Hospital pressure Heart rate 2022-07-24 17:46:00 65 /min [facility] Body height 2022-07-24 17:46:00 165.1 cm [facility] Body weight 2022-07-24 17:46:00 56.79 kg [facility] BMI 2022-07-24 17:46:00 20.83 kg/m2 [facility] Oxygen saturation in 2022-07-24 17:46:00 98 /min [facility] Arterial blood by Pulse oximetry Respiratory rate 2022-05-21 13:27:00 16 /min [facility] Procedures Procedure Date / Time Performing Clinician Source Performed COMPREHENSIVE METABOLIC 2022-07-24 18:17:00 AloKorin carlson [facility] PANEL HEMOGLOBIN A1C 2022-07-24 18:17:00 AloKorin carlson [facility] LIPID PANEL 2022-07-24 18:17:00 AloOvidio carlsonKorin Thang [facility] ALBUMIN WITH CREATININE 2022-07-24 18:17:00 AloKorin carlson [facility] AND RATIO, RANDOM URINE XR CERVICAL SPINE 2022-07-19 17:08:16 [facility] COMPLETE XR CERVICAL SPINE 2022-04-19 16:30:52 [facility] COMPLETE XR CERVICAL SPINE 2022-03-15 16:04:58 Guillermo [facility] COMPLETE [place] XR SPINE EXTERNAL STUDY 2022-03-02 04:55:23 Guillermo [facility] [place] CT CHEST ABD PEL EXTERNAL 2022-03-02 00:18:04 Augustine Li [facility] STUDY [place] [facility] SPINE EXTERNAL STUDY 2022-03-01 18:56:45 Guillermo [facility] [place] HEMOGLOBIN A1C 2022-01-01 05:00:00 Korin Centeno [facility] BASIC METABOLIC PANEL 2022-01-01 05:00:00 Korin Centeno [facility] URINALYSIS, COMPLETE, 2021-11-23 13:52:00 Korin Centeno [facility] WITH REFLEX TO CULTURE COMPREHENSIVE METABOLIC 2021-11-21 05:00:00 AloKorin carlson [facility] PANEL CBC WITH PLATELET AND 2021-11-21 05:00:00 Korin Centeno [facility] DIFFERENTIAL THYROID STIMULATING 2021-11-21 05:00:00 Korin Centeno [facility] HORMONE Encounters Start End Encounter Admission Attending Care Care Encounter Source Date/Time Date/Time Type Type Clinicians Facility Department ID 2022-05-14 [id number] Common 10:36:05 [facility] 2022-05-10 Outpatient [facility] [id number] [place] 13:54:05 [id number] [facility] 2022-03-16 Outpatient [facility] [id number] [place] 07:17:48 [id number] [facility] 2022-03-01 Outpatient [facility] [id number] [place] 18:10:40 [id number] [facility] 2022-08-30 2022-08-30 Telephone Alo, 1.2.840.1 [id number] 2099 [id number] Methodi 00:00:00 00:00:[id number]. 3.430.2.7 Hospit a .3.105157 l .8 2022-08-30 2022-08-30 Telephone Joanna Espinosa 1.2.840.1 [id number] Methodi 00:00:00 00:00:[id number] 3.430.2.7 Hospit a .3.549891 l .8 2022-08-23 2022-08-23 Telephone Alo 1.2.840.1 [id number] 2099 [id number] Methodi 00:00:00 00:00:[id number] B. 3.430.2.7 Hospit a .3.558219 l .8 2022-08-16 2022-08-16 Telephone Alo 1.2.840.1 [id number] 2099 [id number] Methodi 00:00:00 00:00:[id number]. 3.430.2.7 Hospit a .3.830518 l .8 2022-08-15 2022-08-15 Refill Alo 1.2.840.1 [id number] Methodi 00:00:00 00:00:[id number] B. 3.430.2.7 Hospit a .3.765034 l .8 2022-07-30 2022-07-30 Telephone Alo, 1.2.840.1 [id number] [id number] Methodi 00:00:00 00:00:[id number] B. 3.430.2.7 Hospit a .3.790024 l .8 2022-07-30 2022-07-30 Refill Alo, 1.2.840.1 [id number] Methodi 00:00:00 00:00:[id number] B. 3.430.2.7 Hospit a .3.396353 l .8 2022-07-25 2022-07-25 Refill Alo, 1.2.840.1 [id number] Methodi 00:00:00 00:00:[id number]. 3.430.2.7 Hospit a .3.908243 l .8 2022-07-24 2022-07-24 Office Alo, 1.2.840.1 [id number] Methodi 11:30:00 12:29:06 Visit Korin [id number] B. 3.430.2.7 Hospit a .3.250265 l .8 2022-07-24 2022-07-24 [id number] [address] [place] 00:00:00 00:00:[address] 2022-07-22 2022-07-22 Telephone Alo, 1.2.840.1 [id number] 2099 [id number] Methodi 00:00:00 00:00:[address] B. 3.430.2.7 Hospit a .3.144409 l .8 2022-07-19 2022-07-19 Office Augustine Li 1.2.840. 1 [id number] Methodi 11:15:00 11:26:43 Visit George Granados [id number] 3.430.2.7 Hospit a .3.661882 l .8 2022-07-19 2022-07-19 Outpatient AUGUSTINE LI [facility] [id number] [place] 00:00:00 00:00:[address] 2022-07-19 2022-07-19 [facility] [facility] [id number] 990 [place] 00:00:00 00:00:[address] 2022-07-18 2022-07-18 Refill Dionne Sahu 1.2.840.1 [id number] 21 [id number] Methodi 00:00:00 00:00:[address] 3.430.2.7 Hospit a .3.455019 l .8 2022-07-18 2022-07-18 Refill Alo, 1.2.840.1 [id number] 396059 7516 Methodi 00:00:00 00:00:[address] B. 3.430.2.7 Hospit a .3.224956 l .8 2022-07-17 2022-07-17 Travel 1.2.840.1 1.2.119.355 7460 481858 Methodi 00:00:00 00:00:[address] 3.430.2.7 0.2.7.3.698 spita .3.495247 084.8 l .8 2022-07-16 2022-07-16 Refstephen Centeno, 1.2.840.1 [id number] 309451 9879 Methodi 00:00:00 00:00:[address] B. 3.430.2.7 Hospit a .3.534383 l .8 2022-06-29 2022-06-29 Refstephen Kim 1.2.840.1 [id number] 130208 5775 Methodi 00:00:00 00:00:00 Lisa Keyes 07130.1.1 968 s t 3.430.2.7 Hospit a .3.345199 l .8 2022-06-20 2022-06-20 Refstephen Princeer, 1.2.840.1 [id number] 628296 2146 Methodi 00:00:00 00:00:00 Lisa Keyes 18614.1.1 269 s t 3.430.2.7 Hospit a .3.129232 l .8 2022-06-14 2022-06-14 Orders Alo, 1.2.840.1 [id number] 580880 1035 Methodi 00:00:00 00:00:00 Only Korin 52611.1.[address] B. 3.430.2.7 Hospit a .3.775701 l .8 2022-06-14 2022-06-14 Telephone [place], 1.2.840.1 [id number] 2099 173023 Methodi 00:00:00 00:00:[address] Len[address] 80215.1.[address] 3.430.2.7 Hospit a .3.149200 l .8 2022-06-14 2022-06-14 Telephone Alo, 1.2.840.1 [id number] 2099 274250 Methodi 00:00:00 00:00:[address] B. 3.430.2.7 Hospit a .3.089576 l .8 2022-06-08 2022-06-08 Refill Alo, 1.2.840.1 [id number] 131940 6115 Methodi 00:00:00 00:00:[address] B. 3.430.2.7 Hospit a .3.206511 l .8 2022-05-24 2022-05-24 Telephone Alo, 1.2.840.1 [id number] 2099 790784 Methodi 00:00:00 00:00:[address] B. 3.430.2.7 Hospit a .3.033400 l .8 2022-05-21 2022-05-21 Office Dionne Sahu 1.2.840.1 [id number] 21 [id number] Methodi 08:30:00 08:51:[address] 3.430.2.7 Hospit a .3.566115 l .8 2022-05-21 2022-05-21 Orders Alo, 1.2.840.1 [id number] 115165 3750 Methodi 00:00:00 00:00:00 Only Korin 16893.1.[address] B. 3.430.2.7 Hospit a .3.454768 l .8 2022-05-21 2022-05-21 Telephone Joanna Espinosa 1.2.840.1 [id number] Methodi 00:00:00 00:00:[address] 3.430.2.7 Hospit a .3.354255 l .8 2022-05-21 2022-05-21 Travel 1.2.840.1 1.2.313.225 5261 009233 Methodi 00:00:00 00:00:[address] 3.430.2.7 0.2.7.3.698 Ho spita .3.429534 084.8 l .8 2022-05-21 2022-05-21 Outpatient DIONNE SAHU [facility] 896 [id number] [place] 00:00:00 00:00:[address] 2022-05-17 2022-05-17 Clinical 1.2.840.1 [id number] 73743 23981 Methodi 12:20:00 13:56:[address] 3.430.2.7 Hospit a .3.311420 l .8 2022-05-17 2022-05-17 Outpatient [facility] [id number] 475 [place] 00:00:00 00:00:[address] 2022-05-17 2022-05-17 Orders Alo, 1.2.840.1 [id number] 6233 Methodi 00:00:00 00:00:00 Only Korin 63085.1.[address] B. 3.430.2.7 Hospit a .3.698405 l .8 2022-04-30 2022-04-30 Refill Dionne Sahu 1.2.840.1 [id number] 21 [id number] Methodi 00:00:00 00:00:[address] 3.430.2.7 Hospit a .3.871332 l .8 2022-04-19 2022-04-19 Office Alo, 1.2.840.1 [id number] 958978 1107 Methodi 14:30:00 15:25:53 Visit Korin 62418.1.[address] B. 3.430.2.7 Hospit a .3.017119 l .8 2022-04-19 2022-04-19 Office Augustine Li 1.2.840.1 [id number] 086 9758937 Methodi 11:00:00 11:59:50 Visit Jay 44274.1.[address] [place] 3.430.2.7 Hospit a .3.741287 l .8 2022-04-19 2022-04-19 Outpatient AUGUSTINE LI [facility] 2100 [id number] [place] 00:00:00 00:00:[address] 2022-04-19 2022-04-19 Outpatient [facility] [id number] 564 [place] 00:00:00 00:00:[address] 2022-04-19 2022-04-19 Outpatient ALO [facility] [id number] 979 [place] 00:00:00 00:00:00 KORIN [address] 2022-04-19 2022-04-19 Travel 1.2.840.1 1.2.289.486 4904 971188 Methodi 00:00:00 00:00:[address] 3.430.2.7 0.2.7.3.698 Ho spita .3.080788 084.8 l .8 2022-03-27 2022-03-27 Office Alo, 1.2.840.1 [id number] 392378 1642 Methodi 10:30:00 12:29:26 Visit Korin 47144.1.[address] B. 3.430.2.7 Hospit a .3.388520 l .8 2022-03-27 2022-03-27 Outpatient ALO, [facility] [id number] 792 [place] 00:00:00 00:00:00 KORIN [address] 2022-03-27 2022-03-27 Travel 1.2.840.1 1.2.102.569 3319 943053 Methodi 00:00:00 00:00:[address] 3.430.2.7 0.2.7.3.698 Ho spita .3.120511 084.8 l .8 2022-03-20 2022-03-20 Telephone Alo, 1.2.840.1 [id number] 2099 227325 Methodi 00:00:00 00:00:[address] B. 3.430.2.7 Hospit a .3.982263 l .8 2022-03-19 2022-03-19 Telephone Alo, 1.2.840.1 [id number] 2099 795866 Methodi 00:00:00 00:00:[address] B. 3.430.2.7 Hospit a .3.189188 l .8 2022-03-19 2022-03-19 Refill Alo, 1.2.840.1 [id number] 485603 5443 Methodi 00:00:00 00:00:[address] B. 3.430.2.7 Hospit a .3.632660 l .8 2022-03-19 2022-03-19 Refstephen Kim, 1.2.840.1 [id number] 976723 3895 Methodi 00:00:00 00:00:00 Lisa Keyes 08463.1.1 874 s t 3.430.2.7 Hospit a .3.808798 l .8 2022-03-16 2022-03-16 Travel 1.2.840.1 1.2.889.971 2739 644545 Methodi 00:00:00 00:00:[address] 3.430.2.7 0.2.7.3.698 Ho spita .3.996991 084.8 l .8 2022-03-15 2022-03-15 [facility] Augustine Li 1.2.840.1 [id number] 21 [id number] Methodi 11:18:33 23:59:00 Encounter Jay 71725.1.[address] [place] 3.430.2.7 Hospit a .3.525482 l .8 2022-03-15 2022-03-15 Office Korin Centeno 1.2.840.1 1040 18546 [id number] Methodi 11:00:00 11:29:32 Visit uAgustine Li Jay Ochoa 52319.1.[address] 3.430.2.7 Hospit a .3.297930 l .8 2022-03-15 2022-03-15 [facility] GuillermoAugustine marin 1.2.840.1 [id number] 21 [id number] Methodi 11:17:24 11:17:24 Encounter Jay 45697.1.[address] [place] 3.430.2.7 Hospit a .3.726988 l .8 2022-03-15 2022-03-15 [facility] GuillermoAugustine marin 1.2.840.1 [id number] 21 [id number] Methodi 11:17:23 11:17:23 Encounter Jay 80035.1.[address] [place] 3.430.2.7 Hospit a .3.310564 l .8 2022-03-15 2022-03-15 Outpatient ALO [facility] [id number] 842 [place] 00:00:00 00:00:00 KORIN Saldivar Meth bob st 2022-03-15 2022-03-15 Outpatient AUGUSTINE LI [facility] 2100 [id number] [place] 00:00:00 00:00:[address] 2022-03-15 2022-03-15 Outpatient AUGUSTINE LI [facility] 2100 [id number] [place] 00:00:00 00:00:[address] 2022-03-15 2022-03-15 Outpatient AUGUSTINE LI [facility] 2100 [id number] [place] 00:00:00 00:00:[address] 2022-03-15 2022-03-15 Outpatient AUGUSTINE IL [facility] 2100 [id number] [place] 00:00:00 00:00:[address] 2022-03-15 2022-03-15 Orders Augustine Li 1.2.840.1 [id number] 332 [id number] Methodi 00:00:00 00:00:00 Only Jay 90157.1.[address] [place] 3.430.2.7 Hospit a .3.815361 l .8 2022-03-15 2022-03-15 Travel 1.2.840.1 1.2.699.455 0765 916214 Methodi 00:00:00 00:00:[address] 3.430.2.7 0.2.7.3.698 Ho spita .3.059545 084.8 l .8 2022-03-12 2022-03-12 Johanna Centeno, 1.2.840.1 [id number] 074017 9876 Methodi 00:00:00 00:00:[address] B. 3.430.2.7 Hospit a .3.702645 l .8 2022-03-02 2022-03-02 Melony Centeno, 1.2.840.1 [id number] 2100 174666 Methodi 00:00:00 00:00:[address] B. 3.430.2.7 Hospit a .3.814981 l .8 2022-02-23 2022-02-23 Scott Juan, 1.2.840.1 294491051 547647 5701 Methodi 00:00:00 00:00:00 Only Yvonne 67113.1.[address] Ashanti 3.430.2.7 Hospi ta .3.214282 l .8 2022-02-21 2022-02-21 Telephone Alo, 1.2.840.1 [id number] 2100 630089 Methodi 00:00:00 00:00:[address] B. 3.430.2.7 Hospit a .3.769736 l .8 2022-02-20 2022-02-20 Orders Alo, 1.2.840.1 [id number] 224430 1669 Methodi 00:00:00 00:00:00 Only Korin 02640.1.[address] B. 3.430.2.7 Hospit a .3.991771 l .8 2022-02-20 2022-02-20 Refill Dionne Sahu 1.2.840.1 [id number] 21 [id number] Methodi 00:00:00 00:00:[address] 3.430.2.7 Hospit a .3.354305 l .8 2022-02-12 2022-02-12 Telephone Alo, 1.2.840.1 [id number] 2100 553659 Methodi 00:00:00 00:00:[address] B. 3.430.2.7 Hospit a .3.097123 l .8 2022-02-12 2022-02-12 Telephone Dionne Sahu 1.2.840.1 [id number] Methodi 00:00:00 00:00:[address] 3.430.2.7 Hospit a .3.396994 l .8 2022-02-12 2022-02-12 Telephone Derrell 1.2.840.1 [id number] 2100 810414 Methodi 00:00:00 00:00:[address] 3.430.2.7 Hospit a .3.014437 l .8 2022-02-05 2022-02-05 Patient Nestor, 1.2.840.1 [id number] 52714 04862 Methodi 00:00:00 00:00:00 Outreach Nora 96258.1.[address] 3.430.2.7 Hospit a .3.629022 l .8 2022-01-19 2022-01-19 Telephone Alo, 1.2.840.1 [id number] 2100 641676 Methodi 00:00:00 00:00:[address] B. 3.430.2.7 Hospit a .3.829959 l .8 2022-01-17 2022-01-17 Telephone Joanna Espinosa 1.2.840.1 [id number] Methodi 00:00:00 00:00:[address] 3.430.2.7 Hospit a .3.845320 l .8 2022-01-16 2022-01-16 Refill Alo, 1.2.840.1 [id number] 613408 8411 Methodi 00:00:00 00:00:[address] B. 3.430.2.7 Hospit a .3.809120 l .8 2022-01-15 2022-01-15 Telephone Alo, 1.2.840.1 [id number] 2099 686765 Methodi 00:00:00 00:00:[address] B. 3.430.2.7 Hospit a .3.863723 l .8 2022-01-01 2022-01-01 Office Alo, 1.2.840.1 [id number] 711429 0480 Methodi 11:30:00 12:50:42 Visit Korin 62109.1.[address] B. 3.430.2.7 Hospit a .3.524975 l .8 2022-01-01 2022-01-01 Outpatient ALO [facility] [id number] 749 [place] 00:00:00 00:00:[address] KORIN [address] 2022-01-01 2022-01-01 Travel 1.2.840.1 1.2.842.850 2479 051739 Methodi 00:00:00 00:00:[address] 3.430.2.7 0.2.7.3.698 Ho spita .3.756470 084.8 l .8 2021-11-29 2021-11-29 Telephone Alo, 1.2.840.1 [id number] 2100 864690 Methodi 00:00:00 00:00:[address] B. 3.430.2.7 Hospit a .3.649929 l .8 2021-11-28 2021-11-28 Telephone Alo, 1.2.840.1 [id number] 2099 563803 Methodi 00:00:00 00:00:[address] B. 3.430.2.7 Hospit a .3.570950 l .8 2021-11-28 2021-11-28 Orders Alo, 1.2.840.1 047091292 653486 9248 Methodi 00:00:00 00:00:00 Only Korin 85386.1.[address] B. 3.430.2.7 Hospit a .3.437992 l .8 2021-11-26 2021-11-26 Telephone Alo, 1.2.840.1 [id number] 2099 252769 Methodi 00:00:00 00:00:[address] B. 3.430.2.7 Hospit a .3.861515 l .8 2021-11-23 2021-11-23 Telephone Alo, 1.2.840.1 569231069 2099721 Methodi 00:00:00 00:00:[address] B. 3.430.2.7 Hospit a .3.096694 l .8 2021-11-22 2021-11-22 Telephone Alo, 1.2.840.1 [id number] 2099661 Methodi 00:00:00 00:00:[address] B. 3.430.2.7 Hospit a .3.980755 l .8 2021-11-22 2021-11-22 Telephone Dionne Sahu 1.2.840.1 [id number] Methodi 00:00:00 00:00:[address] 3.430.2.7 Hospit a .3.002782 l .8 2021-11-21 2021-11-21 Office Alo, 1.2.840.1 505203082 228658 6471 Methodi 15:30:00 16:30:44 Visit Korin 94170.1.[address] B. 3.430.2.7 Hospit a .3.085163 l .8 2021-11-21 2021-11-21 Outpatient ALO [facility] [id number] 501 [place] 00:00:00 00:00:00 KORIN [address] 2021-11-21 2021-11-21 Travel 1.2.840.1 1.2.712.740 0603 136808 Methodi 00:00:00 00:00:[address] 3.430.2.7 0.2.7.3.698 Ho spita .3.793072 084.8 l .8 2021-11-16 2021-11-16 Telephone Alo, 1.2.840.1 [id number] 2100 147512 Methodi 00:00:00 00:00:[address] B. 3.430.2.7 Hospit a .3.306796 l .8 2021-11-01 2021-11-01 Refill Alo, 1.2.840.1 381973031 301012 7183 Methodi 00:00:00 00:00:[address] B. 3.430.2.7 Hospit a .3.788058 l .8 2021-10-30 2021-10-30 Telephone Alo, 1.2.840.1 [id number] 2099 742119 Methodi 00:00:00 00:00:[address] B. 3.430.2.7 Hospit a .3.111372 l .8 2021-10-28 2021-10-28 Refill Alo, 1.2.840.1 760438810 133897 7553 Methodi 00:00:00 00:00:[address] B. 3.430.2.7 Hospit a .3.621163 l .8 2021-10-25 2021-10-25 Telemedici Alo, 1.2.840.1 [id number] 094 4359887 Methodi 14:30:00 14:55:33 ne Korin 76952.1.[address] B. 3.430.2.7 Hospit a .3.448374 l .8 2021-10-25 2021-10-25 [id number] 611 [place] 00:00:00 00:00:[address] KORIN [address] 2021-10-25 2021-10-25 Telephone Alo, 1.2.840.1 [id number] 2099 [id number] Methodi 00:00:00 00:00:[address] B. 3.430.2.7 Hospit a .3.119665 l .8 2021-10-24 2021-10-24 Travel 1.2.840.1 1.2.715.438 9267 551761 Methodi 00:00:00 00:00:[address] 3.430.2.7 0.2.7.3.698 Ho spita .3.776797 084.8 l .8 2021-10-08 2021-10-08 Johanna Kim, 1.2.840.1 [id number] 986650 5649 Methodi 00:00:00 00:00:00 Lisa Keyes 95030.1.1 363 s t 3.430.2.7 Hospit a .3.643030 l .8 2021-09-06 2021-09-06 Treatment Lisa Kim 1.2.840.1 104 840170 [id number] Methodi 12:00:00 12:56:20 Alea Mack 18172.1.[address] 3.430.2.7 Hospit a .3.330000 l .8 2021-09-06 2021-09-06 Outpatient WEINER, [facility] [id number] 064 [place] 00:00:00 00:00:00 LISA 841 Method i 2021-09-04 2021-09-04 Travel 1.2.840.1 1.2.292.012 9360 578122 Methodi 00:00:00 00:00:00 87408.1.1 350.1.13.43 673 3.430.2.7 0.2.7.3.698 Ho spita .3.333377 084.8 l .8 2021-08-17 2021-08-17 Outpatient WEINER, [facility] [id number] 770 [place] 00:00:00 00:00:00 LISA 827 Method i 2021-08-14 2021-08-14 Outpatient WEINER, [facility] [id number] 770 [place] 00:00:00 00:00:00 LISA 825 Method i 2021-08-11 2021-08-11 Outpatient WEINER, [facility] [id number] 770 [place] 00:00:00 00:00:00 LISA 824 Method i 2021-08-09 2021-08-09 Outpatient WEINER, [facility] [id number] 770 [place] 00:00:00 00:00:00 LISA 822 Method i 2021-08-02 2021-08-02 Outpatient WEINER, [facility] [id number] 809 [place] 00:00:00 00:00:00 LISA 295 Method i 2021-07-31 2021-07-31 Outpatient WEINER, [facility] [id number] 648 [place] 00:00:00 00:00:00 LISA 882 Method i 2021-07-11 2021-07-11 Outpatient WEINER, [facility] [id number] 250 [place] 00:00:00 00:00:00 LISA 485 Method i 2021-07-06 2021-07-06 Outpatient WEINER, [facility] [id number] 022 [place] 00:00:00 00:00:00 LISA 339 Method i 2021-07-06 2021-07-06 Outpatient SONNYER, [facility] [id number] 022 [place] 00:00:00 00:00:00 LISA [address] 2021-07-04 2021-07-04 Outpatient WEINER, [facility] [id number] 216 [place] 00:00:00 00:00:00 LISA [address] 2021-06-29 2021-06-29 Outpatient ALO, [facility] [id number] 823 [place] 00:00:00 00:00:00 KORIN [address] 2021-05-24 2021-05-24 Outpatient [facility] [id number] 031 [place] 00:00:00 00:00:[address] 2020-12-28 2020-12-28 Outpatient ALO, [facility] [id number] 500 [place] 00:00:00 00:00:00 KORIN [address] 2020-09-09 2020-09-09 Outpatient SAHU, DIONNE [facility] [id number] [place] 00:00:00 00:00:[address] 2020-06-29 2020-06-29 Outpatient ALO, [facility] [id number] 662 [place] 00:00:00 00:00:00 KORIN [address] 2020-06-29 2020-06-29 Outpatient ALO, [facility] [id number] 663 [place] 00:00:00 00:00:00 KORIN [address] 2019-12-15 2019-12-15 Outpatient ALO, [facility] [id number] 794 [place] 00:00:00 00:00:00 KORIN [address] 2019-11-13 2019-11-13 Outpatient ANDRES, [facility] [id number] 339 [place] 00:00:00 00:00:00 WILLEM [address] 2019-11-13 2019-11-13 Outpatient ANDRES, [facility] [id number] 346 [place] 00:00:00 00:00:00 WILLEM [address] 2019-08-20 2019-08-20 Outpatient SAHU, DIONNE [facility] [id number] [place] 00:00:00 00:00:[address] 2019-08-20 2019-08-20 Outpatient DIONNE SAHU [facility] 972 [id number] [place] 00:00:00 00:00:00 736 Method i 2019-06-11 2019-06-11 Outpatient ALO [facility] [id number] 798 [place] 00:00:00 00:00:00 KORIN Reynolds2 Meth [address] Results Test Description Test Time Test Comments Results Result Comments Source Comprehensive metabolic panel 2022-07-25 20:44:00 Test Item Value Reference Range Interpretation Comme nts Glucose (test code = 89 mg/dL 65-99 Fastin g reference 2345-7) interval BUN (test code = 3094-0) 29 mg/dL 7-25 H Creatinine (test code = 0.98 mg/dL 0.60-0.95 H 2160-0) eGFR (test code = 8257) See_Comment L The eGFR is based on the CKD-EPI 202 1 equation. To ca lculate the new eGFR fr om a previous Creati nine or Cystatin Cresul t, go to [email or web address]://www.kid katherine.org /professionals/ kdoqi/g fr%5Fcalculator [Automated mess age] The system [facility] [employer] generated this result transmitted ref erence range: > OR = 6 0 mL/min/1.73m2. The reference range was not used to int erpret this result as normal/abnormal . BUN/creatinine ratio (test See_Comment H [Automated message] code = 3097-3) The system [employer] [facility] generated this result transmitted ref erence range: 6 - 22 ( calc). The reference r maxx was not used to interpret this result as normal/abnor mal. Sodium (test code = 140 mmol/L 433-460 7522-2) Potassium (test code = 4.5 mmol/L 3.5-5.3 2823-3) Chloride (test code = 105 mmol/L 98-110 2075-0) CO2 (test code = 2027-) 30 mmol/L 20-32 Calcium (test code = 8.9 mg/dL 8.6-10.4 25383-3) Protein (test code = 6.3 g/dL 6.1-8.1 2885-2) Albumin, S (test code = 3.8 g/dL 3.6-5.1 1751-7) Globulin, total (test code See_Comment [Automated message] = 18810-7) The system whic h generated this result transmitted ref erence range: 1.9 - 3. 7 g/dL (calc). The ref erence range was not u sed to interpret this result as normal/abnor mal. Albumin/globulin ratio See_Comment [Aut omated message] (test code = 1759-0) The sys tem which generated this result transmitted ref erence range: 1.0 - 2. 5 (calc). The ref erence range was not u sed to interpret this result as normal/abnor mal. Total bilirubin (test code 0.4 mg/dL 0.2-1.2 = 1974-) Alkaline phosphatase (test 55 U/L 37-153 code = 6768-6) AST (test code = 1920-8) 18 U/L 10-35 ALT (test code = 1742-6) 15 U/L 6-29 RAC (test code = RAC) Performing Organization Information: Site ID: [id number] Name: [facility] Address: [address] [place] [id number] Director: Torrey Grace Lab Interpretation (test Abnormal code = 14385-1) [id number] 20:44:00 Test Item Value Reference Range Interpretation Comments Cholesterol, total 134 mg/dL See_Comment [Automat ed (test code = 2093-3) message ] The system which generated this result transmitted reference range : <=200. The reference range was not used to interpret this result as normal/abnormal . HDL cholesterol 49 mg/dL See_Comment L [Automated (test code = 2085-9) message ] The system which generated this result transmitted reference range : > OR = 50. The reference range was not used to interpret this result as normal/abnormal . Triglycerides (test 47 mg/dL See_Comment [Automa peewee code = 2571-8) message] The system which generated this result transmitted reference range : <=150. The reference range was not used to interpret this result as normal/abnormal . LDL cholesterol mg/dL (calc) Reference ra nge: calculated (test <100 Desira ble code = 27346-2) range <100 m g/dL for primary prevention; <70 mg/dL for patients with C HD or diabetic patients with > or = 2 CHD risk factors. LDL-C is now calculated using the Isabel calculation, which is a validated novel method providin g better accuracy than the Friedewald equation in the estimation of LDL-C. Jean-Claude Sahu S et al. CESAR. 2013;310(19): 4362-4743 (http://educati on .[employer] .com/faq/IWT904 ) Cholesterol/HDL See_Comment [Automated ratio (test code = message] The 9830-1) system which generated this result transmitted reference range : <5.0 (calc). Th e reference range was not used to interpret this result as normal/abnormal . Non-HDL cholesterol See_Comment For mickie ents with (test code = diabetes plus 1 01499-0) major ASCVD ris k factor, treatin g to a non-HDL-C goal of <100 mg/dL (LDL-C of <70 mg/dL) is considered a therapeutic option. [Automated message] The system which generated this result transmitted reference range : <130 mg/dL (calc). The reference range was not used to interpret this result as normal/abnormal . RAC (test code = Performing RAC) Organization Information: Site ID: RGA Name: [facility] Address: [address] [place] [phone] Director: Tor[facility] Interpretation Abnormal (test code = 37230-2) [facility] [id number] 20:44:00 Test Item Value Reference Range Interpretation Comments Hemoglobin A1C See_Comment For the purpo se of (test code = screening for t he 4548-4) presence ofdiab etes: <5.7% Consisten t with the absence of diabetes5.7-6.4 % Consistent with increased risk for diabetes (prediabetes)> or =6.5% Consisten t with diabetes This a ssay result is consi stent with a decrease d riskof diabetes . Currently, no consensus exist s regarding use ofhemoglobin A1 c for diagnosis of di abetes in children. According to [place] Diabetes Associ ation (ADA)guidelines , hemoglobin A1c <7.0% represents optimalcontrol in non- di abetic patients. Differentmetric s may apply to specif ic patient populat ions. Standards of Nd dical Care in Diabetes(ADA). [Automated mess age] The system whic h generated this result transmitted ref erence range: <5.7 % o f total Hgb. The reference range was not used to int erpret this result as normal/abnormal . RAC (test code = Performing RAC) Organization Information: Site ID: A Name: [facility] Address: [address] [place] [phone] Director: Torrey Hammonds [facility] and ratio, random [id number] 20:44:00 Test Item Value Reference Range Interpretation Comments Creatinine, 103 mg/dL 20-275 urine (mg/dL) (test code = 2161-8) Microalbumin 1.7 mg/dL See Note: Reference Range : , urine Reference Range Not (test code = established 49711-5) Microalbumin See_Comment The ADA define s /creatinine abnormalities i n ratio (test albuminexcretio n as code = follows: Albumi maria del carmen 9318-7) Category Result (mcg/mg creatinine) Nor mal to Mildly increase d <30Moderately i ncreased 30-299 Severely increased > OR = 300 The ADA recomme nds that at least two of threespecimens collected withi n a 3-6 month period be abnormal before consider ing a patient to bewi thin a diagnostic javid lady. [Automated mess age] The system which ge nerated this result tra nsmitted reference range : <30 mcg/mg creat. T he reference range was not used to interpr et this result as normal/abnormal . RAC (test Performing code = RAC) Organization Information: Site ID: A [facility] Address: [address] [place] [phone] Director: Torrey [facility] HospitalBasic metabolic [id number] 09:45:00 Test Item Value Reference Interpretation Comments Range Glucose (test code 94 mg/dL 65-99 Fasting reference = 2345-7) interval BUN (test code = 30 mg/dL 7-25 H 3094-0) Creatinine (test 1.10 mg/dL 0.60-0.88 H For patient s >49 code = 2160-0) years of age, the reference limit for Creatinine is approximately 1 3% higher for peopleidentifie d as -Sunita n. EGFR Non-Afr. See_Comment L [Automated me ssage] Citizen Of [place] (test code The syst em which = 2775) generated this result transmit peewee reference range : > OR = 60 mL/min/1.73m2. The reference range was not used to interpret this result as normal/abnormal . EGFR See_Comment L [Automated mes cinth[place]] Citizen [place] (test code The syst em which = 2774) generated this result transmit peewee reference range : > OR = 60 mL/min/1.73m2. The reference range was not used to interpret this result as normal/abnormal . BUN/creatinine See_Comment H [Automated m essage] ratio (test code = The syste m which 3097-3) generated this result transmit peewee reference range : 6 - 22 (calc). The reference range was not used to interpret this result as normal/abnormal . Sodium (test code = 137 mmol/L 083-010 2007-2) Potassium (test 4.6 mmol/L 3.5-5.3 code = 2823-3) Chloride (test code 103 mmol/L 98-110 = 2075-0) CO2 (test code = 27 mmol/L 20-32 2028-05) Calcium (test code 9.4 mg/dL 8.6-10.4 = 87627-9) MICHAEL (test code = COLLECTION MICHAEL) REQUIREMENTS NOT MET. PATIENT ADVISED TO RETURN. RAC (test code = Performing RAC) Organization Information: Site ID: [facility] Name: [facility] Address: [address] [place] [id number] Director: Torrey Grace Lab Interpretation Abnormal (test code = 31757-7) [facility] WITH REF[facility] TO [id number] 22:31:00 Test Item Value Reference Interpretation Comments Range Color, UA (test code YELLOW YELLOW = 5778-6) Appearance (test CLEAR CLEAR code = 5767-9) Specific gravity, 1.001-1.035 urine (test code = 5811-5) pH, urine (test code < OR = 5.0 5.0-8.0 = 5803-2) Glucose, urine (test NEGATIVE NEGATIVE code = 49609-3) Bilirubin, UA (test NEGATIVE NEGATIVE code = 5770-3) Ketones, UA (test TRACE NEGATIVE A code = 2514-8) Occult blood, urine NEGATIVE NEGATIVE (test code = 5794-3) Protein, UA (test TRACE NEGATIVE A code = 82186-3) Nitrite, UA (test POSITIVE NEGATIVE A code = 5802-4) Leukocyte esterase, 2+ NEGATIVE A UA (test code = 5799-2) WBC, UA (test code = 20-40 See_Comment A [Autom ated 5821-4) message] The sy stem which generated this result transmitted reference range : < OR = 5 /HPF. Th e reference range was not used to interpret this result as normal/abnormal . RBC, UA (test code = NONE SEEN See_Comment [Autom ated 41807-2) message] The sy stem which generated this result transmitted reference range : < OR = 2 /HPF. Th e reference range was not used to interpret this result as normal/abnormal . Squamous epithelial 10-20 See_Comment A [Automa peewee cells, UA (test code message ] The system = 01667-2) which generated this result transmitted reference range : < OR = 5 /HPF. Th e reference range was not used to interpret this result as normal/abnormal . Bacteria, UA (test MANY NONE SEEN /HPF A code = 5769-5) Hyaline casts, UA NONE SEEN NONE SEEN /LPF (test code = 5796-8) Urine culture (test SEE NOTE A CULTURE , URINE, code = 630-4) ROUTINE Micro Number: [id number] Test Status: Fi nal Specimen Source : Urine Specimen Quality: Adequa te Result: Greater than 100,000 CF U/mL of Escherichia coli (ESBL) 10,000-49,000 CFU/mL of Group B Streptococcus isolated Beta-hemolytic streptococci ar e predictably susceptible to Penicillin and other beta-lact ams. Susceptibility testing not routinely performed. Plea se contact the laboratory with in 3 days if susceptibility testing is jozef red. Comment: Erythromycin an d clindamycin are not recommended for treatment of urinary tract infections, but clindamycin may be useful for treatment in penicillin melissa rgic patients for rectovaginal colonization or for intrapartum prophylaxis if indicated. E.c srinivas (ESBL) - INT OLIVIER AMOX/CLAVULANAT E S 4 AMPICILLIN R >=32 1 AMP/SULBACT AM S 4 CEFAZOLIN R >=64 2 CEFEPIME S 2 CEFTRIAXONE R > =64 CIPROFLOXACIN S <=0.25 GENTAMIC IN S <=1 IMIPENEM S <=0.25 LEVOFLOX ACIN S <=0.12 NITROFURANTOIN I 64 PIP/TAZOBACTAM S <=4 TOBRAMYCIN S <=1 TRIMETHOPRIM/CHAMBERS LFA S <=20 ESBL RES ULT: * 3 S=Suscept ible I=Intermediate R=Resistant * = Not TestedNR = Not Reported NN = See Therapy Comment s THERAPY COMMENT S Note 1: Extende d spectrum beta-lactamase (ESBL) producin g organisms demonstrate decreased activ ity with penicillin s, cephalosporins and aztreonam. Note 2: For uncomplicat ed UTI caused by E . coli, K. pneumo niae or P. mirabilis : Cefazolin is susceptible if OLIVIER <32 mcg/mL and predicts susceptible to the oral agents cefaclor, cefdi tammy, cefpodoxime, cefprozil, cefuroxime, cephalexin and loracarbef. Not e 3: The organism awad s been confirmed as an ESBL produce r. RAC (test code = Performing RAC) Organization Information: Site ID: [facility] Name: [facility] Address: [address] [place] [address] Director: Torrey Grace Lab Interpretation Abnormal (test code = 75639-3) [facility] [id number] 05:07:00 Test Item Value Reference Range Interpretation Comments TSH (test See_Comment [Automated mes cinthia] code = The system ic h 3016-3) generated this result transmit peewee reference range : 0.40 - 4.50 mIU /L. The reference r maxx was not used to interpret this result as normal/abnormal . MICHAEL (test PATIENT UNABLE TO code = MICHAEL) VOID; ADVISED TO RETURN FOR COLLECTION. RAC (test Performing code = RAC) Organization Information: Site ID: [facility] Name: [facility] Address: [address] [place] [phone] Director: Torrey Grace [facility] with platelet and [id number] 05:07:00 Test Item Value Reference Range Interpretation Comments WBC (test code = See_Comment [Automated 6690-2) message] The system which generated this result transmitted reference range : 3.8 - 10.8 Thousand/uL. Th e reference range was not used to interpret this result as normal/abnormal . RBC (test code = See_Comment [Automated 789-8) message] The system which generated this result transmitted reference range : 3.80 - 5.10 Million/uL. The reference range was not used to interpret this result as normal/abnormal . HGB (test code = 12.4 g/dL 11.7-15.5 718-7) HCT (test code = 36.6 % 35.0-45.0 4544-3) MCV (test code = 91.3 fL 80.0-100.0 787-2) MCH (test code = 30.9 pg 27.0-33.0 785-6) MCHC (test code = 33.9 g/dL 32.0-36.0 786-4) RDW (test code = 13.1 % 11.0-15.0 788-0) Platelet count See_Comment [Automated (test code = message] The 777-3) system which generated this result transmitted reference range : 140 - 400 Thousand/uL. Th e reference range was not used to interpret this result as normal/abnormal . MPV (test code = 10.8 fL 7.5-12.5 776-5) Neutrophils, See_Comment [Automated absolute (test message] The code = 751-8) system which generated this result transmitted reference range : 1,500 - 7,800 cells/uL. The reference range was not used to interpret this result as normal/abnormal . Lymphocytes, See_Comment [Automated absolute (test message] The code = 731-0) system which generated this result transmitted reference range : 850 - 3,900 cells/uL. The reference range was not used to interpret this result as normal/abnormal . Monocytes, See_Comment [Automated absolute (test message] The code = 742-7) system which generated this result transmitted reference range : 200 - 950 cells/uL. The reference range was not used to interpret this result as normal/abnormal . Eosinophils, See_Comment [Automated absolute (test message] The code = 711-2) system which generated this result transmitted reference range : 15 - 500 cells/uL. The reference range was not used to interpret this result as normal/abnormal . Basophils, See_Comment [Automated absolute (test message] The code = 704-7) system which generated this result transmitted reference range : 0 - 200 cells/u L. The reference range was not used to interpr et this result as normal/abnormal . Neutrophils (test 56 % code = 770-8) Lymphocytes (test 33.3 % code = 736-9) Monocytes (test 7.3 % code = 5905-5) Eosinophils (test 2.9 % code = 713-8) Basophils + RC 0.5 % (test code = 706-2) MICHAEL (test code = PATIENT UNABLE TO MICHAEL) VOID; ADVISED TO RETURN FOR COLLECTION. RAC (test code = Performing RAC) Organization Information: Site ID: [facility] Name: [facility] Address: [address] [place] [phone] Director: Torrey Grace [facility]
[2022-08-30] MEDS ORDERED: ACETAMINOPHEN 500 MG TAB ONE (10:40)
--- NOTE | 2022-08-30 10:51 | RAD REPORT ---
EXAM DESCRIPTION: RAD - Chest Single View - 08/30/2022 10:46 am CLINICAL HISTORY: COUGH COMPARISON: Chest Single View dated 01/20/2022 FINDINGS: Lines: None. Lungs: No evidence of edema or pneumonia. Pleural: No significant pleural effusions or pneumothorax. Cardiac: The heart size is within normal limits. Mediastinum: Within normal limits. Bones: No acute fractures. Sternotomy. Other: None IMPRESSION: No acute cardiopulmonary disease.
[2022-08-30 11:39] LABS: SARS-COV-2 RT PCR POSITIVE (NEGATIVE)
--- NOTE | 2022-08-30 12:07 | ER ---
Nurse's Notes [facility] Name: Darlyn Nicole Age: 82 yrs Sex: Female : 1940 Arrival Date: 08/30/2022 Time: 10:16 Bed 8 Private MD: Diagnosis: Coronavirus infection, unspecified Presentation: 08/30 10:21 Chief complaint: EMS states: Body aches, chills, fever, malaise, nausea, generalized hb weakness, and cough x 1 week. Dizziness since yesterday. BP 160/80, T 99.2, BGL 92. Coronavirus screen: Client presents with at least one sign or symptom that may indicate coronavirus-19. Standard/surgical mask placed on the client. Provider contacted for isolation considerations. Ebola Screen: No symptoms or risks identified at this time. Initial Sepsis Screen: Does the patient meet any 2 criteria? No. Patient's initial sepsis screen is negative. Does the patient have a suspected source of infection? No. Patient's initial sepsis screen is negative. Risk Assessment: Do you want to hurt yourself or someone else? Patient reports no desire to harm self or others. Onset of symptoms was August 24, 2022. 10:21 Method Of Arrival: EMS: [facility] hb 10:21 Acuity: JOSEFINA 3 hb - Immunization history:: Adult Immunizations up to date. - Social history:: Smoking status: Patient denies any tobacco usage or history of. Screenin:26 [facility] ED Fall Risk Assessment (Adult) Score/Fall Risk Level 0 - 2 = Low Risk hb Oriented to surroundings, Maintained a safe environment. Abuse screen: Denies threats or abuse. Denies injuries from another. Nutritional screening: No deficits noted. Tuberculosis screening: No symptoms or risk factors identified. Assessment: 10:25 General: Appears in no apparent distress. Behavior is calm, cooperative. Pain: Pain hb currently is 5 out of 10 on a pain scale. Neuro: Level of Consciousness is awake, alert, obeys commands, Oriented to person, place, time, situation, Reports dizziness. Cardiovascular: Patient's skin is warm and dry. Respiratory: Respiratory effort is even, unlabored, Respiratory pattern is regular, symmetrical. GI: Reports nausea. : No signs and/or symptoms were reported regarding the genitourinary system. EENT: No signs and/or symptoms were reported regarding the EENT system. Derm: Skin is pink, warm \T\ dry. Musculoskeletal: Reports body aches. 11:44 Reassessment: Patient appears in no apparent distress at this time. Patient and/or hb family updated on plan of care and expected duration. Pain level reassessed. Patient is alert, oriented x 3, equal unlabored respirations, skin warm/dry/pink. Vital Signs: 10:21 BP 167 / 80; Pulse 88; Resp 20; Temp 99.9(O); Pulse Ox 100% on R/A; Weight 57.61 kg; hb Height 5 ft. 6 in. (167.64 cm); Pain 5/10; 11:42 BP 137 / 55; Pulse 70; Resp 19; Pulse Ox 95% on R/A; hb 10:21 Body Mass Index 20.50 (57.61 kg, 167.64 cm) hb ED Course: 10:16 Patient arrived in ED. kj1 10:18 Korin Brewster MD is Attending Physician. sd2 10:21 Joyce Collins RN is Primary Nurse. hb 10:24 Triage completed. hb 10:25 Arm band placed on. hb 10:36 COVID-19/FLU A+B Sent. ko1 10:48 XRAY Chest (1 view) In Process Unspecified. EDMS Administered Medications: 10:38 Drug: Tylenol 1000 mg Route: PO; ko1 Outcome: 12:06 Discharge ordered by . sd2 13:00 Patient left the ED. hb Signatures: Dispatcher [employer] EDMS Joyce Collins RN RN Gisselle Corona kj1 Korin Brewster MD MD sd2 Taylor Anne RN RN ko1
--- NOTE | 2022-08-30 12:07 | EDPHYS ---
Physician Documentation [facility] Name: Darlyn Nicole Age: 82 yrs Sex: Female : 1940 Arrival Date: 08/30/2022 Time: 10:16 Bed 8 Private MD: ED Physician Korin Brewster HPI: 08/30 10:30 This 82 yrs old Female presents to ER via EMS with complaints of Flu Symptoms. sd2 10:30 82 yo F presents via EMS with CC of flu-like symptoms. Reports started last night with sd2 cough, body aches, chills and malaise. Reports occasional lightheadedness. Denies any fever, sick contacts, CP, SOB, vomiting or diarrhea. Did not take any medications at home for her symptoms. . - Immunization history:: Adult Immunizations up to date. - Social history:: Smoking status: Patient denies any tobacco usage or history of. ROS: 10:30 Eyes: Negative for injury, pain, redness, and discharge, Cardiovascular: Negative for sd2 chest pain, palpitations, and edema, Respiratory: Negative for shortness of breath, cough, wheezing. Abdomen/GI: Negative for abdominal pain, nausea, vomiting, diarrhea. MS/Extremity: Negative for injury and deformity, Skin: Negative for injury, rash, and discoloration, Neuro: Negative for headache, numbness and tingling. 10:30 Constitutional: Positive for chills, malaise, Negative for weight loss. Exam: 10:30 Constitutional: This is a well developed, well nourished patient who is awake, alert, sd2 and in no acute distress. Head/Face: Normocephalic, atraumatic. Eyes: EOMI, normal conjunctiva bilaterally Chest/axilla: Normal chest wall appearance and motion. Nontender with no deformity. Cardiovascular: Regular rate and rhythm with a normal S1 and S2. No gallops, murmurs, or rubs. 2+ distal pulses. Respiratory: Lungs have equal breath sounds bilaterally, clear to auscultation and percussion. No rales, rhonchi or wheezes noted. No increased work of breathing, no retractions or nasal flaring. Abdomen/GI: Soft, non-tender, with normal bowel sounds. No guarding or rebound. No evidence of tenderness throughout. Skin: Warm, dry with normal turgor. Normal color with no rashes, no lesions, and no evidence of cellulitis. MS/ Extremity: Pulses equal, no cyanosis. Neurovascular intact. Full, normal range of motion. Ambulatory without difficulty. Psych: Awake, alert, with orientation to person, place and time. Behavior, mood, and affect are within normal limits. 12:08 ECG was reviewed by the Attending Physician. Sinus rhythm, rate 64, no STEMI criteria, sd2 1st degree AV block Vital Signs: 10:21 BP 167 / 80; Pulse 88; Resp 20; Temp 99.9(O); Pulse Ox 100% on R/A; Weight 57.61 kg; hb Height 5 ft. 6 in. (167.64 cm); Pain 5/10; 11:42 BP 137 / 55; Pulse 70; Resp 19; Pulse Ox 95% on R/A; hb 10:21 Body Mass Index 20.50 (57.61 kg, 167.64 cm) hb MDM: 10:18 Patient medically screened. sd2 10:30 Differential Diagnosis Differential diagnosis includes but is not limited to: Viral sd2 URI, acute otitis media, acute otitis externa, pneumonia, UTI, COVID, flu, herpangina among others. Data reviewed: vital signs, nurses notes. 12:04 Data reviewed: lab test result(s), EKG, radiologic studies. Counseling: I had a sd2 detailed discussion with the patient and/or guardian regarding: the historical points, exam findings, and any diagnostic results supporting the discharge/admit diagnosis, lab results, radiology results, the need for outpatient follow up, to return to the emergency department if symptoms worsen or persist or if there are any questions or concerns that arise at home. Medical screen evaluation completed. [facility] emergency medical condition absent. ED course: Labs and imaging reviewed. EKG with no significant changes. CXR with no evidence of pneumonia. COVID positive. Advised pt of results. No respiratory distress or hypoxia. The patient is resting comfortably at time of my repeat exam with stable vital signs. She was advised of continued supportive care for her symptoms. We did discuss Paxlovid but according to patient's current medication list, this would be contraindicated at this time. The patient does not meet criteria for needing steroids or further treatment aside from [id number] medications for supportive care. She was advised to follow-up with her PCP for recheck and to continue to monitor her symptoms closely at home. She verbalizes understanding of discharge plan and strict return precautions.. 08/30 10:29 Order name: COVID-19/FLU A+B; Complete Time: 11:44 sd2 08/30 10:29 Order name: XRAY Chest (1 view); Complete Time: 11:02 sd2 08/30 10:29 Order name: EKG - Nurse/Tech; Complete Time: 11:06 sd2 Administered Medications: 10:38 Drug: Tylenol 1000 mg Route: PO; ko1 Disposition Summary: 08/30/22 12:06 Discharge Ordered Location: Home sd2 Problem: new sd2 Symptoms: have improved sd2 Condition: Stable sd2 Diagnosis - Coronavirus infection, unspecified sd2 Followup: sd2 - With: Private Physician - When: 2 - 3 days - Reason: Recheck today's complaints, Continuance of care, Re-evaluation by your physician Discharge Instructions: - Discharge Summary Sheet sd2 - COVID-19 sd2 - 10 Things You Can Do to Manage Your COVID-19 Symptoms at Home - [facility] sd2 Forms: - Medication Reconciliation Form sd2 - Thank You Letter sd2 - Antibiotic Education sd2 - Prescription Opioid Use sd2 Prescriptions: - Zofran 4 mg Oral Tablet - take 1 tablet by ORAL route every 6 hours As needed; 15 tablet; Refills: 0, sd2 Product Selection Permitted Signatures: Dispatcher [employer] Joyce Nance RN RN Korin Brewster MD MD sd2 Taylor Anne RN RN ko1
[2022-08-30 13:04] VITALS: TEMP 99.9
[2022-08-30 13:05] VITALS: BP 137/55; O2SAT 95
== END 2022-08-30 13:00 | disposition home or self-care (01) ==
LOC: ER 10:15
DX: U07.1 COVID-19 (principal)
CPT/HCPCS: 0240U; 71045; 99284

== ENCOUNTER 2022-10-29 18:31 | Emergency (ER) | payer OTHER, MEDICARE ==
--- OUTSIDE RECORDS SUMMARY | 2022-10-29 18:37 | XMS REPORT | Continuity of Care Document ---
:1940 Author Organization [facility] t Address [address] [facility] [address] [place] [address] Care Team Providers Name Role Phone Taryn JOHNSON, Korin Qureshi Primary Care Physician [phone] Taryn JOHNSON, Korin Desir Attending Clinician Joanna Espinosa MA Attending Clinician Unavailable Dionne Sahu MD Attending Clinician Osiris Vazquez MA Attending Clinician Unavailable Guillermo JOHNSON, Augustine Ochoa Attending Clinician [phone] George Granados PA-C Attending Clinician Blaise Kim MD Attending Clinician Lenore Peter RN Attending Clinician Unavailable Drake JOHNSON, Yvonne Burrell Attending Clinician [phone] Robin Dove MA Attending Clinician Unavailable Nora Baez Attending Clinician Unavailable Alea Mack PT Attending Clinician Unavailable WILLEM CAMPOS Attending Clinician Unavailable Payers Payer Name Policy Type Policy Number Effective Date Expiration Date Luis Alberto smith [employer] MEDICARE [id number] 2017 SUPPLEMENT 00:00:00 Problems Condition Condition Condition Status Onset Resolution Last Treating Co mments Source Name Details Category Date Date Treatment Clinician Date History of History of Disease Active Overview : [facility]i cervical cervical 8-[address] fracture fracture 00:00: g of [...] Hospi ta involving involving 00 note l [place] might be coronary coronary different artery of artery of from the [place] original. heart heart Added without without automatic angina angina ally from pectoris pectoris request for surgery [id number] monisha Lopez Assessmen t & Plan: Formattin g of this note might be different from the original. Chest pain Chest pain Disease Active Overview : [facility] 2-[address] 00:00: g of this Hospita 00 note l might be different from the original. Added automatic ally from request for surgery [id number] SOB SOB Disease Active Overview: Method i (shortness (shortness 2-[address] of breath) of breath) 00:00: g of this Hospita 00 note l might be different from the original. Added automatic ally from request for surgery [id number] Benign Benign Disease Active 2016-09 Methodi essential [...] 05/2016 wnl/2018 wnl10/201 9 wnl10/202 0 wnl Gastroesop Gastroesop Disease Active M ethodi hageal hageal 30 st reflux reflux 00:00: Hospita disease disease 00 l Benign Benign Disease Active [facility]i hypertensi hypertensi 30 st on on 00:00: Hospita 00 l Hyperchole Hyperchole Disease Active M ethodi steremia steremia 30 st 00:00: Hospita 00 l Impaired Impaired Disease Active Metho di fasting fasting 03-01 st glucose glucose 00:00: Hospita 00 l Osteopenia Osteopenia Disease Active Overview : [facility] 03-[address] 00:00: g of this Hospita 00 note l might be different from the original. Overview: 04/2015 spine +4.4 hip -1.5 (left increased and right decreased )L -1.5 R-1.59/20 18 spine +5.8 hips -0.1 frax 19.4 11.4 RLS RLS Disease Active Overview: Method i (restless (restless 03-01 Formattin s t legs legs 00:00: g of this Hospita syndrome) syndrome) 00 note l might be different from the original. 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 Overview: 10/2014 TSH 0.4 and free t4 wnl Syncope Syncope Disease Active Overview: Meth bob [address] 00:00: g of this Hospita 00 note l might be different from the original. Overview: Dr. Riddle (PET) normal stress, denst coronary calcFor tilt table and holterHas fu every 6 monthsHad a sleep test the results are pending Vitamin D Vitamin D Disease Active St deficiency deficiency [facility] Allergies, Adverse Reactions, Alerts Allergy Allergy Status Severity Reaction(s) Onset Inactive Treating Comm ents Source Name Type Date Date Clinician Nitrofur Propensi Active 2016-09 Side Method i antoin ty [...] Date Stop Date Source Natural mother Arthritis [facility] Natural mother Hypertension [facility] Natural mother Arthritis [facility] Natural mother Hypertension [facility] Natural father Hypertension [facility] Natural father Stroke [facility] Natural father Hypertension [facility] Natural father Stroke [facility] Natural brother Heart attack [facility] Social History Social Habit Start Date Stop Date Quantity Comments Source Alcohol intake 2022-09-18 2022-09-18 Current [facility] 00:00:00 00:00:00 non-drinker of Hospital alcohol (finding) Tobacco use and 2022-04-19 2022-04-19 Smokeless tobacco [facility] exposure 00:00:00 00:00:00 non-user Hospital Sex Assigned At [birth year] [facility] [place] [facility] 00:00:00 [facility] Smoking Status Start Date Stop Date Source Never smoked tobacco [facility] Medications Ordered Filled Start Stop Current Ordering Indication Dosage Frequency Signature Comments Components Source Medication Medication Date Date Medication? Clinician (SIG) Name Name ciprofloxac 2022- Yes 250mg Q.5D Take 1 Me thodi in HCl 10-[address] (Cipro) 250 00:00: 05:59 (250 mg Ho spita MG tablet 00 :00 total) by l mouth 2 (two) times a day for 3 days. MAGNESIUM Yes 500mg QD Take 500 Met hodi ORAL 1-[address] 15:32: mouth Hospita 57 nightly. l cholecalcif Yes 2000U QD Take 1 Met hodi jamee, 1-[address] vitamin D3, 15:32: (2,000 Hosp tova 50 mcg 57 Units l (2,000 total) by unit) mouth capsule daily. capsule gabapentin Yes Take 300 Met hodi (NEURONTIN) 1-[address] 300 mg 00:00: dinner and Hospi ta capsule 00 600 mg l before sleep for RLS. propranolol 2023- Yes 60mg QD Take 1 Met hodi [place] (Inderal 109-[address] LA) 60 MG 00:00: 05:59 (60 mg Hospi ta 24 hr 00 :00 total) by l capsule mouth daily. cefdinir 2022- No 300mg Q.5D Take 1 Metho di (OMNICEF) 09-[address] 300 MG 00:00: 05:59 (300 mg Hospita capsule 00 :00 total) by l mouth 2 (two) times a day for 3 days. nirmatrelvi 2021-09- No [id number] 3{tbl} Q.5D Take 3 Methodi r-ritonavir 09-05 tablets by s t (Paxlovid, 00:00: 05:59 mouth 2 Hos lars EUA,) 300 00 :00 (two) l mg (150 mg times a x 2)-100 mg day for 5 per Dose days. Folbee 2021-09 Yes TAKE ONE Methodi 2.5-25-1 mg 2-02 (1) st tablet 00:00: TABLET(S) Hospit a 00 BY MOUTH l ONCE A DAY. Folbee 2021-09 Yes TAKE ONE Methodi 2.5-25-1 mg 2-02 (1) st tablet 00:00: TABLET(S) Hospit a 00 BY MOUTH l ONCE A DAY. mirabegron 2021-09 Yes 50mg QD Take 1 Metho di (Myrbetriq) -29 tablet (50 st 50 mg 00:00: mg total) Hospita tablet 00 by mouth l extended daily. release 24 hr mirabegron 2021-09 Yes 50mg QD Take 1 Metho di (Myrbetriq) -29 tablet (50 st 50 mg 00:00: mg total) Hospita tablet 00 by mouth l extended daily. release 24 hr atorvastati 2021-09 Yes 40mg QD Take 1 Meth bob n (LIPITOR) -28 tablet (40 st 40 mg 00:00: mg total) Hospita tablet 00 by mouth l daily. atorvastati 2021-09 Yes 40mg QD Take 1 Meth bob n (LIPITOR) -28 tablet (40 st 40 mg 00:00: mg total) Hospita tablet 00 by mouth l daily. amLODIPine 2021-09 No 2.5mg QD Take 1 Met hodi (NORVASC) 09-[address] 2.5 mg 00:00: 05:59 (2.5 mg Hospita tablet 00 :00 total) by l mouth daily. amLODIPine 2021-09 No 2.5mg QD Take 1 Met hodi (NORVASC) 09-[address] 2.5 mg 00:00: 05:59 (2.5 mg Hospita tablet 00 :00 total) by l mouth daily. cholecalcif 2021-09 Yes 2000U QD Take 1 Met hodi jamee, 1-[address] vitamin D3, 12:04: (2,000 Hosp [...] 00 BY MOUTH l ONCE A DAY. omeprazole 2021-09 Yes TAKE ONE Met hodi (PriLOSEC) 1-20 (1) st 20 MG 00:00: CAPSULE(S) Hospit a capsule 00 BY MOUTH l ONCE A DAY. desvenlafax 2021-09 Yes TAKE ONE Me thodi ine 1-16 (1) st (PRISTIQ) 00:00: TABLET(S) Hos lars 50 MG 24 hr 00 BY MOUTH l tablet ONCE A DAY. propranoloL 2021-09 Yes 20mg [id number] Take 1 Methodi (INDERAL) -16 [id number] tablet (20 st 20 MG 00:00: 3D mg total) Hospita tablet 00 by mouth 3 l (three) times a day. desvenlafax 2021-09 Yes TAKE ONE Me thodi ine 1-16 (1) st (PRISTIQ) 00:00: TABLET(S) Hos lars 50 MG 24 hr 00 BY MOUTH l tablet ONCE A DAY. propranoloL 2021-09 No 20mg [id number] Take 1 Methodi (INDERAL) 1-16 - [id number] tablet (20 st 20 MG 00:00: 00:00 3D mg total) Hospit a tablet 00 :00 by mouth 3 l (three) times a day. meloxicam 2021-09 No TAKE ONE Met hodi (MOBIC) 7.5 09-0222 (1) st mg tablet 00:00: 00:00 TABLET(S) Ho spita 00 :00 BY MOUTH l ONCE A DAY. meloxicam 2021-09- No TAKE ONE Met hodi (MOBIC) 7.5 09-0222 (1) st mg tablet 00:00: 00:00 TABLET(S) Ho spita 00 :00 BY MOUTH l ONCE A DAY. amLODIPine 2021-09- No 2.5mg QD Take 1 Met hodi (NORVASC) 0-13 11-[address] 2.5 mg 00:00: 00:00 (2.5 mg Hospita tablet 00 :00 total) by l mouth daily. amLODIPine 2021-09- No 2.5mg QD Take 1 Met hodi (NORVASC) 0-13 11-[address] 2.5 mg 00:00: 00:00 (2.5 mg Hospita tablet 00 :00 total) by l mouth daily. lisinopriL 2021-09 Yes TAKE ONE Met hodi (PRINIVIL) 0-11 (1) st 40 mg 00:00: TABLET(S) Hospita tablet 00 BY MOUTH l TWICE A DAY. lisinopriL 2021-09 Yes TAKE ONE Met hodi (PRINIVIL) 0-11 (1) st 40 mg 00:00: TABLET(S) Hospita tablet 00 BY MOUTH l TWICE A DAY. clonIDINE Yes .1mg Q8H Take 1 Method i (Catapres) 9-[address] 0.1 MG 00:00: (0.1 mg Hospita tablet 00 total) by l mouth every 8 (eight) hours as needed for high blood pressure (sBP >160). clonIDINE Yes .1mg Q8H Take 1 Method i (Catapres) 9- tablet st 0.1 MG 00:00: (0.1 mg Hospita tablet 00 total) by l mouth every 8 (eight) hours as needed for high blood pressure (sBP >160). propranoloL 2021- No Week 1: Me thodi (INDERAL) 05-21 1/[address] 20 MG 00:00: 00:00 (10 mg) Hospita tablet 00 :00 twice a l day, Week 2: 1 tablet (20 mg) twice a day, Week 3: 1 tablet (20 mg) three times a day and continue at this dose. propranoloL 2021- No Week 1: Me thodi (INDERAL) 05-21 1/[address] 20 MG 00:00: 00:00 (10 mg) Hospita tablet 00 :00 twice a l day, Week 2: 1 tablet (20 mg) twice a day, Week 3: 1 tablet (20 mg) three times a day and continue at this dose. gabapentin Yes TAKE ONE Met hodi (NEURONTIN) 8 (1) st 600 mg 00:00: TABLET(S) Hospit a tablet 00 BY MOUTH l THREE TIMES A DAY. gabapentin Yes TAKE ONE Met hodi (NEURONTIN) 8-29 (1) st 600 mg 00:00: TABLET(S) Hospit a tablet 00 BY MOUTH l THREE TIMES A DAY. busPIRone Yes [id number] 10mg Q.5D Take 1 Me thodi (BUSPAR) 10 8-18 tablet (10 st MG tablet 00:00: mg total) Hos lars 00 by mouth 2 l (two) times a day as needed (anxiety). busPIRone Yes [id number] 10mg Q.5D Take 1 Me thodi (BUSPAR) 10 8-18 tablet (10 st MG tablet 00:00: mg total) Hos lars 00 by mouth 2 l (two) times a day as needed (anxiety). rotigotine 2022- No [id number] 1{patch QD Place 1 Methodi (Neupro) 8 04-19 } patch on st mg/24 hour 00:00: 04:59 the skin Ho spita 00 :00 daily. l rotigotine 2022- No [id number] 1{patch QD Place 1 Methodi (Neupro) 8 04-19 } patch on st mg/24 hour 00:00: 04:59 the skin Ho spita 00 :00 daily. l Myrbetriq 2021- No TAKE ONE Met hodi 50 mg -07-31 (1) st tablet 00:00: 00:00 TABLET(S) Hospi ta extended 00 :00 BY MOUTH l release 24 ONCE A hr DAY. Myrbetriq 2021- No TAKE ONE Met hodi 50 mg -07-31 (1) st tablet 00:00: 00:00 TABLET(S) Hospi ta extended 00 :00 BY MOUTH l release 24 ONCE A hr DAY. meloxicam 2021- No TAKE ONE Met hodi (MOBIC) 7.5 -07-03 (1) st mg tablet 00:00: 00:00 TABLET(S) Ho spita 00 :00 BY MOUTH l ONCE A DAY. meloxicam 2021- No TAKE ONE Met hodi (MOBIC) 7.5 -07-03 (1) st mg tablet 00:00: 00:00 TABLET(S) Ho spita 00 :00 BY MOUTH l ONCE A DAY. amLODIPine 2021- No 5mg QD Take 1 Meth bob (Norvasc) 5 7-19 07-26 tablet (5 st mg tablet 00:00: 00:00 mg total) Ho spita 00 :00 by mouth l daily. amLODIPine No 5mg QD Take 1 Meth bob (Norvasc) 5 03-20 tablet (5 st mg tablet 00:00: 00:00 mg total) Ho spita 00 :00 by mouth l daily. atorvastati 2021- No TAKE ONE M ethodi n (LIPITOR) 03-13 (1) st 40 mg 00:00: 00:00 TABLET(S) Hospit a tablet 00 :00 BY MOUTH l ONCE A DAY. atorvastati 2021- No TAKE ONE M ethodi n (LIPITOR) 03-13 (1) st 40 mg 00:00: 00:00 TABLET(S) Hospit a tablet 00 :00 BY MOUTH l ONCE A DAY. amoxicillin No 1{tbl} Q.5D Take 1 M ethodi -pot 02-[address] clavulanate 00:00: 04:59 mouth 2 Ho spita (AUGMENTIN) 00 :00 (two) l 875-125 mg times a per tablet day for 7 days. amoxicillin No 1{tbl} Q.5D Take 1 M ethodi -pot 02-[address] clavulanate 00:00: 04:59 mouth 2 Ho spita (AUGMENTIN) 00 :00 (two) l 875-125 mg times a per tablet day for 7 days. Neupro 6 2021- No APPLY ONE Met hodi mg/24 hour 02-20 (1) st 00:00: 00:00 PATCH(ES) Hospita 00 :00 TO THE l SKIN ONCE A DAY. Neupro 6 2021- No APPLY ONE Met hodi mg/24 hour 02-20 (1) st 00:00: 00:00 PATCH(ES) Hospita 00 :00 TO THE l SKIN ONCE A DAY. ciprofloxac 2021- No 250mg Q.5D Take 1 Me thodi in HCl 11-[address] (Cipro) 250 00:00: 04:59 (250 mg Ho spita MG tablet 00 :00 total) by l mouth 2 (two) times a day for 3 days. ciprofloxac No 250mg Q.5D Take 1 Me thodi in HCl 11-26 03-[address] (Cipro) 250 00:00: 04:59 (250 mg Ho spita MG tablet 00 :00 total) by l mouth 2 (two) times a day for 3 days. rotigotine 2021- No 1{patch QD Place 1 Methodi (NEUPRO) 6 11-22 } patch on st mg/24 hour 00:00: 00:00 the skin Ho spita 00 :00 daily. l rotigotine 2021- No 1{patch QD Place 1 Methodi (NEUPRO) 6 11-22 } patch on st mg/24 hour 00:00: 00:00 the skin Ho spita 00 :00 daily. l Folbee 2021- No TAKE ONE Method i 2.5-25-1 mg 11-03 (1) st tablet 00:00: 00:00 TABLET(S) Hospi ta 00 :00 BY MOUTH l ONCE A DAY. Folbee 2021- No TAKE ONE Method i 2.5-25-1 mg 11-03 (1) st tablet 00:00: 00:00 TABLET(S) Hospi ta 00 :00 BY MOUTH l ONCE A DAY. amLODIPine 2021- No TAKE ONE Me thodi (NORVASC) 11-03- (1) st 10 mg 00:00: 00:00 TABLET(S) Hospit a tablet 00 :00 BY MOUTH l ONCE A DAY. amLODIPine 2021- No TAKE ONE Me thodi (NORVASC) 11-03- (1) st 10 mg 00:00: 00:00 TABLET(S) Hospit a tablet 00 :00 BY MOUTH l ONCE A DAY. desvenlafax No 50mg QD Take 1 Met hodi ine 2-28 11-16 tablet (50 st (Pristiq) 00:00: 00:00 mg total) Ho spita 50 MG 24 hr 00 :00 by mouth l tablet daily. desvenlafax 2021- No 50mg QD Take 1 Met hodi ine 10-30 11-16 tablet (50 st (Pristiq) 00:00: 00:00 mg total) Ho spita 50 MG 24 hr 00 :00 by mouth l tablet daily. rotigotine 2021- No [id number] APPLY ONE Methodi (Neupro) 8 10-29-23 (1) st mg/24 hour 00:00: 00:00 PATCH(ES) H ospita patch 24 00 :00 TO THE l hour SKIN ONCE DAILY. rotigotine 2021- No [id number] APPLY ONE Methodi (Neupro) 8 10-29-23 (1) st mg/24 hour 00:00: 00:00 PATCH(ES) H ospita patch 24 00 :00 TO THE l hour SKIN ONCE DAILY. rotigotine 2021- No [id number] RLS Me thodi (Neupro) 8 10-25-27 st mg/24 hour 00:00: 00:00 Hospit a patch 24 00 :00 l hour rotigotine 2021- No [id number] RLS Me thodi (Neupro) 8 10-25-27 st mg/24 hour 00:00: 00:00 Hospit a patch 24 00 :00 l hour meloxicam 2021- No TAKE ONE Met hodi (MOBIC) 7.5 10-09-19 (1) st mg tablet 00:00: 00:00 TABLET(S) Ho spita 00 :00 BY MOUTH l ONCE A DAY. meloxicam 2021- No TAKE ONE Met hodi (MOBIC) 7.5 10-09-19 (1) st mg tablet 00:00: 00:00 TABLET(S) Ho spita 00 :00 BY MOUTH l ONCE A DAY. FLUoxetine 2020-09- No TAKE ONE Me thodi (PROzac) 20 10-30 (1) st MG capsule 00:00: 00:00 CAPSULE(S) Hospita 00 :00 BY MOUTH l DAILY. FLUoxetine 2020-09- No TAKE ONE Me thodi (PROzac) 20 10-30 (1) st MG capsule 00:00: 00:00 CAPSULE(S) Hospita 00 :00 BY MOUTH l DAILY. meloxicam 2020-09 No 7.5mg QD Take 1 Meth bob (Mobic) 7.5 09-[address] mg tablet 00:00: 00:00 (7.5 mg Hosp tova 00 :00 total) by l mouth daily for 90 days. solifenacin 2020-09 No 10mg QD Take 1 Met hodi (Vesicare) 09-05 tablet (10 st 10 MG 00:00: 04:59 mg total) Hospit a tablet 00 :00 by mouth l daily. solifenacin 2020-09 No 10mg QD Take 1 Met hodi (Vesicare) 09-05 tablet (10 st 10 MG 00:00: 04:59 mg total) Hospit a tablet 00 :00 by mouth l daily. tiZANidine 2020-09 No TAKE ONE M ethodi (ZANAFLEX) 0-17 -22 (1) st 2 MG tablet 00:00: 00:00 TABLET(S) Hospita 00 :00 BY MOUTH l EVERY NIGHT NEEDED FOR MUSCLE SPASMS. tiZANidine 2020-09 No TAKE ONE M ethodi (ZANAFLEX) 0-17 -22 (1) st 2 MG tablet 00:00: 00:00 TABLET(S) Hospita 00 :00 BY MOUTH l EVERY NIGHT NEEDED FOR MUSCLE SPASMS. lisinopriL No TAKE ONE M ethodi (PRINIVIL) 8-20 -11 (1) st 40 mg 00:00: 00:00 TABLET(S) Hospit a tablet 00 :00 BY MOUTH l TWICE A DAY. lisinopriL 2021- No TAKE ONE M ethodi (PRINIVIL) 8-20 10-11 (1) st 40 mg 00:00: 00:00 TABLET(S) Hospit a tablet 00 :00 BY MOUTH l TWICE A DAY. gabapentin No 600mg QD Take 1 Met hodi (NEURONTIN) 02-[address] 600 mg 00:00: 00:00 (600 mg Hospita tablet 00 :00 total) by l mouth daily. gabapentin 2021- No 600mg QD Take 1 Met hodi (NEURONTIN) 02-[address] 600 mg 00:00: 00:00 (600 mg Hospita tablet 00 :00 total) by l mouth daily. desmopressi Yes TAKE ONE Me thodi n (DDAVP) 5-06 (1) st 0.2 MG 00:00: TABLET(S) Hospit a tablet 00 BY MOUTH l ONCE A DAY. desmopressi Yes TAKE ONE Me thodi n (DDAVP) 5-06 (1) st 0.2 MG 00:00: TABLET(S) Hospit a tablet 00 BY MOUTH l ONCE A DAY. atorvastati 2021- No 40mg QD Take 1 Met hodi n (Lipitor) 12-30- tablet (40 s t 40 mg 00:00: 04:59 mg total) Hospit a tablet 00 :00 by mouth l daily. atorvastati 2021- No 40mg QD Take 1 Met hodi n (Lipitor) 12-30- tablet (40 s t 40 mg 00:00: 04:59 mg total) Hospit a tablet 00 :00 by mouth l daily. amLODIPine 2021- No TAKE ONE Me thodi (NORVASC) 11-27- (1) st 10 mg 00:00: 00:00 TABLET(S) Hospit a tablet 00 :00 BY MOUTH l ONCE A DAY. amLODIPine 2021- No TAKE ONE Me thodi (NORVASC) 11-27- (1) st 10 mg 00:00: 00:00 TABLET(S) Hospit a tablet 00 :00 BY MOUTH l ONCE A DAY. folic 2020-2021- No 1{tbl} QD Take 1 Methodi acid-vit 09-[address] B6-vit B12 00:00: 00:00 mouth Hospi ta (Folbee) 00 :00 daily. l 2.5-25-1 mg tablet folic 2021- No 1{tbl} QD Take 1 Methodi acid-vit 09-[address] B6-vit B12 00:00: 00:00 mouth Hospi ta (Folbee) 00 :00 daily. l 2.5-25-1 mg tablet rotigotine RLS Method i (Neupro) 8 09-09 02-23 st mg/24 hour 00:00: 00:00 Hospit a patch 24 00 :00 l hour propranolol 2021- No 120mg QD Take 1 Me thodi [place] (Inderal 09-[address] LA) 120 MG 00:00: 05:59 (120 mg Hos lars 24 hr 00 :00 total) by l capsule mouth daily. aspirin 81 Yes 81mg QD Take [address] MG EC 2-16 by mouth [facility] tablet 11:24: daily. [facility] [address] Vitamin D Yes 4000U QD Take 4,[address] 2,000 unit 2-16 Units by [facility] Cap 11:24: mouth Medical 43 daily . [place] CALCIUM Yes 600mg QD Take [facility] CIT[facility]/VIT 2-16 mg by [facility] FLOOD D3 11:24: mouth Medical (CITRACAL + 43 daily . Cente r D ORAL) lisinopril Yes 40mg QD Take [address] (PRINIVIL,Z 2-16 by mouth Luke s ESTRIL) 40 11:24: daily. Medic al MG tablet 43 [address] pitavastati Yes 2mg QD Take [address] n (LIVALO) 2-16 by mouth [facility] 1 mg tablet 11:24: daily. [facility] paul [address] onto [facility] (NEUPRO) 8 2-16 the skin [facility] mg/24 hour 11:24: daily. Medic al PT24 [address] MAGNESIUM Yes 500mg QD Take [address] ORAL 2-16 mg by [facility] 11:24: mouth Medical 43 daily. [place] PHOSPSERIN/ Yes 300mg QD Take [address] OMEGA-3/DHA 2-16 mg by [facility] /EPA 11:24: mouth Medical (VAYACOG 43 daily. Center ORAL) gabapentin Yes QD Take by [facility] 600 mg Tb24 2-16 mouth [facility] 11:24: daily. [facility] [address] aspirin 81 Yes 81mg QD Take [address] MG EC 2-16 by mouth [facility] tablet 11:24: daily. [facility] [address] Vitamin D Yes 4000U QD Take 4,[address] 2,000 unit 2-16 Units by [facility] Cap 11:24: mouth Medical 43 daily . [place] CALCIUM Yes 600mg QD Take [facility] CITRATE/VIT 2-16 mg by [facility] FLOOD D3 11:24: mouth Medical (CITRACAL + 43 daily . Cente r D ORAL) lisinopril Yes 40mg QD Take [address] (PRINIVIL,Z 2-16 by mouth Luke s ESTRIL) 40 11:24: daily. Medic al MG tablet 43 [address] pitavastati Yes 2mg QD Take [address] n (LIVALO) 2-16 by mouth [facility] 1 mg tablet 11:24: daily. [facility] paul [address] [place] [address] onto [facility] (NEUPRO) 8 2-16 the skin [facility] mg/24 hour 11:24: daily. Medic al PT24 [address] MAGNESIUM Yes 500mg QD Take [address] ORAL 2-16 mg by [facility] 11:24: mouth Medical 43 daily. [place] PHOSPSERIN/ Yes 300mg QD Take [address] OMEGA-3/DHA 2-16 mg by [facility] /EPA 11:24: mouth Medical (VAYACOG 43 daily. [place] ORAL) gabapentin Yes QD Take by [facility] 600 mg Tb24 2-16 mouth [facility] 11:24: daily. [address] azelastine Yes Other [address] 0.15 % 2-16 seasonal nasally [facility] (205.5 mcg) 00:00: allergic daily. Medical [place] 00 rhinitis [place] desmopressi Yes Overactive .2mg QD Take 1 [...] mg Medical capsule 00 disease total) by Cent er without mouth esophagitis daily. trospium 60 Yes Overactive 60mg QD Take [address] mg Cp24 2-16 bladder capsule [facility] 00:00: (60 mg Medical 00 total) by Center mouth nightly. azelastine Yes Other [address] 0.15 % 2-16 seasonal nasally [facility] (205.5 mcg) 00:00: allergic daily. Medical [place] 00 rhinitis Center desmopressi Yes Overactive .2mg QD Take [address] n (DDAVP) 2-16 bladder tablet [facility] 0.2 MG 00:00: (0.2 mg Medical tablet 00 total) by Center mouth daily. fLUoxetine Yes Anxiety 10mg QD Take [address] (PROZAC) 10 2-16 capsule [facility] MG capsule 00:00: (10 mg Medic al total) by Center mouth daily. omeprazole Yes Gastroesoph 20mg QD Take [address] (PRILOSEC) 2-16 ageal capsule [facility] 20 MG 00:00: reflux (20 mg Medical capsule 00 disease total) by Cent er without mouth esophagitis daily. trospium 60 Yes Overactive 60mg QD Take [address] mg Cp24 2-16 bladder capsule [facility] 00:00: (60 mg Medical 00 total) by Center mouth nightly. omeprazole No 20mg QD Take 20 mg Methodi (PriLOSEC) 2-16 11-[address] 20 MG 00:00: 00:00 daily. Hospita capsule 00 :00 l omeprazole 2021- No 20mg QD Take 20 mg [facility]i (PriLOSEC) 2-16 11-[address] 20 MG 00:00: 00:00 daily. Hospita capsule 00 :00 l spironolact Yes 1/[address] one-hydroch 2-20 daily [facility] lorothiazid 00:00: Medica l e 00 Center (ALDACTAZID E) 25-25 mg per tablet spironolact Yes 1/[address] one-hydroch 2-20 daily [facility] lorothiazid 00:00: Medica l e 00 Center (ALDACTAZID E) 25-25 mg per tablet Immunizations Ordered Immunization Filled Immunization Date Status Commen ts Source Name Name FLUZONE HIGH-DOSE PF 2022-05-17 Completed Meth odist 00:00:00 [facility] PFIZER >12 YR 2022-05-17 Completed [facility] COVID-19 MRNA 00:00:00 [facility] BIVALENT VACCINATION FLUZONE HIGH-DOSE PF 2022-05-17 Completed Meth odist 00:00:00 [facility] PFIZER >12 YR 2022-05-17 Completed [facility] COVID-19 MRNA 00:00:00 [facility] BIVALENT VACCINATION MODERNA COVID-19 MRNA 2022-01-01 Completed Met hodist VACCINATION 00:00:00 [facility] MODERNA COVID-19 MRNA 2022-01-01 Completed Met hodist VACCINATION 00:00:00 [facility] FLUZONE HIGH-DOSE PF 2021-05-24 Completed Meth odist 00:00:00 [facility] FLUZONE HIGH-DOSE PF 2021-05-24 [facility] 2021-04-24 Completed Met hodist VACCINATION 00:00:00 [facility] MODERNA COVID-19 MRNA 2021-04-24 Completed Met hodist VACCINATION 00:00:00 [facility] MODERNA COVID-19 MRNA 2020-10-04 Completed [facility] VACCINATION 00:00:00 [facility] MODERNA COVID-19 MRNA 2020-10-04 Completed [facility] VACCINATION 00:00:00 [facility] MODERNA COVID-19 MRNA 2020-09-06 Completed [facility] 2020-09-06 Com[facility] VACCINATION 00:00:00 [facility] FLUZONE HIGH-DOSE PF 2020-06-29 Completed Meth odist 00:00:00 [facility] FLUZONE HIGH-DOSE PF 2020-06-29 Completed Meth odist 00:00:00 [facility] FLUZONE HIGH-DOSE PF 2019-06-11 Completed [facility] 00:00:00 Hospital FLUZONE HIGH-DOSE PF 2019-06-11 Completed [facility] 00:00:00 Hospital Zoster Vaccine 2019-01-14 Completed [facility] Recombinant 00:00:00 Hospital Zoster Vaccine 2019-01-14 Completed [facility] Recombinant 00:00:00 Hospital Zoster Vaccine 2018-10-03 Completed [facility] Recombinant 00:00:00 Hospital Zoster Vaccine 2018-10-03 Completed [facility] Recombinant 00:00:00 Hospital Influenza, 2018-06-20 Completed [facility] Unspecified 00:00:00 Hospital Influenza, 2018-06-20 Completed [facility] Unspecified 00:00:00 Hospital Influenza Whole 2017-06-15 Completed [facility] 00:00:00 Hospital Influenza Whole 2017-06-15 Completed [facility] 00:00:00 Hospital Influenza Whole 2016-07-29 Completed [facility] 00:00:00 Hospital Influenza Whole 2016-07-29 Completed [facility] 00:00:00 Hospital Pneumococcal 2016-05-26 Completed [facility] Polysaccharide 00:00:00 Hospital Pneumococcal 2016-05-26 Completed [facility] Polysaccharide 00:00:00 Hospital Influenza Whole 2015-06-[address] [facility] Influenza Whole 2015-06-17 Completed [facility] 00:00:00 Hospital Influenza Whole 2015-06-[address] [facility] 00[facility]00 [facility] Influenza Whole 2015-06-17 Completed [facility] 00:00:00 Hospital Pneumococcal 2014-11-[address] [facility] Conjugate (Prevnar) 00:00:00 [facility] 13-Valent Pneumococcal 2014-11-08 Completed [facility] Conjugate 13-Valent 00:00:00 Hospi kristine Pneumococcal 2014-11-[address] [facility] Conjugate (Prevnar) 00:00:00 [facility] 13-Valent Pneumococcal 2014-11-08 Completed [facility] Conjugate 13-Valent 00:00:00 Hospi kristine Influenza Whole 2014-06-[address] [facility] Influenza Whole 2014-06-14 Completed [facility] 00:00:00 Hospital Influenza Whole 2014-06-[address] [facility] Influenza Whole 2014-06-14 Completed [facility] 00[facility]00:00 [facility] Influenza Whole 2013-06-14 Completed [facility] 00:00:00 Hospital Influenza Whole 2013-06-[address] [facility] 00[facility] Influenza Whole 2013-06-[address] [facility] 00:[facility]00 [facility] Influenza Whole 2013-06-14 Completed [facility] 00:00:00 Hospital Influenza Whole 2012-07-02 Completed [facility] 00:00:00 Hospital Influenza Whole 2012-07-[address] [facility] 00:00:00 [facility] Center Influenza Whole 2012-07-[address] [facility] 00:00:00 [facility] Center Influenza Whole 2012-07-02 Completed [facility] 00:00:00 Hospital Tdap 2012-04-26 Completed [facility] 00:00:00 [facility] Tdap 2012-04-[address] [facility] 00:00:00 [facility] Tdap 2012-04-[address] [facility] 00:00:00 [facility] Tdap 2012-04-26 Completed [facility] 00:00:00 [facility] Hepatitis B 2012-03-28 Completed [facility] 00:00:00 [facility] Typhoid Inactivated 2012-03-28 Completed [facility] 00:00:00 [facility] Hepatitis B 2012-03-[address] [facility] 00:00:00 [facility] Typhoid Inactivated 2012-03-28 [facility] Hepatitis B 2012-03-[address] [facility] 00:00:00 [facility] Typhoid Inactivated 2012-03-28 [facility] Hepatitis B 2012-03-28 Completed [facility] 00:00:00 [facility] Typhoid Inactivated 2012-03-28 Completed [facility] 00:00:00 [facility] Influenza Trivalent 2011-06-01 Completed [facility] 00:00:00 [facility] Influenza TIV (IM) 2011-06-[address] [facility] 00:00:00 [facility] Influenza TIV (IM) 2011-06-[address] [facility] 00:00:00 [facility] Influenza Trivalent 2011-06-01 Completed [facility] 00:00:00 Hospital Zoster 2007-09-26 Completed [facility] 00:00:00 [facility] SHINGLES VARICELLA 2007-09-[address] [facility] (ZOSTAVAX) ZOSTER 00:00:00 [facility] SHINGLES VARICELLA 2007-09-[address] [facility] (ZOSTAVAX) ZOSTER 00:00:00 [facility] Zoster 2007-09-26 Completed [facility] 00:00:00 Hospital Pneumococcal 2006-06-13 Completed [facility] Polysaccharide 00:00:00 Hospital Pneumococcal 2006-06-[address] [facility] Polysaccharide 00:00:00 [facility]ter (Pneumovax) Pneumococcal 2006-06-[address] [facility] Polysaccharide 00:00:00 [facility]ter (Pneumovax) Pneumococcal 2006-06-13 Completed [facility] Polysaccharide 00:00:00 Hospital Vital Signs Vital Name Observation Time Observation Value Comments Source Systolic blood 2022-09-18 21:46:00 120 mm[Hg] Method [facility] pressure Diastolic blood 2022-09-18 21:46:00 58 mm[Hg] [facility] pressure Heart rate 2022-09-18 21:27:00 63 /min [facility] Body height 2022-09-18 21:27:00 165.1 cm [facility] Body weight 2022-09-18 21:27:00 56.246 kg [facility] BMI 2022-09-18 21:27:00 20.63 kg/m2 [facility] Oxygen saturation in 2022-09-18 21:27:00 98 /min [facility] Arterial blood by Pulse oximetry Respiratory rate 2022-09-14 16:14:00 14 /min [facility] Systolic blood 2022-07-24 18:14:00 132 mm[Hg] Method [facility] pressure Diastolic blood 2022-07-24 18:14:00 60 mm[Hg] [facility] pressure Heart rate 2022-07-24 17:46:00 65 /min [facility] Body height 2022-07-24 17:46:00 165.1 cm [facility] Body weight 2022-07-24 17:46:00 56.79 kg [facility] BMI 2022-07-24 17:46:00 20.83 kg/m2 [facility] Oxygen saturation in 2022-07-24 17:46:00 98 /min [facility] Arterial blood by Pulse oximetry Respiratory rate 2022-05-21 13:27:00 16 /min [facility] Procedures Procedure Date / Time Performing Clinician Source Performed COMPREHENSIVE METABOLIC 2022-07-24 18:17:00 TarynKorin carlson [facility] PANEL HEMOGLOBIN A1C 2022-07-24 18:17:00 TarynKorin carlson [facility] LIPID PANEL 2022-07-24 18:17:00 Korin Centeno [facility] ALBUMIN WITH CREATININE 2022-07-24 18:17:00 [facility], RANDOM URINE XR CERVICAL SPINE 2022-07-19 17:08:16 George Granados [facility] COMPLETE XR CERVICAL SPINE 2022-04-19 16:30:[address] [facility] COMPLETE XR CERVICAL SPINE 2022-03-15 16:04:58 Augustine Li [facility] COMPLETE [place] XR SPINE EXTERNAL STUDY 2022-03-02 04:55:23 Guillermo [facility] [place] [facility] CHEST ABD PEL EXTERNAL 2022-03-02 00:18:04 [facility] [place] SPINE EXTERNAL STUDY 2022-03-01 18:56:45 Guillermo [facility] [place] HEMOGLOBIN A1C 2022-01-01 05:00:00 [facility] BASIC METABOLIC PANEL 2022-01-01 05:00:00 [facility] URINALYSIS, COMPLETE, 2021-11-23 13:52:00 [facility] WITH REFLEX TO CULTURE COMPREHENSIVE METABOLIC 2021-11-21 05:00:00 [facility] PANEL CBC WITH PLATELET AND 2021-11-21 05:00:00 [facility] DIFFERENTIAL THYROID STIMULATING 2021-11-21 05:00:00 [facility] HORMONE Plan of Care Planned Activity Planned Date Details Comments Source Encounters Start End Encounter Admission Attending Care Care Encounter Source Date/Time Date/Time Type Type Clinicians Facility Department ID 2022-05-14 Outpatient [facility] [id number] Common 10:36:05 [facility] 2022-05-10 Outpatient [facility] [id number] [place] 13:54:05 [id number] [facility] 2022-03-16 Outpatient [facility] [id number] [place] 07:17:48 [id number] [facility] 2022-03-01 Outpatient [facility] [id number] [place] 18:10:40 [id number] [facility] 2022-10-29 2022-10-29 Юлия Dillard2.840.1 [id number] Methodi 00:00:00 00:00:00 Only Korin 56028.1.[address] B. 3.430.2.7 Hospit a .3.752552 l .8 2022-10-29 2022-10-29 Telephone Taryn, 1.2.840.1 [id number] 2099 [id number] Methodi 00:00:00 00:00:[address] B. 3.430.2.7 Hospit a .3.153831 l .8 2022-10-29 2022-10-29 Telephone Joanna Espinosa 1.2.840.1 [id number] Methodi 00:00:00 00:00:[address] 3.430.2.7 Hospit a .3.370426 l .8 2022-09-18 2022-09-18 Office Taryn, 1.2.840.1 [id number] 1665 Methodi 15:45:00 16:04:57 Visit Korin 45198.1.[address] B. 3.430.2.7 Hospit a .3.992526 l .8 2022-09-18 2022-09-18 Travel 1.2.840.1 1.2.532.885 3520 [id number] Methodi 00:00:00 00:00:[address] 3.430.2.7 0.2.7.3.698 Ho spita .3.279952 084.8 l .8 2022-09-18 2022-09-18 [facility] [id number] 00:00:00 00:00:[address] 2022-09-17 2022-09-17 Telephone Taryn, 1.2.840.1 [id number] 2100 [id number] Methodi 00:00:00 00:00:[address] B. 3.430.2.7 Hospit a .3.403804 l .8 2022-09-14 2022-09-14 Office Dionne Sahu 1.2.840.1 [id number] 21 [id number] Methodi 10:00:00 10:31:[address] 3.430.2.7 Hospit a .3.563438 l .8 2022-09-14 2022-09-14 Travel 1.2.840.1 1.2.720.623 7116 [id number] Methodi 00:00:00 00:00:[address] 3.430.2.7 0.2.7.3.698 Ho spita .3.995793 084.8 l .8 2022-09-14 2022-09-14 [facility] DIONNE SAHU [facility] [id number] [place] 00:00:00 00:00:[address] 2022-09-13 2022-09-13 Telephone George, 1.2.840.1 [id number] 2100 [id number] Methodi 00:00:00 00:00:00 Baniqua S [address]642.1.[address] 3.430.2.7 Hospit a .3.590964 l .8 2022-09-12 2022-09-12 Telephone Taryn, 1.2.840.1 [id number] 2100 [id number] Methodi 00:00:00 00:00:[address] B. 3.430.2.7 Hospit a .3.177934 l .8 2022-09-02 2022-09-02 Telephone Taryn, 1.2.840.1 [id number] 2100 [id number] Methodi 00:00:00 00:00:[address] B. 3.430.2.7 Hospit a .3.917562 l .8 2022-08-30 2022-08-30 Telephone Taryn, 1.2.840.1 [id number] 2100 [id number] Methodi 00:00:00 00:00:[address] B. 3.430.2.7 Hospit a .3.916951 l .8 2022-08-30 2022-08-30 Telephone Taryn, 1.2.840.1 [id number] 2099 [id number] Methodi 00:00:00 00:00:[address] B. 3.430.2.7 Hospit a .3.252034 l .8 2022-08-30 2022-08-30 Telephone Jesús Joanna 1.2.840.1 [id number] Methodi 00:00:00 00:00:[address] 3.430.2.7 Hospit a .3.908632 l .8 2022-08-30 2022-08-30 Telephone Taryn, 1.2.840.1 [id number] 2099 [id number] Methodi 00:00:00 00:00:[address] B. 3.430.2.7 Hospit a .3.313550 l .8 2022-08-30 2022-08-30 Telephone Jesús Joanna 1.2.840.1 [id number] Methodi 00:00:00 00:00:[address] 3.430.2.7 Hospit a .3.260261 l .8 2022-08-23 2022-08-23 Telephone Taryn, 1.2.840.1 [id number] 2099 [id number] Methodi 00:00:00 00:00:[address] B. 3.430.2.7 Hospit a .3.934688 l .8 2022-08-23 2022-08-23 Telephone Taryn, 1.2.840.1 [id number] 2099 [id number] Methodi 00:00:00 00:00:[address] B. 3.430.2.7 Hospit a .3.355790 l .8 2022-08-16 2022-08-16 Telephone Taryn, 1.2.840.1 [id number] 2100 [id number] Methodi 00:00:00 00:00:[address] B. 3.430.2.7 Hospit a .3.035962 l .8 2022-08-16 2022-08-16 Telephone Taryn, 1.2.840.1 [id number] 2100 [id number] Methodi 00:00:00 00:00:[address] B. 3.430.2.7 Hospit a .3.588541 l .8 2022-08-15 2022-08-15 Refill Taryn, 1.2.840.1 [id number] 434799 3465 Methodi 00:00:00 00:00:[address] B. 3.430.2.7 Hospit a .3.036894 l .8 2022-08-15 2022-08-15 Refill Taryn, 1.2.840.1 [id number] 734376 5554 Methodi 00:00:00 00:00:[address] B. 3.430.2.7 Hospit a .3.049919 l .8 2022-07-30 2022-07-30 Telephone Taryn, 1.2.840.1 [id number] 2100 [id number] Methodi 00:00:00 00:00:[address] B. 3.430.2.7 Hospit a .3.566087 l .8 2022-07-30 2022-07-30 Refill Taryn, 1.2.840.1 [id number] 3236 Methodi 00:00:00 00:00:[address] B. 3.430.2.7 Hospit a .3.917406 l .8 2022-07-30 2022-07-30 Telephone Taryn, 1.2.840.1 [id number] 2100 [id number] Methodi 00:00:00 00:00:[address] B. 3.430.2.7 Hospit a .3.651126 l .8 2022-07-30 2022-07-30 Refill Taryn, 1.2.840.1 [id number] 202798 9071 Methodi 00:00:00 00:00:[address] B. 3.430.2.7 Hospit a .3.398522 l .8 2022-07-25 2022-07-25 Refill Taryn, 1.2.840.1 [id number] [id number] 4849 Methodi 00:00:00 00:00:[address] B. 3.430.2.7 Hospit a .3.942979 l .8 2022-07-25 2022-07-25 Refill Taryn, 1.2.840.1 [id number] 5734 Methodi 00:00:00 00:00:[address] B. 3.430.2.7 Hospit a .3.557233 l .8 2022-07-24 2022-07-24 Office Taryn, 1.2.840.1 [id number] 2218 Methodi 11:30:00 12:29:06 Visit Korin 86168.1.[address] B. 3.430.2.7 Hospit a .3.324654 l .8 2022-07-24 2022-07-24 Office Taryn, 1.2.840.1 [id number] 5260 Methodi 11:30:00 12:29:06 Visit Korin 79649.1.[address] B. 3.430.2.7 Hospit a .3.951651 l .8 2022-07-22 2022-07-22 Telephone Taryn, 1.2.840.1 [id number] 2099 [id number] Methodi 00:00:00 00:00:[address] B. 3.430.2.7 Hospit a .3.129378 l .8 2022-07-22 2022-07-22 Telephone Taryn, 1.2.840.1 [id number] 2100 [id number] Methodi 00:00:00 00:00:[address] B. 3.430.2.7 Hospit a .3.931400 l .8 2022-07-19 2022-07-19 Office Augustine Li Don 1.2.840. 1 [id number] Methodi 11:15:00 11:26:43 Visit George Granados 15224.1.[address] 3.430.2.7 Hospit a .3.959013 l .8 2022-07-19 2022-07-19 Office Guillermo Augustine Jay Don 1.2.840. 1 [id number] Methodi 11:15:00 11:26:43 Visit George Granados 39333.1.[address] 3.430.2.7 Hospit a .3.290238 l .8 2022-07-19 2022-07-19 Outpatient [facility] [id number] [address] [place] [address] 00:00:00 00:00:[address] 2022-07-18 2022-07-18 Refill Dionne Sahu 1.2.840.1 [id number] 21 [id number] Methodi 00:00:00 00:00:[address] 3.430.2.7 Hospit a .3.644445 l .8 2022-07-18 2022-07-18 Refill Taryn, 1.2.840.1 [id number] 7924 Methodi 00:00:00 00:00:[address] B. 3.430.2.7 Hospit a .3.285452 l .8 2022-07-18 2022-07-18 Refill Sahu, Dionne 1.2.840.1 [id number] 21 [id number] Methodi 00:00:00 00:00:[address] 3.430.2.7 Hospit a .3.549397 l .8 2022-07-18 2022-07-18 Refill Taryn, 1.2.840.1 [id number] [id number] 5154 Methodi 00:00:00 00:00:[address] B. 3.430.2.7 Hospit a .3.335795 l .8 2022-07-17 2022-07-17 Travel 1.2.840.1 1.2.612.669 5024 264707 Methodi 00:00:00 00:00:[address] 3.430.2.7 0.2.7.3.698 Ho spita .3.324259 084.8 l .8 2022-07-17 2022-07-17 Travel 1.2.840.1 1.2.282.867 4707 [id number] Methodi 00:00:00 00:00:[address] 3.430.2.7 0.2.7.3.698 Ho spita .3.746272 084.8 l .8 2022-07-16 2022-07-16 Refill Taryn, 1.2.840.1 [id number] 110151 6635 Methodi 00:00:00 00:00:[address] B. 3.430.2.7 Hospit a .3.940256 l .8 2022-07-16 2022-07-16 Refill Taryn, 1.2.840.1 [id number] 2348 Methodi 00:00:00 00:00:[address] B. 3.430.2.7 Hospit a .3.284022 l .8 2022-06-29 2022-06-29 Refill [place], 1.2.840.1 [id number] [id number] 4978 Methodi 00:00:00 00:00:00 Blaise Keyes 41637.1.1 968 s t 3.430.2.7 Hospit a .3.233460 l .8 2022-06-29 2022-06-29 Refill [place], 1.2.840.1 [id number] 856444 8942 Methodi 00:00:00 00:00:00 Blaise K. 28082.1.1 968 s t 3.430.2.7 Hospit a .3.797454 l .8 2022-06-20 2022-06-20 Refill Judy, 1.2.840.1 [id number] 846300 9497 Methodi 00:00:00 00:00:00 Blaise Coleman. 69911.1.1 269 s t 3.430.2.7 Hospit a .3.475651 l .8 2022-06-20 2022-06-20 Refstephen Kim, 1.2.840.1 [id number] 2413 Methodi 00:00:00 00:00:00 Blaise Jared. 89723.1.1 269 s t 3.430.2.7 Hospit a .3.361270 l .8 2022-06-14 2022-06-14 Orders Taryn, 1.2.840.1 [id number] 7845 Methodi 00:00:00 00:00:00 Only Korin 09041.1.[address] B. 3.430.2.7 Hospit a .3.455181 l .8 2022-06-14 2022-06-14 Telephone [place], 1.2.840.1 [id number] 2099 [id number] Methodi 00:00:00 00:00:[address] 3.430.2.7 Hospit a .3.967831 l .8 2022-06-14 2022-06-14 Telephone Trayn, 1.2.840.1 [id number] 2100 [id number] Methodi 00:00:00 00:00:[address] B. 3.430.2.7 Hospit a .3.858171 l .8 2022-06-14 2022-06-14 Orders Taryn, 1.2.840.1 [id number] 2168 Methodi 00:00:00 00:00:00 Only Korin 85272.1.[address] B. 3.430.2.7 Hospit a .3.990810 l .8 2022-06-14 2022-06-14 Telephone [place], 1.2.840.1 [id number] 2099 [id number] Methodi 00:00:00 00:00:00 Lenore Courtney 73726.1.[address] 3.430.2.7 Hospit a .3.635433 l .8 2022-06-14 2022-06-14 Telephone Taryn, 1.2.840.1 [id number] 2100 [id number] Methodi 00:00:00 00:00:[address] B. 3.430.2.7 Hospit a .3.712579 l .8 2022-06-08 2022-06-08 Refill Taryn, 1.2.840.1 [id number] [id number] 1251 Methodi 00:00:00 00:00:[address] B. 3.430.2.7 Hospit a .3.491231 l .8 2022-06-08 2022-06-08 Refill Taryn, 1.2.840.1 [id number] [id number] 5813 Methodi 00:00:00 00:00:[address] B. 3.430.2.7 Hospit a .3.477414 l .8 2022-05-24 2022-05-24 Telephone Taryn, 1.2.840.1 [id number] 2100 [id number] Methodi 00:00:00 00:00:[address] B. 3.430.2.7 Hospit a .3.618265 l .8 2022-05-24 2022-05-24 Telephone Taryn, 1.2.840.1 [id number] 2100 [id number] Methodi 00:00:00 00:00:[address] B. 3.430.2.7 Hospit a .3.165086 l .8 2022-05-21 2022-05-21 Office Dionne Sahu 1.2.840.1 [id number] 21 [id number] Methodi 08:30:00 08:51:[address] 3.430.2.7 Hospit a .3.142702 l .8 2022-05-21 2022-05-21 Office Dionne Sahu 1.2.840.1 [id number] 21 [id number] Methodi 08:30:00 08:51:[address] 3.430.2.7 Hospit a .3.304619 l .8 2022-05-21 2022-05-21 cSott Centeno, 1.2.840.1 [id number] 208419 5719 Methodi 00:00:00 00:00:00 Only Korin 91176.1.[address] B. 3.430.2.7 Hospit a .3.144814 l .8 2022-05-21 2022-05-21 Telephone Joanna Espinosa 1.2.840.1 [id number] Methodi 00:00:00 00:00:[address] 3.430.2.7 Hospit a .3.743479 l .8 2022-05-21 2022-05-21 Travel 1.2.840.1 1.2.274.108 8105 523512 Methodi 00:00:00 00:00:[address] 3.430.2.7 0.2.7.3.698 Ho spita .3.784284 084.8 l .8 2022-05-21 2022-05-21 Scott Centeno, 1.2.840.1 [id number] 6300 Methodi 00:00:00 00:00:00 Only Korin 32050.1.[address] B. 3.430.2.7 Hospit a .3.137931 l .8 2022-05-21 2022-05-21 Telephone Joanna Espinosa 1.2.840.1 [id number] Methodi 00:00:00 00:00:[address] 3.430.2.7 Hospit a .3.886913 l .8 2022-05-21 2022-05-21 Travel 1.2.840.1 1.2.499.342 3852 071056 Methodi 00:00:00 00:00:[address] 3.430.2.7 0.2.7.3.698 Ho spita .3.072443 084.8 l .8 2022-05-17 2022-05-17 Clinical 1.2.840.1 [id number] 21001 89126 Methodi 12:20:00 13:56:[address] 3.430.2.7 Hospit a .3.355471 l .8 2022-05-17 2022-05-17 Clinical 1.2.840.1 16104 Methodi 12:20:00 13:56:[address] 3.430.2.7 Hospit a .3.841608 l .8 2022-05-17 2022-05-17 Scott Centeno, 1.2.840.1 [id number] 4304 Methodi 00:00:00 00:00:00 Only Korin 62908.1.[address] B. 3.430.2.7 Hospit a .3.304534 l .8 2022-05-17 2022-05-17 Scott Taryn, 1.2.840.1 [id number] 015560 2226 Methodi 00:00:00 00:00:00 Only Korin 50015.1.[address] B. 3.430.2.7 Hospit a .3.611266 l .8 2022-04-30 2022-04-30 Refill Dionne Sahu 1.2.840.1 [id number] 21 [id number] Methodi 00:00:00 00:00:[address] 3.430.2.7 Hospit a .3.215131 l .8 2022-04-30 2022-04-30 Refill Dionne Sahu 1.2.840.1 [id number] 21 [id number] Methodi 00:00:00 00:00:[address] 3.430.2.7 Hospit a .3.418966 l .8 2022-04-19 2022-04-19 Office Taryn, 1.2.840.1 [id number] 3743 Methodi 14:30:00 15:25:53 Visit Korin 37313.1.[address] B. 3.430.2.7 Hospit a .3.246108 l .8 2022-04-19 2022-04-19 Office Taryn, 1.2.840.1 [id number] 4573 Methodi 14:30:00 15:25:53 Visit Korin 46481.1.[address] B. 3.430.2.7 Hospit a .3.348428 l .8 2022-04-19 2022-04-19 Office Augustine Li 1.2.840.1 [id number] 979 0768017 Methodi 11:00:00 11:59:50 Visit Jay 13406.1.[address] [place] 3.430.2.7 Hospit a .3.919196 l .8 2022-04-19 2022-04-19 Office Augustine Li 1.2.840.1 [id number] 821 1770886 Methodi 11:00:00 11:59:50 Visit Jay 79095.1.[address] [place] 3.430.2.7 Hospit a .3.844469 l .8 2022-04-19 2022-04-19 Travel 1.2.840.1 1.2.426.880 4571 450041 Methodi 00:00:00 00:00:[address] 3.430.2.7 0.2.7.3.698 Ho spita .3.746925 084.8 l .8 2022-04-19 2022-04-19 Travel 1.2.840.1 1.2.687.601 4375 487514 Methodi 00:00:00 00:00:[address] 3.430.2.7 0.2.7.3.698 Ho spita .3.557503 084.8 l .8 2022-04-19 2022-04-19 Outpatient [facility] [id number] [address] [place] 00:00:00 00:00:[address] 2022-03-27 2022-03-27 Office Taryn, 1.2.840.1 [id number] 504266 5287 Methodi 10:30:00 12:29:26 Visit Korin 97481.1.[address] B. 3.430.2.7 Hospit a .3.631596 l .8 2022-03-27 2022-03-27 Office Taryn, 1.2.840.1 [id number] 220024 7325 Methodi 10:30:00 12:29:26 Visit Korin 39041.1.[address] B. 3.430.2.7 Hospit a .3.227265 l .8 2022-03-27 2022-03-27 Travel 1.2.840.1 1.2.310.791 9117 248476 Methodi 00:00:00 00:00:[address] 3.430.2.7 0.2.7.3.698 Ho spita .3.803751 084.8 l .8 2022-03-27 2022-03-27 Travel 1.2.840.1 1.2.482.742 9169 644557 Methodi 00:00:00 00:00:[address] 3.430.2.7 0.2.7.3.698 Ho spita .3.339375 084.8 l .8 2022-03-20 2022-03-20 Telephone Taryn, 1.2.840.1 [id number] 2099 531333 Methodi 00:00:00 00:00:[address] B. 3.430.2.7 Hospit a .3.141009 l .8 2022-03-20 2022-03-20 Telephone Taryn, 1.2.840.1 [id number] 2100 635612 Methodi 00:00:00 00:00:[address] B. 3.430.2.7 Hospit a .3.836599 l .8 2022-03-19 2022-03-19 Telephone Taryn, 1.2.840.1 [id number] 2100 372101 Methodi 00:00:00 00:00:[address] B. 3.430.2.7 Hospit a .3.387468 l .8 2022-03-19 2022-03-19 Refill Taryn, 1.2.840.1 [id number] 580099 6550 Methodi 00:00:00 00:00:[address] B. 3.430.2.7 Hospit a .3.718581 l .8 2022-03-19 2022-03-19 Refill [place], 1.2.840.1 [id number] 357430 2615 Methodi 00:00:00 00:00:00 Blaise Keyes 64122.1.1 [address] 3.430.2.7 Hospit a .3.879560 l .8 2022-03-19 2022-03-19 Telephone Taryn, 1.2.840.1 [id number] 2100 347646 Methodi 00:00:00 00:00:[address]. 3.430.2.7 Hospit a .3.795579 l .8 2022-03-19 2022-03-19 Refill Taryn, 1.2.840.1 [id number] 576217 0457 Methodi 00:00:00 00:00:[address] B. 3.430.2.7 Hospit a .3.609266 l .8 2022-03-19 2022-03-19 Refill [place], 1.2.840.1 [id number] 220455 0808 Methodi 00:00:00 00:00:00 Blaise Keyes 71082.1.1 874 [address] t 3.430.2.7 Hospit a .3.342017 l .8 2022-03-16 2022-03-16 Travel 1.2.840.1 1.2.360.177 9600 773390 Methodi 00:00:00 00:00:[address] 3.430.2.7 0.2.7.3.698 Ho spita .3.276826 084.8 l .8 2022-03-16 2022-03-16 Travel 1.2.840.1 1.2.661.454 2380 995345 Methodi 00:00:00 00:00:[address] 3.430.2.7 0.2.7.3.698 Ho spita .3.933483 084.8 l .8 2022-03-15 2022-03-15 [facility] Augustine Li 1.2.840.1 [id number] 21 [id number] Methodi 11:18:33 23:59:00 Encounter Jay 56906.1.[address] [place] 3.430.2.7 Hospit a .3.170476 l .8 2022-03-15 2022-03-15 [facility] Augustine Li 1.2.840.1 [id number] 21 [id number] Methodi 11:18:33 23:59:00 Encounter Jay 85382.1.[address] [place] 3.430.2.7 Hospit a .3.292996 l .8 2022-03-15 2022-03-15 Office Korin [place] 1.2.840.1 1040 91610 9311858386 Methodi 11:00:00 11:29:32 Visit [place] 93192.1.[address] 3.430.2.7 Hospit a .3.449135 l .8 2022-03-15 2022-03-15 Office Korin [place] 1.2.840.1 1040 70849 7662067215 Methodi 11:00:00 11:29:32 [place] 75378.1.[address] 3.430.2.7 Hospit a .3.819810 l .8 2022-03-15 2022-03-15 [facility] Guillermo Augustine 1.2.840.1 [id number] 21 [id number] Methodi 11:17:24 11:17:24 Encounter Jay 52372.1.[address] [place] 3.430.2.7 Hospit a .3.284902 l .8 2022-03-15 2022-03-15 [facility] Guillermo Augustine 1.2.840.1 [id number] 21 [id number] Methodi 11:17:24 11:17:24 Encounter Jay 31275.1.[address] [place] 3.430.2.7 Hospit a .3.199334 l .8 2022-03-15 2022-03-15 [facility] GuillermoAugustine 1.2.840.1 [id number] 21 [id number] Methodi 11:17:23 11:17:23 Encounter Jay 29081.1.[address] [place] 3.430.2.7 Hospit a .3.003447 l .8 2022-03-15 2022-03-15 [facility] GuillermoAugustine 1.2.840.1 [id number] 21 [id number] Methodi 11:17:23 11:17:23 Encounter Jay 96850.1.[address] [place] 3.430.2.7 Hospit a .3.179470 l .8 2022-03-15 2022-03-15 Outpatient AUGUSTINE LI [facility] 2100 [id number] [place] 00:00:00 00:00:[address] 2022-03-15 2022-03-15 Orders Augustine Li 1.2.840.1 [id number] Methodi 00:00:00 00:00:00 Only Jay 48083.1.[address] [place] 3.430.2.7 Hospit a .3.334658 l .8 2022-03-15 2022-03-15 Travel 1.2.840.1 1.2.662.971 6302 055627 Methodi 00:00:00 00:00:[address] 3.430.2.7 0.2.7.3.698 Ho spita .3.141615 084.8 l .8 2022-03-15 2022-03-15 Orders Augustine Li 1.2.840.1 [id number] 937 [id number] Methodi 00:00:00 00:00:00 Only Jay 32281.1.[address] [place] 3.430.2.7 Hospit a .3.928165 l .8 2022-03-15 2022-03-15 Travel 1.2.840.1 1.2.464.971 6521 129200 Methodi 00:00:00 00:00:[address] 3.430.2.7 0.2.7.3.698 Ho spita .3.567401 084.8 l .8 2022-03-12 2022-03-12 Refill Taryn, 1.2.840.1 [id number] 8633 Methodi 00:00:00 00:00:[address] B. 3.430.2.7 Hospit a .3.209441 l .8 2022-03-12 2022-03-12 Refill Taryn, 1.2.840.1 [id number] 804012 8369 Methodi 00:00:00 00:00:[address] B. 3.430.2.7 Hospit a .3.607278 l .8 2022-03-02 2022-03-02 Telephone Taryn, 1.2.840.1 [id number] Methodi 00:00:00 00:00:[address] B. 3.430.2.7 Hospit a .3.825863 l .8 2022-03-02 2022-03-02 Telephone Taryn, 1.2.840.1 [id number] Methodi 00:00:00 00:00:[address] B. 3.430.2.7 Hospit a .3.546433 l .8 2022-02-23 2022-02-23 Orders Drake, 1.2.840.1 [id number] 1011 Methodi 00:00:00 00:00:00 Only Yvonne 75333.1.[address] Ashanti 3.430.2.7 Hospi ta .3.767004 l .8 2022-02-23 2022-02-23 Orders Drake, 1.2.840.1 [id number] 2704 Methodi 00:00:00 00:00:00 Only Yvonne 08573.1.[address] [place]anti 3.430.2.7 Hospi ta .3.804349 l .8 2022-02-21 2022-02-21 Telephone Taryn, 1.2.840.1 [id number] 2100 [id number] Methodi 00:00:00 00:00:[address] B. 3.430.2.7 Hospit a .3.679217 l .8 2022-02-21 2022-02-21 Telephone Taryn, 1.2.840.1 [id number] 2100 [id number] Methodi 00:00:00 00:00:[address] B. 3.430.2.7 Hospit a .3.983285 l .8 2022-02-20 2022-02-20 Orders Taryn, 1.2.840.1 [id number] 5907 Methodi 00:00:00 00:00:00 Only Korin 54692.1.[address] B. 3.430.2.7 Hospit a .3.519051 l .8 2022-02-20 2022-02-20 Dionne Jorgensen 1.2.840.1 [id number] Methodi 00:00:00 00:00:[address] 3.430.2.7 Hospit a .3.429532 l .8 2022-02-20 2022-02-20 Orders Taryn, 1.2.840.1 [id number] [id number] 2711 Methodi 00:00:00 00:00:00 Only Korin 10045.1.[address] B. 3.430.2.7 Hospit a .3.742263 l .8 2022-02-20 2022-02-20 Refill Dionne Sahu 1.2.840.1 [id number] 21 [id number] Methodi 00:00:00 00:00:[address] 3.430.2.7 Hospit a .3.487224 l .8 2022-02-12 2022-02-12 Telephone Taryn, 1.2.840.1 [id number] 2099 [id number] Methodi 00:00:00 00:00:[address] B. 3.430.2.7 Hospit a .3.476387 l .8 2022-02-12 2022-02-12 Telephone Dionne Sahu 1.2.840.1 [id number] Methodi 00:00:00 00:00:[address] 3.430.2.7 Hospit a .3.256289 l .8 2022-02-12 2022-02-12 Telephone Derrell, 1.2.840.1 [id number] 2099 362179 Methodi 00:00:00 00:00:[address] 3.430.2.7 Hospit a .3.151152 l .8 2022-02-12 2022-02-12 Telephone Taryn, 1.2.840.1 [id number] 2099 790123 Methodi 00:00:00 00:00:[address] B. 3.430.2.7 Hospit a .3.698772 l .8 2022-02-12 2022-02-12 Telephone Dionne Sahu 1.2.840.1 [id number] Methodi 00:00:00 00:00:[address] 3.430.2.7 Hospit a .3.332230 l .8 2022-02-12 2022-02-12 Telephone Derrell, 1.2.840.1 [id number] 2099 [id number] Methodi 00:00:00 00:00:[address] 3.430.2.7 Hospit a .3.487249 l .8 2022-02-05 2022-02-05 Patient Nestor, 1.2.840.1 [id number] 29449 Methodi 00:00:00 00:00:00 Outreach Nora 06969.1.[address] 3.430.2.7 Hospit a .3.487771 l .8 2022-02-05 2022-02-05 Patient Nestor, 1.2.840.1 [id number] 86035 Methodi 00:00:00 00:00:00 Outreach Nora 24400.1.[address] 3.430.2.7 Hospit a .3.995578 l .8 2022-01-19 2022-01-19 Telephone Taryn, 1.2.840.1 [id number] 2100 [id number] Methodi 00:00:00 00:00:[address] B. 3.430.2.7 Hospit a .3.699975 l .8 2022-01-19 2022-01-19 Telephone Taryn, 1.2.840.1 [id number] 2100 205736 Methodi 00:00:00 00:00:[address] B. 3.430.2.7 Hospit a .3.873798 l .8 2022-01-17 2022-01-17 Telephone Joanna Espinosa 1.2.840.1 [id number] Methodi 00:00:00 00:00:[address] 3.430.2.7 Hospit a .3.736800 l .8 2022-01-17 2022-01-17 Telephone Joanna Espinosa 1.2.840.1 [id number] Methodi 00:00:00 00:00:[address] 3.430.2.7 Hospit a .3.435281 l .8 2022-01-16 2022-01-16 Refill Taryn, 1.2.840.1 [id number] 6087 Methodi 00:00:00 00:00:[address] B. 3.430.2.7 Hospit a .3.071613 l .8 2022-01-16 2022-01-16 Refill Taryn, 1.2.840.1 [id number] 668631 8683 Methodi 00:00:00 00:00:[address] B. 3.430.2.7 Hospit a .3.479850 l .8 2022-01-15 2022-01-15 Telephone Taryn, 1.2.840.1 [id number] 2100 [id number] Methodi 00:00:00 00:00:[address] B. 3.430.2.7 Hospit a .3.862807 l .8 2022-01-15 2022-01-15 Telephone Taryn, 1.2.840.1 [id number] Methodi 00:00:00 00:00:[address] B. 3.430.2.7 Hospit a .3.939138 l .8 2022-01-01 2022-01-01 Office Taryn, 1.2.840.1 [id number] 5929 Methodi 11:30:00 12:50:42 Visit Korin 46318.1.[address] B. 3.430.2.7 Hospit a .3.965750 l .8 2022-01-01 2022-01-01 Office Taryn, 1.2.840.1 [id number] 838734 5514 Methodi 11:30:00 12:50:42 Visit Korin 31588.1.[address] B. 3.430.2.7 Hospit a .3.682157 l .8 2022-01-01 2022-01-01 Travel 1.2.840.1 1.2.848.346 0249 121973 Methodi 00:00:00 00:00:[address] 3.430.2.7 0.2.7.3.698 Ho spita .3.127618 084.8 l .8 2022-01-01 2022-01-01 Travel 1.2.840.1 1.2.196.689 4647 194442 Methodi 00:00:00 00:00:[address] 3.430.2.7 0.2.7.3.698 Ho spita .3.237670 084.8 l .8 2021-11-29 2021-11-29 Telephone Taryn, 1.2.840.1 [id number] [id number] Methodi 00:00:00 00:00:[address] B. 3.430.2.7 Hospit a .3.767521 l .8 2021-11-29 2021-11-29 Telephone Taryn, 1.2.840.1 [id number] Methodi 00:00:00 00:00:[address] B. 3.430.2.7 Hospit a .3.117436 l .8 2021-11-28 2021-11-28 Telephone Taryn, 1.2.840.1 [id number] Methodi 00:00:00 00:00:[address] B. 3.430.2.7 Hospit a .3.141372 l .8 2021-11-28 2021-11-28 Orders Taryn, 1.2.840.1 [id number] 938258 8437 Methodi 00:00:00 00:00:00 Only Korin 83218.1.[address] B. 3.430.2.7 Hospit a .3.532223 l .8 2021-11-28 2021-11-28 Telephone Taryn, 1.2.840.1 [id number] Methodi 00:00:00 00:00:[address] B. 3.430.2.7 Hospit a .3.125343 l .8 2021-11-28 2021-11-28 Orders Taryn, 1.2.840.1 [id number] 3968 Methodi 00:00:00 00:00:00 Only Korin 51999.1.[address] B. 3.430.2.7 Hospit a .3.801430 l .8 2021-11-26 2021-11-26 Telephone Taryn, 1.2.840.1 [id number] [id number] Methodi 00:00:00 00:00:[address] B. 3.430.2.7 Hospit a .3.624447 l .8 2021-11-26 2021-11-26 Telephone Taryn, 1.2.840.1 [id number] Methodi 00:00:00 00:00:[address] B. 3.430.2.7 Hospit a .3.420082 l .8 2021-11-23 2021-11-23 Telephone Taryn, 1.2.840.1 [id number] 2099 482512 Methodi 00:00:00 00:00:[address] B. 3.430.2.7 Hospit a .3.414945 l .8 2021-11-23 2021-11-23 Telephone Taryn, 1.2.840.1 [id number] 2099721 Methodi 00:00:00 00:00:[address] B. 3.430.2.7 Hospit a .3.824803 l .8 2021-11-22 2021-11-22 Telephone Taryn, 1.2.840.1 [id number] Methodi 00:00:00 00:00:[address] B. 3.430.2.7 Hospit a .3.657655 l .8 2021-11-22 2021-11-22 Telephone Dionne Sahu 1.2.840.1 [id number] Methodi 00:00:00 00:00:[address] 3.430.2.7 Hospit a .3.312737 l .8 2021-11-22 2021-11-22 Telephone Taryn, 1.2.840.1 [id number] 2099 855319 Methodi 00:00:00 00:00:[address] B. 3.430.2.7 Hospit a .3.083807 l .8 2021-11-22 2021-11-22 Telephone Dionne Sahu 1.2.840.1 [id number] Methodi 00:00:00 00:00:[address] 3.430.2.7 Hospit a .3.461775 l .8 2021-11-21 2021-11-21 Office Taryn, 1.2.840.1 [id number] 200060 5451 Methodi 15:30:00 16:30:44 Visit Korin 03741.1.[address] B. 3.430.2.7 Hospit a .3.881932 l .8 2021-11-21 2021-11-21 Office Taryn, 1.2.840.1 [id number] 2622 Methodi 15:30:00 16:30:44 Visit Korin 48624.1.[address] B. 3.430.2.7 Hospit a .3.885320 l .8 2021-11-21 2021-11-21 Travel 1.2.840.1 1.2.160.477 9168 385889 [facility]i 00:00:00 00:00:[address] 3.430.2.7 0.2.7.3.698 Ho spita .3.822868 084.8 l .8 2021-11-21 2021-11-21 Travel 1.2.840.1 1.2.166.451 0251 811774 Methodi 00:00:00 00:00:[address] 3.430.2.7 0.2.7.3.698 Ho spita .3.166078 084.8 l .8 2021-11-16 2021-11-16 Telephone Taryn, 1.2.840.1 [id number] Methodi 00:00:00 00:00:[address] B. 3.430.2.7 Hospit a .3.378642 l .8 2021-11-16 2021-11-16 Telephone Taryn, 1.2.840.1 [id number] Methodi 00:00:00 00:00:[address] B. 3.430.2.7 Hospit a .3.039833 l .8 2021-11-01 2021-11-01 Refill Taryn, 1.2.840.1 [id number] 907815 6247 Methodi 00:00:00 00:00:[address] B. 3.430.2.7 Hospit a .3.148743 l .8 2021-11-01 2021-11-01 Refill Taryn, 1.2.840.1 [id number] 960244 1067 [facility]i 00:00:00 00:00:[address] B. 3.430.2.7 Hospit a .3.416595 l .8 2021-10-30 2021-10-30 Telephone Taryn, 1.2.840.1 [id number] 2099 [id number] Methodi 00:00:00 00:00:[address] B. 3.430.2.7 Hospit a .3.912113 l .8 2021-10-30 2021-10-30 Telephone Taryn, 1.2.840.1 [id number] Methodi 00:00:00 00:00:[address] B. 3.430.2.7 Hospit a .3.340999 l .8 2021-10-28 2021-10-28 Refill Taryn, 1.2.840.1 [id number] 037678 6082 Methodi 00:00:00 00:00:[address] B. 3.430.2.7 Hospit a .3.955296 l .8 2021-10-25 2021-10-25 Telemedici Taryn, 1.2.840.1 [id number] 635 [id number] Methodi 14:30:00 14:55:33 ne Korin [address]5589.1.[address] B. 3.430.2.7 Hospit a .3.230056 l .8 2021-10-25 2021-10-25 Telephone Taryn, 1.2.840.1 [id number] 2099 675792 Methodi 00:00:00 00:00:[address] B. 3.430.2.7 Hospit a .3.000852 l .8 2021-10-24 2021-10-24 Travel 1.2.840.1 1.2.182.967 6208 246215 Methodi 00:00:00 00:00:[address] 3.430.2.7 0.2.7.3.698 Ho spita .3.003478 084.8 l .8 2021-10-08 2021-10-08 Refill Judy, 1.2.840.1 [id number] 2957 Methodi 00:00:00 00:00:00 Blaise Keyes 45491.1.1 363 s t 3.430.2.7 Hospit a .3.510927 l .8 2021-09-06 2021-09-06 Treatment Blaise Kim 1.2.840.1 185887 [id number] Methodi 12:00:00 12:56:20 Alea Mack 06322.1.[address] 3.430.2.7 Hospit a .3.209070 l .8 2021-09-04 2021-09-04 Travel 1.2.840.1 1.2.470.589 6612 289331 Methodi 00:00:00 00:00:00 29079.1.1 350.1.13.43 3 3.430.2.7 0.2.7.3.698 spita .3.384582 084.8 l .8 2021-08-17 2021-08-17 Outpatient WEINER, [facility] [id number] 770 [place] 00:00:00 00:00:00 BLAISE 827 Method i 2021-08-14 2021-08-14 Outpatient WEINER, [facility] [id number] 770 [place] 00:00:00 00:00:00 BLAISE 825 Method i 2021-08-11 2021-08-11 Outpatient WEINER, [facility] [id number] 770 [place] 00:00:00 00:00:00 BLAISE 824 Method i 2021-08-09 2021-08-09 Outpatient WEINER, [facility] [id number] 770 [place] 00:00:00 00:00:00 BLAISE 822 Method i 2021-08-02 2021-08-02 Outpatient WEINER, [facility] [id number] 809 [place] 00:00:00 00:00:00 BLAISE 295 Method i 2021-07-31 2021-07-31 Outpatient WEINER, [facility] [id number] 648 [place] 00:00:00 00:00:00 BLAISE 882 Method i 2021-07-11 2021-07-11 Outpatient WEINER, [facility] [id number] 250 [place] 00:00:00 00:00:00 BLAISE 485 Method i 2021-07-06 2021-07-06 Outpatient WEINER, [facility] [id number] 022 [place] 00:00:00 00:00:00 BLAISE 339 Method i 2021-07-06 2021-07-06 Outpatient WEINER, [facility] [id number] 022 [place] 00:00:00 00:00:00 BLAISE 517 Method i 2021-07-04 2021-07-04 Outpatient WEINER, [facility] [id number] 216 [place] 00:00:00 00:00:00 BLAISE 080 Method i 2021-06-29 2021-06-29 Outpatient TARYN, [facility] [id number] 823 [place] 00:00:00 00:00:00 KORIN [address] 2021-05-24 2021-05-24 Outpatient [facility] [id number] 031 [place] 00:00:00 00:00:[address] 2020-12-28 2020-12-28 Outpatient TARYN, [facility] [id number] [place] 00:00:00 00:00:00 KORIN [address] 2020-09-09 2020-09-09 Outpatient DIONNE SAHU [facility] [id number] [place] 00:00:00 00:00:[address] 2020-06-29 2020-06-29 Outpatient TARYN, [facility] [id number] 662 [place] 00:00:00 00:00:00 KORIN [address] 2020-06-29 2020-06-29 Outpatient TARYN, [facility] [id number] 663 [place] 00:00:00 00:00:00 KORIN [address] 2019-12-15 2019-12-15 Outpatient TARYN, [facility] [id number] 794 [place] 00:00:00 00:00:00 KORIN [address] 2019-11-13 2019-11-13 Outpatient ANDRES, [facility] [id number] 339 [place] 00:00:00 00:00:[address] WILLEM [address] 2019-11-13 2019-11-13 Outpatient ANDRES, [facility] [id number] [place] 00:00:00 00:00:00 WILLEM [address] 2019-08-20 2019-08-20 Outpatient DIONNE SAHU [facility] [id number] [id number] [place] 00:00:00 00:00:[address] 2019-08-20 2019-08-20 Outpatient DIONNE SAHU [facility] [id number] [place] 00:00:00 00:00:[address] 2019-06-11 2019-06-11 Outpatient TARYN, [facility] [id number] 798 [place] 00:00:00 00:00:00 KORIN [address] Results Test Description Test [...] kdoqi/g fr%5Fcalculator [Automated mess age] The system [employer] generated this result transmitted ref erence range: > OR = 6 0 mL/min/1.73m2. The reference range was not used to int erpret this result as normal/abnormal . BUN/creatinine ratio (test See_Comment H [Automated message] code = 3097-3) The system [facility] [facility] generated this result transmitted ref erence range: 6 - 22 ( calc). The reference r maxx was not used to interpret this result as normal/abnor mal. Sodium (test code = 140 mmol/L 370-638 9236-2) Potassium (test code = 4.5 mmol/L 3.5-5.3 2823-3) Chloride (test code = 105 mmol/L 98-110 2075-0) CO2 (test code = 8-9) 30 mmol/L 20-32 Calcium (test code = 8.9 mg/dL 8.6-10.4 53363-6) Protein (test code = 6.3 g/dL 6.1-8.1 2885-2) Albumin, S (test code = 3.8 g/dL 3.6-5.1 1751-7) Globulin, total (test code See_Comment [Automated message] = 09024-8) The system [employer] generated this result transmitted ref erence range: 1.9 - 3. 7 g/dL (calc). The ref erence range was not u sed to interpret this result as normal/abnor mal. Albumin/globulin ratio See_Comment [Aut omated message] (test code = 1759-0) The s tem which generated this result transmitted ref [...] Performing Organization Information: Site ID: RGA Name: [facility] Address: [address] [place] [address] Director: Torrey Grace [facility] Interpretation (test Abnormal code = 34801-6) [id number] 20:44:00 Test Item Value Reference Range Interpretation [...] calculated (test <100 Desira ble code = 37911-5) range <100 m g/dL for primary prevention; <70 mg/dL for patients with C HD or diabetic patients with > or = 2 CHD risk factors. LDL-C is now calculated using the Jean[place]Claude-[place] calculation, which is a validated novel method providin g better accuracy than the Friedewald equation in the estimation of LDL-C. Jean-Claude Sahu S et al. CESAR. 2013;310(19): 0960-5282 (http://educati on .[employer] .com/faq/NYZ869 ) Cholesterol/HDL See_Comment [Automated ratio (test code = message] The 9830-1) system which generated this result transmitted reference range : <5.0 (calc). Th e reference range was not used to interpret this result as normal/abnormal . Non-HDL cholesterol See_Comment For mickie ents with (test code = diabetes plus 1 95380-7) major ASCVD ris k factor, treatin g to a non-HDL-C goal of <100 mg/dL (LDL-C of <70 mg/dL) is considered a therapeutic option. [Automated message] The system which generated this result transmitted reference range : <130 mg/dL (calc). The reference range was not used to interpret this result as normal/abnormal . RAC (test code = Performing RAC) Organization Information: Site ID: RGA Name: [facility] Address: [address] [place] [address] Director: Torrey Grace Lab Interpretation Abnormal (test code = 18180-8) [facility] [id number] 20:44:00 Test Item Value Reference Range Interpretation [...] specif ic patient populat ions. Standards of Id dical Care in Diabetes(ADA). [Automated mess age] The system [employer] generated this result transmitted ref erence range: <5.7 % o f total Hgb. The reference range was not used to int erpret this result as normal/abnormal . RAC (test code = Performing RAC) Organization Information: Site ID: RGA Name: [facility] Address: [address] [place] [address] [facility] and ratio, random [id number] 20:44:00 Test Item Value Reference Range Interpretation Comments Creatinine, 103 mg/dL 20-275 urine (mg/dL) (test code = 2161-8) Microalbumin 1.7 mg/dL See Note: Reference Range : , urine Reference Range Not (test code = established 96592-5) Microalbumin See_Comment The ADA define s /creatinine [...] code = RAC) Organization Information: Site ID: RGA Name[facility] Address: [address] [place] [address] Director: [facility] [id number] 20:44:00 Test Item Value Reference Range Interpretation Comments Glucose (test code = 89 mg/dL 65-99 Fastin g 2345-7) reference interval BUN (test code = 29 mg/dL 7-25 H 3094-0) Creatinine (test 0.98 mg/dL 0.60-0.95 H code = 2160-0) eGFR (test code = 58 See_Comment L The eGFR i s based 8257) on the CKD-EPI 2020 equation. To calculate the n ew eGFR from a previous Creatinine or Cystatin Cresul t, go to https://www.kid ne y.org/profmckaylaio na ls/kdoqi/gfr%5F ca lculator [Automated message] The system which generated this result transmitted reference range : > OR = 60 mL/min/1.73m2. The reference range was not used to interpr et this result as normal/abnormal . BUN/creatinine ratio 30 See_Comment H [Autom ated (test code = 3097-3) message ] The system which generated this result transmitted reference range : 6 - 22 (calc). The reference range was not used to interpr et this result as normal/abnormal . Sodium (test code = 140 mmol/L 253-585 4521-2) Potassium (test code 4.5 mmol/L 3.5-5.3 = 2823-3) Chloride (test code 105 mmol/L 98-110 = 2075-0) CO2 (test code = 30 mmol/L 20-32 2027-9) Calcium (test code = 8.9 mg/dL 8.6-10.4 24955-2) Protein (test code = 6.3 g/dL 6.1-8.1 2885-2) Albumin, S (test 3.8 g/dL 3.6-5.1 code = 1751-7) Globulin, total 2.5 See_Comment [Automated (test code = message] The 04802-1) system which generated this result transmitted reference range : 1.9 - 3.7 g/dL (calc). The reference range was not used to interpret this result as normal/abnormal . Albumin/globulin 1.5 See_Comment [Automated ratio (test code = message] The 0) system which generated this result transmitted reference range : 1.0 - 2.5 (calc ). The reference range was not used to interpr et this result as normal/abnormal . Total bilirubin 0.4 mg/dL 0.2-1.2 (test code = 1974-2) Alkaline phosphatase 55 U/L 37-153 (test code = 6768-6) AST (test code = 18 U/L 10-35 1920-8) ALT (test code = 15 U/L 6- 174-6) RAC (test code = Performing RAC) Organization Information: Site ID: RGA Name: [facility] Address: [address] [place] [id number] Director: [facility] Interpretation Abnormal (test code = 32010-4) [id number]:44:00 Test Item Value Reference Range Interpretation Comments Cholesterol, total 134 mg/dL <=200 (test code = 2093-3) HDL cholesterol 49 mg/dL See_Comment L [Automated (test code = 2084-) message ] The system which generated this result transmitted reference range : > OR = 50. The reference range was not used to interpret this result as normal/abnormal . Triglycerides (test 47 mg/dL <=150 code = 2571-8) LDL cholesterol 72 mg/dL (calc) Reference ra nge: calculated (test <100 Desira ble code = 25079-0) range <100 m g/dL for primary prevention; <70 mg/dL for patients with C HD or diabetic patients with > or = 2 CHD risk factors. LDL-C is now calculated using the Jean-Claude-[place] calculation, which is a validated novel method providin g better accuracy than the Friedewald equation in the estimation of LDL-C. Jean-Claude S S et al. CESAR. 2013;310(19): 8583-0209 (http://educati on .Dabble .com/faq/YTL619 ) Cholesterol/HDL 2.7 See_Comment [Automated ratio (test code = message] The 9830-1) system which generated this result transmitted reference range : <5.0 (calc). Th e reference range was not used to interpret this result as normal/abnormal . Non-HDL cholesterol 85 See_Comment For mickie ents with (test code = diabetes plus 1 20986-9) major ASCVD ris k factor, treatin g to a non-HDL-C goal of <100 mg/dL (LDL-C of <70 mg/dL) is considered a therapeutic option. [Automated message] The system which generated this result transmitted reference range : <130 mg/dL (calc). The reference range was not used to interpret this result as normal/abnormal . RAC (test code = Performing RAC) Organization Information: Site ID: [facility] Name: [facility] Address: [address] [place] [id number] Director: [facility] Interpretation Abnormal (test code = 07619-2) [facility] [id number] 20:44:00 Test Item Value Reference Range Interpretation Comments Hemoglobin A1C 5.6 See_Comment For the purpo se of (test [...] specif ic patient populat ions. Standards of Id dical Care in Diabetes(ADA). [Automated mess age] The system [employer] generated this result transmitted ref erence range: <5.7 % o f total Hgb. The reference range was not used to int erpret this result as normal/abnormal . RAC (test code = Performing RAC) Organization Information: Site ID: [facility] Address: [address] [place] [phone] [facility] and ratio, random [id number] 20:44:00 Test Item Value Reference Range Interpretation Comments Creatinine, 103 mg/dL 20-275 urine (mg/dL) (test code = 2161-8) Microalbumin 1.7 mg/dL See Note: Reference Range : , urine Reference Range Not (test code = established 12744-6) Microalbumin 17 See_Comment The ADA define s /creatinine abnormalities [...] patient to bewi thin a diagnostic javid gory. [Automated mess age] The system which ge nerated this result tra nsmitted reference range : <30 mcg/mg creat. T he reference range was not used to interpr et this result as normal/abnormal . RAC (test Performing code = RAC) Organization Information: Site ID: [facility] Address: [address] [place] [phone] Director: [facility] metabolic [id number] 09:45:00 Test Item Value Reference Interpretation Comments [...] EGFR Non-Afr. See_Comment L [Automated me ssage] Lebanese (test code The syst em which = 2775) generated this result transmit peewee reference range : > OR = 60 mL/min/1.73m2. The reference range was not used to interpret this result as normal/abnormal . EGFR See_Comment L [Automated mes cinthia] Lebanese (test code The syst em which = [...] . Sodium (test code = 137 mmol/L 301-653 5516-2) Potassium (test 4.6 mmol/L 3.5-5.3 code = 2823-3) Chloride (test code 103 mmol/L 98-110 = 2075-0) CO2 (test code = 27 mmol/L 20-32 2027-9) Calcium (test code 9.4 mg/dL 8.6-10.4 = 00368-3) MICHAEL (test code = COLLECTION MICHAEL) REQUIREMENTS NOT MET. PATIENT ADVISED TO RETURN. RAC (test code = Performing RAC) Organization Information: Site ID: [facility]: [facility] Address: [address] [place] [id number] Director: Torrey Grace Lab Interpretation Abnormal (test code = 39951-3) [facility] metabolic [id number] 09:45:00 Test Item Value Reference Interpretation Comments Range Glucose (test code 94 mg/dL 65-99 Fasting reference = 2345-7) interval BUN (test code = 30 mg/dL 7-25 H 3094-0) Creatinine (test 1.10 mg/dL 0.60-0.88 H For patient s >49 code = 2160-0) years of age, the reference limit for Creatinine is approximately 1 3% higher for peopleidentifie d as -Sunita n. EGFR Non-Afr. 47 See_Comment L [Automated me ssage] Lebanese (test code The syst em which = 8618) generated this result transmit peewee reference range : > OR = 60 mL/min/1.73m2. The reference range was not used to interpret this result as normal/abnormal . EGFR 55 See_Comment L [Automated mes cinthia] Lebanese (test code The syst em which = 0603) generated this result transmit peewee reference range : > OR = 60 mL/min/1.73m2. The reference range was not used to interpret this result as normal/abnormal . BUN/creatinine 27 See_Comment H [Automated m essage] ratio (test code = The syste m which 3097-3) generated this result transmit peewee reference range : 6 - 22 (calc). The reference range was not used to interpret this result as normal/abnormal . Sodium (test code = 137 mmol/L 061-762 9486-2) Potassium (test 4.6 mmol/L 3.5-5.3 code = 2823-3) Chloride (test code 103 mmol/L 98-110 = 2075-0) CO2 (test code = 27 mmol/L 20-32 2027-9) Calcium (test code 9.4 mg/dL 8.6-10.4 = 29322-5) MICHAEL (test code = COLLECTION MICHAEL) REQUIREMENTS NOT MET. PATIENT ADVISED TO RETURN. RAC (test code = Performing RAC) Organization Information: Site ID: [facility] Name: [facility] Address: [address] [place] [phone] Director: Torrey Grace Lab Interpretation Abnormal (test code = 41332-1) [facility] WITH REFLEX TO [id number] 22:31:00 Test Item Value Reference Interpretation Comments Range Color, UA (test code YELLOW YELLOW = 5778-6) Appearance (test CLEAR CLEAR code = 5767-9) Specific gravity, 1.001-1.035 urine (test code = 5811-5) pH, urine (test code < OR = 5.0 5.0-8.0 = 5803-2) Glucose, urine (test NEGATIVE NEGATIVE code = 52806-3) Bilirubin, UA (test NEGATIVE NEGATIVE code = 5770-3) Ketones, UA (test TRACE NEGATIVE A code = 2514-8) Occult blood, urine NEGATIVE NEGATIVE (test code = 5794-3) Protein, UA (test TRACE NEGATIVE A code = 24804-9) Nitrite, UA (test POSITIVE NEGATIVE A code [...] code = NONE SEEN See_Comment [Autom ated 33425-4) message] The sy stem which generated this result transmitted reference range : < OR = 2 /HPF. Th e reference range was not used to interpret this result as normal/abnormal . Squamous epithelial 10-20 See_Comment A [Automa peewee cells, UA (test code message ] The system = 97773-6) which generated this result transmitted reference range [...] URINE, code = 630-4) ROUTINE Micro Number: [id number] Test Status: Fi nal Specimen Source : Urine Specimen Quality: Adequa te Result: Greater than 100,000 CF U/mL of Escherichia coli (ESBL) 10,000-49,000 CFU/mL of Group B Streptococcus isolated Beta-hemolytic streptococci ar e predictably susceptible to Penicillin and other beta-lact ams. Susceptibility testing not routinely performed. Shayy march contact the laboratory with in 3 days if susceptibility testing is jozef red. Comment: Erythromycin an d clindamycin are not recommended for treatment of urinary tract infections, but clindamycin may be useful for treatment in penicillin melissa rgic patients for rectovaginal colonization or for intrapartum prophylaxis if indicated. E.co li (ESBL) - INT OLIVIER AMOX/CLAVULANAT E S 4 AMPICILLIN R >=32 1 AMP/SULBACT AM S 4 CEFAZOLIN R > =64 2 CEFEPIME S 2 CEFTRIAXONE R > =64 CIPROFLOXACIN S <=0.25 GENTAMIC IN S <=1 IMIPENEM S <=0.25 LEVOFLOX ACIN S <=0.12 NITROFURANTOIN I 64 PIP/TAZOBACTAM S <=4 TOBRAMYCIN S <=1 TRIMETHOPRIM/CHAMBERS LFA S <=20 ESBL RESULT: * 3 S=Susceptible I=Intermediate R=Resistant * = Not TestedNR = [...] RAC) Organization Information: Site ID: A [facility]: [facility] Address: [address] [place] [phone] Director: Torrey Grace Lab Interpretation Abnormal (test code = 07392-8) [facility] [id number] 22:31:00 Test Item Value Reference Interpretation Comments Range Color, UA (test code YELLOW YELLOW = 5778-6) Appearance (test CLEAR CLEAR code = 5767-9) Specific gravity, 1.023 1.001-1.035 urine (test code = 5811-5) pH, urine (test code < OR = 5.0 5.0-8.0 = 5803-2) Glucose, urine (test NEGATIVE NEGATIVE code = 02503-1) Bilirubin, UA (test NEGATIVE NEGATIVE code = 5770-3) Ketones, UA (test TRACE NEGATIVE A code = 2514-8) Occult blood, urine NEGATIVE NEGATIVE (test code = 5794-3) Protein, UA (test TRACE NEGATIVE A code = 20736-1) Nitrite, UA (test POSITIVE NEGATIVE A code [...] code = NONE SEEN See_Comment [Autom ated 78748-2) message] The sy stem which generated this result transmitted reference range : < OR = 2 /HPF. Th e reference range was not used to interpret this result as normal/abnormal . Squamous epithelial 10-20 See_Comment A [Automa peewee cells, UA (test code message ] The system = 68080-6) which generated this result transmitted reference range [...] URINE, code = 630-4) ROUTINE Micro Number: [id number] Test Status: Fi nal Specimen Source [...] colonization or for intrapartum prophylaxis if indicated. E.co li (ESBL) - INT OLIVIER AMOX/CLAVULANAT E S 4 AMPICILLIN R >=32 1 AMP/SULBACT AM S 4 CEFAZOLIN R > =64 2 CEFEPIME S 2 CEFTRIAXONE R > =64 CIPROFLOXACIN S <=0.25 GENTAMIC IN S <=1 IMIPENEM S <=0.25 LEVOFLOX ACIN S <=0.12 NITROFURANTOIN I 64 PIP/TAZOBACTAM S <=4 TOBRAMYCIN S <=1 TRIMETHOPRIM/CHAMBERS LFA S <=20 ESBL RES ULT: * 3 S=Susceptible I=Intermediate R=Resistant * = Not TestedNR = [...] = Performing RAC) Organization Information: Site ID: [facility] Name: [facility] Address: [address] [place] [phone] Director: Torrey Grace Lab Interpretation Abnormal (test code = 21779-3) [facility] Hospital[facility] stimulating [id number] 05:07:00 Test Item Value Reference Range Interpretation [...] code = RAC) Organization Information: Site ID: [facility] Name: [facility] Address: [address] [place] [phone] Director: Torrey Grace [facility] with platelet and [id number] 05:07:00 Test Item Value Reference Range Interpretation [...] = Performing RAC) Organization Information: Site ID: [facility] Name: [facility] Address: [address] [place] [phone] Director[facility] [id number] 05:07:00 Test Item Value Reference Range Interpretation Comments TSH (test 0.54 See_Comment [Automated mes cinthia] code = The system ic h 3016-3) generated this result transmit peewee reference range : 0.40 - 4.50 mIU /L. The reference r maxx was not used to interpret this result as normal/abnormal . MICHAEL (test PATIENT UNABLE TO code = MICHAEL) VOID; ADVISED TO RETURN FOR COLLECTION. RAC (test Performing code = RAC) Organization Information: Site ID: [facility] Name: [facility] Address: [address] [place] [phone] Director: [facility] with platelet and [id number] 05:07:00 Test Item Value Reference Range Interpretation Comments WBC (test code = 9.4 See_Comment [Automated 6690-2) message] The system which generated this result transmitted reference range : 3.8 - 10.8 Thousand/uL. Th e reference range was not used to interpret this result as normal/abnormal . RBC (test code = 4.01 See_Comment [Automated 789-8) message] The system which [...] = 13.1 % 11.0-15.0 788-0) Platelet count 247 See_Comment [Automated (test code = message] The 777-3) system which generated this result transmitted reference range : 140 - 400 Thousand/uL. Th e reference range was not used to interpret this result as normal/abnormal . MPV (test code = 10.8 fL 7.5-12.5 776-5) Neutrophils, 5264 See_Comment [Automated absolute (test message] The code = 751-8) system which generated this result transmitted reference range : 1,500 - 7,800 cells/uL. The reference range was not used to interpret this result as normal/abnormal . Lymphocytes, 3130 See_Comment [Automated absolute (test message] The code = 731-0) system which generated this result transmitted reference range : 850 - 3,900 cells/uL. The reference range was not used to interpret this result as normal/abnormal . Monocytes, 686 See_Comment [Automated absolute (test message] The code = 742-7) system which generated this result transmitted reference range : 200 - 950 cells/uL. The reference range was not used to interpret this result as normal/abnormal . Eosinophils, 273 See_Comment [Automated absolute (test message] The code = 711-2) system which generated this result transmitted reference range : 15 - 500 cells/uL. The reference range was not used to interpret this result as normal/abnormal . Basophils, 47 See_Comment [Automated absolute (test message] The code [...] RAC) Organization Information: Site ID: [facility]GA [facility] Address: [address] [place] [phone] Director: Torrey Cassius Grace [facility]
[2022-10-29 18:58] LABS: Absolute Lymphocytes (CBC) 1.8 K/uL (0.7-4.9); Hematocrit 34.3 % (36.0-45.0); MCV 93.4 fL (80-100); MPV 7.6 fL (7.6-11.3); RBC Red Blood Cell Count 3.67 M/uL (3.86-4.86)
[2022-10-29 19:02] LABS: Protime INR 1.1
--- NOTE | 2022-10-29 19:08 | RAD REPORT ---
[facility] CLINICAL HISTORY: syncope COMPARISON: Chest Single View dated 08/30/2022; Chest Single View dated 01/20/2022 TECHNIQUE: Portable AP view of the chest. FINDINGS: The lungs are clear.Stable bibasilar atelectatic changes. Mild right pleural thickening al nanci the minor fissure versus trace effusion. No pneumothorax or sizable effusion. The cardiomediastin al contours are unremarkable. Sequelae of median sternotomy again noted. IMPRESSION: Mild right pleural thickening along the minor fissure versus trace effusion. No other ac morongo cardiopulmonary process.
[2022-10-29 19:15] LABS: Albumin 3.5 g/dL (3.4-5.0); Bilirubin Direct 0.1 mg/dL (0-0.2); Bilirubin Total 0.3 mg/dL (0.2-1.0); Magnesium 2.1 mg/dL (1.6-2.4); Potassium 3.9 mmol/L (3.5-5.1); Protein, Total 6.7 g/dL (6.4-8.2); Troponin High Sensitivity 11.5 pg/mL (<58.9)
--- NOTE | 2022-10-29 19:26 | RAD REPORT ---
EXAM DESCRIPTION: CT - Head Brain Wo Cont - 10/29/2022 7:07 pm CLINICAL HISTORY: SYNCOPE COMPARISON: Head Brain Wo Cont dated 01/20/2022 TECHNIQUE: Noncontrast head CT images ad were obtained without IV contrast. Multiplanar reformats we re generated and reviewed. All CT scans are performed using dose optimization technique as appropriate and may include automated exposure control or mA/KV adjustment according to patient size. FINDINGS: No intracranial hemorrhage, mass, or edema. Midline structures are unremarkable. Mild diffuse parenchymal volume loss. Ventricular is stable. Gómez-white matter differentiation is preserved, without evidence of acute infarct. No abnormal extra- axial fluid collections. Mastoid air cells and visualized portions of the paranasal sinuses are clear. No acute bony findings. IMPRESSION: No evidence of an acute intracranial process.
[2022-10-29 19:48] LABS: Urine Blood Negative (Negative); Urine Glucose Negative (Negative); Urine Protein Negative (Negative); Urine pH 5.5 (5.0-7.0)
--- NOTE | 2022-10-29 20:15 | EDPHYS ---
Physician Documentation [facility] Name: Darlyn Nicole Age: 82 yrs Sex: Female : 1940 Arrival Date: 10/29/2022 Time: 18:33 Bed 3 Private MD: ED Physician Adelina Urrutia HPI: 10/29 20:11 This 82 yrs old Female presents to ER via EMS with complaints of Syncope. sp3 20:11 82-year-old female with history of CAD, hypercholesterolemia, prior syncope presents to sp3 the ED for syncope just after using the restroom and being dizzy and unsteady on her feet. No other symptoms including headache, neck pain, chest pain, shortness of breath, abdominal pain, focal neurodeficit, nausea, vomiting, diarrhea, rash, travel history, known sick contacts, or any other symptoms on ROS at this time.. Historical: - Allergies: 18:38 Amoxicillin; ap3 18:38 Macrobid; ap3 18:38 Metoprolol Tartrate; ap3 18:38 rosuvastatin; ap3 - Home Meds: 18:38 amlodipine 2.5 mg oral tab [Active]; atorvastatin 40 mg oral tab [Active]; gabapentin ap3 600 mg oral tab [Active]; lisinopril 40 mg oral tab [Active]; Myrbetriq 50 mg oral Tb24 [Active]; omeprazole 20 mg oral TbEC [Active]; Propranolol Oral [Active]; Folbee oral [Active]; clonidine HCl 0.1 mg Oral tab 1 tab once daily [Active]; - PMHx: 18:38 CAD; depressive disorder; Hypercholesterolemia; osteoarthritis; Osteopenia; restless ap3 leg syndrome; Sleep Apnea; syncope; - PSHx: 18:38 CABG; ap3 - Immunization history:: Client reports having NOT received the Covid vaccine. - Social history:: Smoking status: Patient denies any tobacco usage or history of. ROS: 20:12 Constitutional: Negative for fever, chills, and weight loss, Eyes: Negative for injury, sp3 pain, redness, and discharge, ENT: Negative for injury, pain, and discharge, Neck: Negative for injury, pain, and swelling, Cardiovascular: Negative for chest pain, palpitations, and edema, Respiratory: Negative for shortness of breath, cough, wheezing, and pleuritic chest pain, Abdomen/GI: Negative for abdominal pain, nausea, vomiting, diarrhea, and constipation, Back: Negative for injury and pain, MS/Extremity: Negative for injury and deformity, Skin: Negative for injury, rash, and discoloration, Allergy/Immunology: Negative for hives, rash, and allergies, Endocrine: Negative for neck swelling, polydipsia, polyuria, polyphagia, and marked weight changes, Hematologic/Lymphatic: Negative for swollen nodes, abnormal bleeding, and unusual bruising. 20:12 All other systems are negative. Exam: 20:12 Constitutional: This is a well developed, well nourished patient who is awake, alert, sp3 and in no acute distress. Head/Face: Normocephalic, atraumatic. Eyes: Pupils equal round and reactive to light, extra-ocular motions intact. Lids and lashes normal. Conjunctiva and sclera are non-icteric and not injected. Cornea within normal limits. Periorbital areas with no swelling, redness, or edema. ENT: Nares patent. No nasal discharge, no septal abnormalities noted. External auditory canals are clear. Oropharynx with no redness, swelling, or masses, exudates, or evidence of obstruction, uvula midline. Mucous membranes moist. Neck: Trachea midline, no thyromegaly or masses palpated, and no cervical lymphadenopathy. Supple, full range of motion without nuchal rigidity, or vertebral point tenderness. No Meningismus. Chest/axilla: Normal chest wall appearance and motion. Nontender with no deformity. No lesions are appreciated. Cardiovascular: Regular rate and rhythm with a normal S1 and S2. No gallops, murmurs, or rubs. Normal PMI, no JVD. No pulse deficits. Respiratory: Lungs have equal breath sounds bilaterally, clear to auscultation and percussion. No rales, rhonchi or wheezes noted. No increased work of breathing, no retractions or nasal flaring. Back: No spinal tenderness. No costovertebral tenderness. Full range of motion. MS/ Extremity: Pulses equal, no cyanosis. Neurovascular intact. Full, normal range of motion. Psych: Awake, alert, with orientation to person, place and time. Behavior, mood, and affect are within normal limits. 20:12 Neuro: No focal neurodeficits. Patient is ambulatory although is unsteady on her feet. Patient's family states that this is baseline and she has 24-hour caregiver at home as well as several walkers.. Vital Signs: 18:33 BP 115 / 86; Pulse 61; Resp 18; Temp 97.8; Pulse Ox 98% ; Weight 54.43 kg; ap3 19:25 BP 100 / 47 Supine; Pulse 61; Resp 19 S; Pulse Ox 99% on R/A; as6 19:27 BP 110 / 51 Sitting; Pulse 62; Resp 18 S; Pulse Ox 100% on R/A; as6 19:29 BP 99 / 57 Standing; Pulse 64; Resp 17 S; Pulse Ox 98% on R/A; as6 20:27 BP 100 / 49; Pulse 62; Resp 13 S; Pulse Ox 96% on R/A; as6 MDM: 18:41 Patient medically screened. ms3 20:13 Data reviewed: vital signs, nurses notes, lab test result(s), EKG, radiologic studies. sp3 ED course: 82-year-old female with syncope. Differential diagnosis includes vasovagal syncope, cardiac event, ICH, CVA, among others. Clinically I do not believe patient has vascular compromise including dissection, sepsis, shock, embolic disease, any other critical findings. CT scan of the head demonstrates no significant abnormality and laboratory values are normal except for creatinine of 1.47 with a negative troponin. I extensive conversation with patient and family in a joint decision making effort and they all agree that patient will be best served being discharged home given the fact that she has 24-hour care at home along with several assist ambulation devices and walkers. I assured patient that they can return at any time if they change her mind.. 10/29 18:36 Order name: Basic Metabolic Panel; Complete Time: 19:45 ms3 10/29 18:36 Order name: CBC with Diff; Complete Time: 19:45 ms3 10/29 18:36 Order name: Hepatic Function; Complete Time: 19:45 ms3 10/29 18:36 Order name: Magnesium; Complete Time: 19:45 ms3 10/29 18:36 Order name: Protime (+inr); Complete Time: 19:45 ms3 10/29 18:36 Order name: Ptt, Activated; Complete Time: 19:45 ms3 10/29 18:36 Order name: Troponin High Sensitivity; Complete Time: 19:45 ms3 10/29 18:36 Order name: CT Head Brain wo Cont; Complete Time: 19:45 ms3 10/29 18:36 Order name: Chest Single View XRAY; Complete Time: 19:45 ms3 10/29 18:36 Order name: EKG; Complete Time: 18:37 ms3 10/29 18:36 Order name: Cardiac monitoring; Complete Time: 18:43 ms3 10/29 18:36 Order name: EKG - Nurse/Tech; Complete Time: 18:43 ms3 10/29 18:36 Order name: IV Saline Lock; Complete Time: 18:52 ms3 10/29 19:48 Order name: Urine Dipstick-Ancillary; Complete Time: 19:59 EDMS 10/29 18:36 Order name: Labs collected and sent; Complete Time: 18:52 ms3 10/29 18:36 Order name: NPO; Complete Time: 18:43 ms3 10/29 18:36 Order name: O2 Per Protocol; Complete Time: 18:43 ms3 10/29 18:36 Order name: O2 Sat Monitoring; Complete Time: 18:43 ms3 10/29 18:36 Order name: Orthostatics; Complete Time: 19:38 ms3 10/29 18:36 Order name: Urine Dipstick-Ancillary (obtain specimen); Complete Time: 20:20 ms3 Administered Medications: No medications were administered Disposition Summary: 10/29/22 20:15 Discharge Ordered Location: Home sp3 Condition: Stable sp3 Diagnosis - Vasovagal syncope sp3 Followup: sp3 - With: Private Physician - When: Upon discharge from the Emergency Department - Reason: If symptoms return Discharge Instructions: - Discharge Summary Sheet sp3 - Syncope sp3 Forms: - Medication Reconciliation Form sp3 - Thank You Letter sp3 - Antibiotic Education sp3 - Prescription Opioid Use sp3 Signatures: Dispatcher [employer] Génesis Rouse RN RN isauro3 Darian Palomo DO DO ms3 Adelina Urrutia MD MD sp3
--- NOTE | 2022-10-29 20:15 | ER ---
Nurse's Notes [facility] Name: Darlyn Nicole Age: 82 yrs Sex: Female : 1940 Arrival Date: 10/29/2022 Time: 18:33 Bed 3 Private MD: Diagnosis: Vasovagal syncope Presentation: 10/29 18:33 Chief complaint: EMS states: patient was using the restroom, having a bowel movement ap3 with the home health nurse when she had a syncopal episode. EMS reports the patients systolic bp on scene was 78 with a pulse of 60. EMS initiated a 20g IV in the right FA, and started NS fluids in that IV site. patient also received 324mg ASA in route. Coronavirus screen: At this time, the client does not indicate any symptoms associated with coronavirus-19. Ebola Screen: No symptoms or risks identified at this time. Initial Sepsis Screen: Does the patient meet any 2 criteria? No. Patient's initial sepsis screen is negative. Does the patient have a suspected source of infection? No. Patient's initial sepsis screen is negative. Risk Assessment: Do you want to hurt yourself or someone else? Patient reports no desire to harm self or others. Onset of symptoms was October 29, 2022. 18:33 Method Of Arrival: EMS: [facility] ap3 18:33 Acuity: JOSEFINA 2 ap3 Triage Assessment: 18:41 General: Appears slender, Behavior is calm. Pain: Denies pain. Neuro: Level of ap3 Consciousness is awake, alert, obeys commands, Oriented to person, place, time, Reports a syncopal episode weakness. Cardiovascular: Patient's skin is warm and dry. Respiratory: Airway is patent Respiratory effort is even, unlabored, Respiratory pattern is regular, symmetrical. Historical: - Allergies: 18:38 Amoxicillin; ap3 18:38 Macrobid; ap3 18:38 Metoprolol Tartrate; ap3 18:38 rosuvastatin; ap3 - Home Meds: 18:38 amlodipine 2.5 mg oral tab [Active]; atorvastatin 40 mg oral tab [Active]; gabapentin ap3 600 mg oral tab [Active]; lisinopril 40 mg oral tab [Active]; Myrbetriq 50 mg oral Tb24 [Active]; omeprazole 20 mg oral TbEC [Active]; Propranolol Oral [Active]; Folbee oral [Active]; clonidine HCl 0.1 mg Oral tab 1 tab once daily [Active]; - PMHx: 18:38 CAD; depressive disorder; Hypercholesterolemia; osteoarthritis; Osteopenia; restless ap3 leg syndrome; Sleep Apnea; syncope; - PSHx: 18:38 CABG; ap3 - Immunization history:: Client reports having NOT received the Covid vaccine. - Social history:: Smoking status: Patient denies any tobacco usage or history of. Screenin:42 Abuse screen: Denies threats or abuse. Nutritional screening: No deficits noted. ap3 Tuberculosis screening: No symptoms or risk factors identified. Assessment: 19:57 General: walk test performed by me. pt with unsteady gait. pt reports dizziness. . kd3 Vital Signs: 18:33 BP 115 / 86; Pulse 61; Resp 18; Temp 97.8; Pulse Ox 98% ; Weight 54.43 kg; ap3 19:25 BP 100 / 47 Supine; Pulse 61; Resp 19 S; Pulse Ox 99% on R/A; as6 19:27 BP 110 / 51 Sitting; Pulse 62; Resp 18 S; Pulse Ox 100% on R/A; as6 19:29 BP 99 / 57 Standing; Pulse 64; Resp 17 S; Pulse Ox 98% on R/A; as6 20:27 BP 100 / 49; Pulse 62; Resp 13 S; Pulse Ox 96% on R/A; as6 ED Course: 18:33 Patient arrived in ED. ap3 18:35 Darian Palomo DO is Attending Physician. ms3 18:37 Triage completed. ap3 18:38 Missed attempt(s): 22 gauge in left antecubital area. vg1 18:42 Arm band placed on right wrist. ap3 18:42 Patient has correct armband on for positive identification. Bed in low position. Call ap3 light in reach. Side rails up X 1. farm operator on. Pulse ox on. NIBP on. Door closed. Noise minimized. 18:52 Initial lab(s) drawn, by me, sent to lab. Inserted saline lock: 20 gauge in left em1 antecubital area, using aseptic technique. Blood collected. 18:54 Génesis Kessler, SEDRICK is Primary Nurse. ap3 18:54 Missed attempt(s): 20 gauge in right antecubital area. ap3 18:54 Maintain EMS IV. Dressing intact. Good blood return noted. Site clean \T\ dry. Gauge \T\ ap 3 site: 20g right AC. 18:58 Chest Single View XRAY In Process Unspecified. EDMS 19:08 Attending Physician role handed off by Darian Palomo DO sp3 19:08 Adelina Urrutia MD is Attending Physician. sp3 19:09 CT Head Brain wo Cont In Process Unspecified. EDMS 20:47 No provider procedures requiring assistance completed. IV discontinued, intact, ll3 bleeding controlled, No redness/swelling at site. Pressure dressing applied. Administered Medications: No medications were administered Medication: 20:48 VIS not applicable for this client. ll3 Outcome: 20:15 Discharge ordered by . sp3 20:47 Discharged to home via wheelchair, with family. ll3 20:47 Condition: stable 20:47 Discharge instructions given to family, Instructed on discharge instructions, follow up and referral plans. Demonstrated understanding of instructions, follow-up care. 20:59 Patient left the ED. ll3 Signatures: Dispatcher [employer] Rommel Acharya em1 Génesis Kessler RN RN ap3 Shani Andrew, RN RN vg1 Darian Palomo DO DO ms3 Adelina Urrutia MD MD sp3 Mike Mckenzie RN RN as6 Stephani Leon RN RN ll3 Stephanie Leonardo, RN RN kd3
[2022-10-29 21:39] VITALS: TEMP 97.8
[2022-10-29 21:52] VITALS: BP 100/49; O2SAT 96
--- NOTE | 2022-10-30 12:51 | EKG ---
Test Date: 2022-10-29 Test Time: 18:26:05 Curator Of Manuscripts: JAMIR MEASUREMENT RESULTS: Intervals: Rate: 60 LA: 264 QRSD: 92 QT: 434 QTc: 434 [place]: P: 69 LA: 264 QRS: 70 T: 78 INTERPRETIVE STATEMENTS: Sinus rhythm with 1st degree AV block Otherwise normal ECG Compared to ECG 08/30/2022 11:02:35 No significant changes Electronically Signed On 10-30-22 12:49:21 [employer] by Rashaun Okeefe
== END 2022-10-29 20:59 | disposition home or self-care (01) ==
LOC: ER 18:31
DX: R55 Syncope and collapse (principal); E78.00 Pure hypercholesterolemia, unspecified; F32.A Depression, unspecified; Z88.1 Allergy status to other antibiotic agents; Z88.8 Allergy status to other drugs, medicaments and biological substances
CPT/HCPCS: 36415; 70450; 71045; 80048; 80076; 81003; 83735; 84484; 85025; 85610; 85730; 93005; 99284